=== PATIENT | female | born 1980 | race Caucasian/White ===

== ENCOUNTER 2020-01-14 17:16 | Emergency (ER) | payer OTHER ==
[2020-01-14 17:49] LABS: BILIRUBIN,URINE NEGATIVE (NEGATIVE); GLUCOSE, URINE (UA) NEGATIVE (NEGATIVE); KETONES,URINE (UA) NEGATIVE (NEGATIVE); LEUKOCYTE ESTERASE, URINE NEGATIVE (NEGATIVE); NITRITE,URINE NEGATIVE (NEGATIVE); OCCULT BLOOD,URINE NEGATIVE (NEGATIVE); PH,URINE 7.5 PH (5.0-7.5); PROTEIN,URINE NEGATIVE (NEGATIVE); UROBILINOGEN,URINE 1 (NORMAL) E.U./dL (NORMAL)
[2020-01-14 17:52] LABS: CLARITY,URINE CLEAR (CLEAR); HCG UR QUAL NEGATIVE
[2020-01-14 17:59] LABS: BASOPHILS # (AUTO) 0.1 10^3/uL (0.0-0.1); BASOPHILS % (AUTO) 0.9 %; EOSINOPHILS % (AUTO) 0.5 %; HGB - HEMOGLOBIN 15.1 g/dL (12.0-16.0); LYMPHOCYTES # (AUTO) 0.9 10^3/uL (1.5-3.5); LYMPHOCYTES % (AUTO) 13.2 %; MEAN CORPUSCULAR HEMOGLOBIN 33.9 pg (27.0-31.0); MEAN CORPUSCULAR HGB CONC 35.1 g/dL (32.0-36.0); MEAN CORPUSCULAR VOLUME 96.4 fL (81.0-99.0); MONOCYTES # (AUTO) 0.4 10^3/uL (0.0-1.0); MONOCYTES % (AUTO) 5.8 %; NEUTROPHILS # (AUTO) 5.2 10^3/uL (1.5-6.6); NEUTROPHILS % (AUTO) 79.3 %; PLT - PLATELET COUNT 261 10^3/uL (130-450); RED BLOOD COUNT 4.46 10^6/uL (4.20-5.40); RED CELL DISTRIBUTION WIDTH 12.5 % (12.0-15.0); WHITE BLOOD COUNT 6.5 x10^3/uL (4.8-10.8)
[2020-01-14 18:13] LABS: ALBUMIN 4.6 g/dL (3.2-5.5); ALBUMIN/GLOBULIN RATIO 1.4 (1.0-2.2); BILIRUBIN,TOTAL 1.2 mg/dL (0.2-1.0); CALCIUM 9.5 mg/dL (8.5-10.3); CREATININE 0.6 mg/dL (0.4-1.0); TOTAL PROTEIN 7.8 g/dL (6.7-8.2)
--- NOTE | 2020-01-14 18:52 | ED Physician Documentation ---
PD HPI FEMALE - Stated complaint Stated Complaint: FEMALE - Chief complaint Chief Complaint: Abd Pain - History obtained from History obtained from: Patient - History of Present Illness Timing - onset: How many days ago (2) Timing - duration: Days (2) Timing - details: Gradual onset, Still present Associated symptoms: Pelvic pain Contributing factors: Sexually active, Exposed to STD Similar symptoms before: Diagnosis (STD) Recently seen: Not recently seen - Additional information Additional information: 39 y/o female complains of pelvic cramping pain without discharge that has been present for about 2 days. It is bad enough that she has come to the ED for evaluation. She has an active herpes leasion and she has had unprotected intercourse and is concerned about an infection. She requests to be examined. Review of Systems Constitutional: denies: Fever Ears: denies: Ear pain Nose: denies: Congestion Throat: denies: Sore throat Respiratory: denies: Cough GI: denies: Abdominal Pain, Vomiting, Constipation, Diarrhea : reports: Other (pelvic pain). 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 : None HEENT: None Psych: None Musculoskeletal: None Derm: None - Past Surgical History Past Surgical History: No - Present Medications Home Medications: Ambulatory Orders Medication Instructions Recorded Confirmed Hydrocodone/Acetaminophen 1 - 2 each PO Q6H PRN #15 tablet 09/11/14 [Hydrocodon-Acetaminophen 5-325] Methocarbamol [Robaxin-750] 750 mg PO Q8HR PRN #20 tablet 09/11/14 - Allergies Allergies/Adverse Reactions: Allergies Allergy/AdvReac Type Severity Reaction Status Date / Time No Known Drug Allergies Allergy Verified 01/14/20 17:21 - Social History Does the pt smoke?: No Smoking Status: Never smoker Does the pt drink ETOH?: No Does the pt have substance abuse?: Yes - Immunizations Immunizations are current?: Yes - POLST Patient has POLST: No PD ED PE NORMAL - Vitals Vital signs reviewed: Yes (hypertensive ) - General General: Alert and oriented X 3, No acute distress, Well developed/nourished - HEENT HEENT: Atraumatic, PERRL, EOMI - Respiratory Respiratory: No respiratory distress - Abdomen Abdomen: Soft, Non tender, Non distended, No organomegaly - Female Female : Planogrammer present (Samantha), Other (There is an active herpes leasion to the left lower labial area. There is a mucopurulent dischage from the parous cervical os which is not friable. There is minimal pain to cervical motion. No masses or other tenderness is appreciated and the adenexa are unremarkable on exam. 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0 Baso # (Auto) 0.1 Absolute Nucleated RBC 0.00 Nucleated RBC % 0.0 Sodium 137 Potassium 3.2 L Chloride 97 L Carbon Dioxide 23 Anion Gap 17.0 H BUN 6 Creatinine 0.6 Estimated GFR (MDRD) 110 Glucose 124 H Calcium 9.5 Total Bilirubin 1.2 H AST 28 ALT 22 Alkaline Phosphatase 42 Total Protein 7.8 Albumin 4.6 Globulin 3.2 Albumin/Globulin Ratio 1.4 Lipase 45 Urine Color YELLOW Urine Clarity CLEAR Urine pH 7.5 Ur Specific [place] 1.015 Urine Protein NEGATIVE Urine Glucose (UA) NEGATIVE Urine Ketones NEGATIVE Urine Occult Blood NEGATIVE Urine Nitrite NEGATIVE Urine Bilirubin NEGATIVE Urine Urobilinogen 1 (NORMAL) Ur Leukocyte Esterase NEGATIVE Ur Microscopic Review NOT INDICATED Urine Culture Comments NOT INDICATED Urine HCG, Qual NEGATIVE PD MEDICAL DECISION MAKING - ED course Complexity details: considered differential, d/w patient ED course: 39-year-old female with concerns of exposure to STD has mucopurulent cervicitis and she is treated for chlamydia and GC with gram of a azithromycin and 250 mg of Rocephin IM. A cervical culture is obtained. Departure - Departure Disposition: 01 Home, Self Care Clinical Impression: Pelvic infection in female Condition: Stable Instructions: ED Chlamydia GC Poss Culture Pend Follow-Up: ANITA Queen [Provider Group] Comments: Today there is evidence of pelvic infection on exam and you have been treated. Culture results will be available in 3 days time.
[2020-01-14] MEDS ORDERED: LIDOCAINE 1% 2 ML VIAL MC ONE (18:56)
[2020-01-14] MEDS ORDERED: AZITHROMYCIN 250 MG TABLET PO STA (18:56)
[2020-01-14] MEDS ORDERED: cefTRIAXone 250 MG VIAL IM STA (18:56)
[2020-01-14 19:43] VITALS: BP 162/116
[2020-01-14 21:32] LABS: TRICHOMONAS VAGINALIS DNA NEGATIVE (NEGATIVE)
== END 2020-01-14 19:45 | disposition home or self-care (01) ==
LOC: ED 17:16
DX: N72 Inflammatory disease of cervix uteri (principal); A60.04 Herpesviral vulvovaginitis
CPT/HCPCS: 36415; 80053; 81003; 81025; 83690; 85025; 87491; 87591; 87661; 96372; 99283; 99284; A9270; 81001; 87086

== ENCOUNTER 2022-03-26 21:42 | Outpatient (CLI) | payer OTHER | END 2022-03-26 21:43 | disposition critical access hospital (66) | LOC: EMS 21:42 | DX: T50.992A Poisoning by other drugs, medicaments and biological substances, intentional self-harm, initial encounter (principal); Z78.1 Physical restraint status | CPT/HCPCS: A0425; A0429 ==

== ENCOUNTER 2022-03-26 22:10 | Emergency (ER) | payer OTHER ==
[2022-03-26] MEDS ORDERED: SODIUM CHLORIDE 0.9% 1,000 ML IV STA (22:26)
[2022-03-26 22:32] LABS: BASOPHILS # (AUTO) 0.1 10^3/uL (0.0-0.1); BASOPHILS % (AUTO) 1.2 %; EOSINOPHILS # (AUTO) 0.1 10^3/uL (0.0-0.7); EOSINOPHILS % (AUTO) 2.5 %; HCT - HEMATOCRIT 39.5 % (37.0-47.0); HGB - HEMOGLOBIN 13.6 g/dL (12.0-16.0); LYMPHOCYTES # (AUTO) 1.6 10^3/uL (1.5-3.5); LYMPHOCYTES % (AUTO) 31.2 %; MEAN CORPUSCULAR HEMOGLOBIN 34.3 pg (27.0-31.0); MEAN CORPUSCULAR HGB CONC 34.4 g/dL (32.0-36.0); MEAN CORPUSCULAR VOLUME 99.5 fL (81.0-99.0); MONOCYTES # (AUTO) 0.4 10^3/uL (0.0-1.0); NEUTROPHILS # (AUTO) 2.9 10^3/uL (1.5-6.6); NEUTROPHILS % (AUTO) 56.5 %; PLT - PLATELET COUNT 266 10^3/uL (130-450); RED BLOOD COUNT 3.97 10^6/uL (4.20-5.40); WHITE BLOOD COUNT 5.1 x10^3/uL (4.8-10.8)
[2022-03-26 22:41] LABS: MUDS CUTOFF CONCENTRATIONS CUTOFF CONC BELOW:
[2022-03-26 22:44] LABS: BILIRUBIN,URINE NEGATIVE (NEGATIVE); GLUCOSE, URINE (UA) NEGATIVE (NEGATIVE); KETONES,URINE (UA) TRACE mg/dL (NEGATIVE); LEUKOCYTE ESTERASE, URINE NEGATIVE (NEGATIVE); NITRITE,URINE NEGATIVE (NEGATIVE); OCCULT BLOOD,URINE NEGATIVE (NEGATIVE); PROTEIN,URINE NEGATIVE (NEGATIVE); UROBILINOGEN,URINE 0.2 (NORMAL) E.U./dL (NORMAL)
[2022-03-26 22:45] LABS: CLARITY,URINE CLEAR (CLEAR)
[2022-03-26 22:48] LABS: ACETAMINOPHEN < 10 ug/mL (10-30); ALBUMIN 3.9 g/dL (3.2-5.5); ALBUMIN/GLOBULIN RATIO 1.3 (1.0-2.2); ALKALINE PHOSPHATASE 43 IU/L (42-121); ALT ALANINE AMINOTRANSFERASE 25 IU/L (10-60); AST ASPARTATE AMINOTRANSFERASE 34 IU/L (10-42); BILIRUBIN,TOTAL 0.5 mg/dL (0.2-1.0); BUN - BLOOD UREA NITROGEN 16 mg/dL (6-20); CALCIUM 8.5 mg/dL (8.5-10.3); CARBON DIOXIDE - CO2 21 mmol/L (21-32); CHLORIDE 105 mmol/L (101-111); CREATININE 0.7 mg/dL (0.4-1.0); ETOH - ETHANOL 182.9 mg/dL; GFR - MDRD 91 (>89); GLUCOSE 89 mg/dL (70-100); LIPASE 60 U/L (22-51); POTASSIUM 3.5 mmol/L (3.5-5.0); SALICYLATE < 6.0 mg/dL; SODIUM 140 mmol/L (135-145)
[2022-03-26 22:49] LABS: HCG UR QUAL NEGATIVE
[2022-03-26 22:59] LABS: AMPHETAMINE SCREEN,URINE NEGATIVE (NEGATIVE); BARBITURATE SCREEN,UR NEGATIVE (NEGATIVE); BENZODIAZEPINES SCREEN, URINE POSITIVE (NEGATIVE); COCAINE SCREEN URINE NEGATIVE (NEGATIVE); METHADONE SCREEN, URINE NEGATIVE (NEGATIVE); METHAMPHETAMINES SCREEN, URINE NEGATIVE (NEGATIVE); OPIATE SCREEN, URINE NEGATIVE (NEGATIVE); OXYCODONE SCREEN, URINE NEGATIVE (NEGATIVE); PROPOXYPHENE SCREEN, URINE NEGATIVE (NEGATIVE); THC CANNABINOID SCREEN, URINE NEGATIVE (NEGATIVE); TRICYCLIC ANTIDEPRESSANT,URINE NEGATIVE (NEGATIVE)
--- NOTE | 2022-03-27 07:08 | ED Physician Documentation ---
PD HPI MHE - Stated complaint Stated Complaint: SI/OD - Chief complaint Chief Complaint: MHE - History obtained from History obtained from: Patient, EMS - Additional information Additional information: The patient is brought to the emergency department by EMS for chief complaint of alcohol intoxication and multiple medication overdose. The medics report that the patient states that she has been very depressed because her son is very ill in [place] and is dying. The patient states that she has not heard from her son at last she knew he was in the hospital and she is afraid he is declining. She states that she drank alcohol and confirms having taken lorazepam, diazepam, and fluoxetine. She will not admit to a specific number to me, although she told the medics she took 20 each of the Ativan and Valium and 10 tablets of the fluoxetine. It is not clear exactly what time this might have happened. Medics state they did find an empty fifth size bottle of vodka, but did not find any pill bottles. The patient received somewhat intoxicated in route but has not had any hypoventilation or respiratory depression in route and has been fairly easy to arouse despite being drowsy. No other complaints at this time. Review of Systems Constitutional: reports: Reviewed and negative Eyes: reports: Reviewed and negative Ears: reports: Reviewed and negative Nose: reports: Reviewed and negative Throat: reports: Reviewed and negative Cardiac: reports: Reviewed and negative Respiratory: reports: Reviewed and negative GI: reports: Reviewed and negative : reports: Reviewed and negative Skin: reports: Reviewed and negative Musculoskeletal: reports: Reviewed and negative Neurologic: reports: Reviewed and negative Psychiatric: reports: Reviewed and negative Endocrine: reports: Reviewed and negative Immunocompromised: reports: Reviewed and negative PD PAST MEDICAL HISTORY - Past Medical History Cardiovascular: None Respiratory: None Neuro: None Endocrine/Autoimmune: None GI: None 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 : None HEENT: None Psych: Depression Musculoskeletal: None Derm: None - Past Surgical History Past Surgical History: No - Present Medications Home Medications: Ambulatory Orders Medication Instructions Recorded Confirmed Fluvoxamine Maleate 50 mg PO DAILY 03/27/22 03/27/22 LORazepam [Ativan] 1 mg PO HS 03/27/22 03/27/22 diazePAM [Valium] 5 mg PO Q6HR PRN 03/27/22 03/27/22 - Allergies Allergies/Adverse Reactions: Allergies Allergy/AdvReac Type Severity Reaction Status Date / Time No Known Drug Allergies Allergy Verified 03/26/22 22:24 - Social History Does the pt smoke?: No Smoking Status: Current every day smoker Does the pt drink ETOH?: Yes ETOH Use: Beer Does the pt have substance abuse?: Yes - Immunizations Immunizations are current?: Yes - POLST Patient has POLST: No PD ED PE NORMAL - Vitals Vital signs reviewed: Yes - General General: No acute distress, Well developed/nourished, Other (Drowsy, but awake and answers questions appropriately.) - HEENT HEENT: Atraumatic, PERRL, EOMI, Moist mucous membranes - Neck Neck: Supple, no meningeal sign - Cardiac Cardiac: RRR, No murmur, Strong equal pulses - Respiratory Respiratory: No respiratory distress, Clear bilaterally - Abdomen Abdomen: Soft, Non tender, Non distended - Derm Derm: Normal color, Warm and dry, No rash - Extremities Extremities: No deformity - Neuro Neuro: Other (Awake, but drowsy; answers questions appropriately. Appears moderately intoxicated.) - Psych Psych: Normal mood, Normal affect Results - Vitals Vitals: Vital Signs - 24 hr 03/26/22 03/26/22 03/26/22 22:00 22:43 23:26 Temperature 36.7 C Heart Rate 58 L 58 L 63 Respiratory 19 14 18 Rate Blood Pressure 112/82 H 102/72 94/61 O2 Saturation 100 97 94 03/27/22 03/27/22 03/27/22 00:00 00:29 00:59 Temperature Heart Rate 64 63 61 Respiratory 17 17 19 Rate Blood Pressure 98/69 107/75 100/64 O2 Saturation 95 95 94 03/27/22 03/27/22 03/27/22 01:00 02:00 03:00 Temperature 36.1 C L Heart Rate 59 L 61 62 Respiratory 20 19 19 Rate Blood Pressure 106/66 107/57 L 102/58 L O2 Saturation 94 94 94 03/27/22 03/27/22 03/27/22 04:00 05:00 05:30 Temperature 37.0 C Heart Rate 66 65 55 L Respiratory 19 17 17 Rate Blood Pressure 104/67 107/77 107/72 O2 Saturation 95 98 96 03/27/22 06:30 Temperature Heart Rate 53 L Respiratory 18 Rate Blood Pressure 95/56 L O2 Saturation 96 Oxygen O2 Source Room air - Labs Labs: Laboratory Tests 03/26/22 03/26/22 03/26/22 22:20 22:26 22:28 WBC 5.1 RBC 3.97 L Hgb 13.6 Hct 39.5 MCV 99.5 H MCH 34.3 H MCHC 34.4 RDW 13.0 Plt Count 266 MPV 9.0 Neut # (Auto) 2.9 Lymph # (Auto) 1.6 [place] # (Auto) 0.4 Eos # (Auto) 0.1 Baso # (Auto) 0.1 Absolute Nucleated RBC 0.00 Nucleated RBC % 0.0 Sodium Potassium Chloride Carbon Dioxide Anion Gap BUN Creatinine Estimated GFR (MDRD) Glucose Calcium Total Bilirubin AST ALT Alkaline Phosphatase Total Protein Albumin Globulin Albumin/Globulin Ratio Lipase TSH Urine Color YELLOW Urine Clarity CLEAR Urine pH 6.0 Ur Specific [place] 1.025 Urine Protein NEGATIVE Urine Glucose (UA) NEGATIVE Urine Ketones TRACE Urine Occult Blood NEGATIVE Urine Nitrite NEGATIVE Urine Bilirubin NEGATIVE Urine Urobilinogen 0.2 (NORMAL) Ur Leukocyte Esterase NEGATIVE Ur Microscopic Review NOT INDICATED Urine Culture Comments NOT INDICATED Urine HCG, Qual NEGATIVE Salicylates Urine Opiates Screen NEGATIVE Ur Oxycodone Screen NEGATIVE Urine Methadone Screen NEGATIVE Ur Propoxyphene Screen NEGATIVE Acetaminophen Ur Barbiturates Screen NEGATIVE Ur Tricyclics Screen NEGATIVE Ur Phencyclidine Scrn NEGATIVE Ur Amphetamine Screen NEGATIVE U Methamphetamines Scrn NEGATIVE U Benzodiazepines Scrn POSITIVE H Urine Cocaine Screen NEGATIVE U Cannabinoids Screen NEGATIVE Ethyl Alcohol SARS-CoV-2 (PCR) 03/26/22 03/26/22 03/26/22 22:28 22:28 22:28 WBC RBC Hgb Hct MCV MCH MCHC RDW Plt Count MPV Neut # (Auto) Lymph # (Auto) [place] # (Auto) Eos # (Auto) Baso # (Auto) Absolute Nucleated RBC Nucleated RBC % Sodium 140 Potassium 3.5 Chloride 105 Carbon Dioxide 21 Anion Gap 14.0 H BUN 16 Creatinine 0.7 Estimated GFR (MDRD) 91 Glucose 89 Calcium 8.5 Total Bilirubin 0.5 AST 34 ALT 25 Alkaline Phosphatase 43 Total Protein 7.0 Albumin 3.9 Globulin 3.1 Albumin/Globulin Ratio 1.3 Lipase 60 H TSH 1.24 Urine Color Urine Clarity Urine pH Ur Specific [place] Urine Protein Urine Glucose (UA) Urine Ketones Urine Occult Blood Urine Nitrite Urine Bilirubin Urine Urobilinogen Ur Leukocyte Esterase Ur Microscopic Review Urine Culture Comments Urine HCG, Qual Salicylates < 6.0 Urine Opiates Screen Ur Oxycodone Screen Urine Methadone Screen Ur Propoxyphene Screen Acetaminophen < 10 L Ur Barbiturates Screen Ur Tricyclics Screen Ur Phencyclidine Scrn Ur Amphetamine Screen U Methamphetamines Scrn U Benzodiazepines Scrn Urine Cocaine Screen U Cannabinoids Screen Ethyl Alcohol 182.9 SARS-CoV-2 (PCR) NOT DETECTED PD Medical Decision Making - ED course Complexity details: reviewed results, re-evaluated patient, considered differential, d/w patient ED course: The patient appeared intoxicated but given the ease with which she could be aroused and the lack of severe respiratory depression, I was not sure that she had really taken as much of the benzodiazepines as she reported. Her case was discussed with poison control, who recommended an 8-hour observation. After which the patient could be declared medically clear. The patient was worked up with laboratory studies including CBC, ER abdominal panel, alcohol, TSH, aspirin, Tylenol, urine drug screen, urinalysis, and urine test. The CBC and ER abdominal panels were unremarkable by my interpretation. Alcohol level was found to be 182. Tylenol and salicylate levels were negative and urine drug screen was positive for benzodiazepines only. All studies were ordered and interpreted by me. The patient was observed in the emergency department for the recommended 8 hours, during which she had an uneventful course and mostly rested quietly. Upon reevaluation, the patient did reiterate that she had felt suicidal and that is why she took the pills on top of drinking the alcohol. At this point in time I felt she should stay and speak with social service liaison to determine the best disposition and consideration of her suicidal ideation and attempt. The patient was willing to stay. She did eat breakfast and at this time, is awaiting social work evaluation. The patient signed out to the [facility] emergency physician at change of shift, pending social work evaluation and final disposition. Departure - Departure Clinical Impression: Attempted suicide Medication overdose Qualifiers: Encounter type: initial encounter Injury intent: intentional self-harm Qualified Code(s): T50.902A - Poisoning by unspecified drugs, medicaments and biological substances, intentional self-harm, initial encounter Alcoholic intoxication Qualifiers: Complication of substance-induced condition: uncomplicated Qualified Code(s): F10.920 - Alcohol use, unspecified with intoxication, uncomplicated Depression Qualifiers: Depression Type: major depressive disorder Major depression recurrence: unspecified whether recurrent Active/Remission status: currently active Major depression episode severity: moderate Qualified Code(s): F32.1 - Major depressive disorder, single episode, moderate Condition: Serious
--- NOTE | 2022-03-27 11:19 | ED Physician Documentation ---
ED Addendum - Addendum Addendum: 03/27/22 11:17 Pt seen by ROLA. She is clinically sober, ambulating without difficulty, clear speech. She is feeling better this morning. She does not recall the events of last night but does not feel like harming herself and does not feel suicidal. She is expecting to have her kids starting today for the week and is looking forward to making them dinner tonight. Her psychiatry appointment was moved up till tomorrow morning.She does not want to be hospitalized at this time. She appears to be forward thinking and not gravely disabled and I do not think she would qualify for involuntary detainment. Patient is discharged and counseled on need to return to the ER with any worse segundo symptoms. Departure - Departure Disposition: 01 Home, Self Care Clinical Impression: Medication overdose Qualifiers: Encounter type: initial encounter Injury intent: intentional self-harm Qualified Code(s): T50.902A - Poisoning by unspecified drugs, medicaments and biological substances, intentional self-harm, initial encounter Alcoholic intoxication Qualifiers: Complication of substance-induced condition: uncomplicated Qualified Code(s): F10.920 - Alcohol use, unspecified with intoxication, uncomplicated Depression Qualifiers: Depression Type: major depressive disorder Major depression recurrence: unspecified whether recurrent Active/Remission status: currently active Major depression episode severity: moderate Qualified Code(s): F32.1 - Major depressive disorder, single episode, moderate Condition: Stable Instructions: ED Alcohol Intoxication Comments: You were evaluated last night after drinking too much alcohol and taking too much of your prescribed medications. At this time it appears that you are okay to go home and not feeling like you want to hurt yourself. The clinical social worker has moved up your appointment with your psychiatrist tomorrow morning. Please utilize resources given to you by Delphine or clinical social worker. If it anytime you are not feeling like you want to hurt yourself or feel unsafe please return to the emergency department. [id number] Suicide and Crisis Lifeline Hours: Available 24 hours. Languages: Belarusian, Macedonian. Call [phone] Discharge Date/Time: 03/27/22 11:45
[2022-03-27 11:30] VITALS: BP 104/67
== END 2022-03-27 11:45 | disposition home or self-care (01) ==
LOC: ED 22:10
DX: T42.4X2A Poisoning by benzodiazepines, intentional self-harm, initial encounter (principal); T14.91XA Suicide attempt, initial encounter; F10.129 Alcohol abuse with intoxication, unspecified; Y90.6 Blood alcohol level of 120-199 mg/100 ml; F32.1 Major depressive disorder, single episode, moderate; F17.200 Nicotine dependence, unspecified, uncomplicated; Z20.822 Contact with and (suspected) exposure to COVID-19
CPT/HCPCS: 36415; 80053; 80306; 80307; 80320; 80329; 81001; 81003; 81025; 83690; 84443; 85025; 86769; 87086; 93005; 96360; 99284

== ENCOUNTER 2022-04-06 00:08 | Emergency (ER) | payer OTHER ==
[2022-04-06 00:22] VITALS: BP 100/45
--- OUTSIDE RECORDS SUMMARY | 2022-04-06 00:24 | EXTERNAL MEDICAL SUMMARY RPT | Continuity of Care Document ---
:1980 Author Organization [facility] Address [address] [place] [address] Phone Care Team Providers Name Role Phone Unavailable Unavailable Unavailable Delia Mae Unavailable Unavailable Allergies and Intolerances date description facility type (no date) No Known Drug Allergies [facility] ([facility] own) Encounters No information. Functional Status No information. Immunizations No information. Medications No information. Problems date description facility 2022-03-28 00:00 Alcoholic intoxication [facility] 2022-03-28 00:00 Major depressive disorder [facility] 2022-03-28 00:00 [facility] Procedures No information. Results/Labs test date author facility value unit interpret ation Result panel 1 (unknown[facility] (no [facility] Result panel 2 (unknown) (no date) (unknown[facility]) Result panel 3 (unknown) (no date) (unknown[facility]) Result panel 4 (unknown) (no date) (unknown[facility]) Result panel 5 (unknown) (no date) (unknown[facility]) Result panel 6 (unknown) (no date) (unknown[facility]) Result panel 7 (unknown) (no date) (unknown[facility]) Result panel 8 (unknown) (no date) (unknown[facility]) Result panel 9 (unknown) (no date) (unknown[facility]) Result panel 10 (unknown) (no date) (unknown[facility]) Result panel 11 (unknown) (no date) (unknown[facility]) Result panel 12 (unknown) (no date) (unknown[facility]) Result panel 13 (unknown) (no date) (unknown[facility]) Result panel 14 (unknown) (no date) (unknown[facility]) Result panel 15 (unknown) (no date) (unknown[facility]) Result panel 16 (unknown) (no date) (unknown[facility]) Result panel 17 (unknown) (no date) (unknown[facility]) Result panel 18 (unknown) (no date) (unknown[facility]) Result panel 19 (unknown) (no date) (unknown[facility]) Result panel 20 (unknown) (no date) (unknown[facility]) Result panel 21 (unknown) (no date) (unknown[facility]) Result panel 22 (unknown) (no date) (unknown[facility]) Result panel 23 (unknown) (no date) (unknown[facility]) Result panel 24 (unknown) (no date) (unknown[facility]) Result panel 25 (unknown) (no date) (unknown[facility]) Result panel 26 (unknown) (no date) (unknown) [facility]) Result panel 27 (unknown) (no date) (unknown[facility]) Result panel 28 (unknown) (no date) (unknown[facility]) Result panel 29 (unknown) (no date) (unknown[facility]) Result panel 30 (unknown) (no date) (unknown[facility]) Result panel 31 (unknown) (no date) (unknown[facility]) Result panel 32 (unknown) (no date) (unknown[facility]) Result panel 33 (unknown) (no date) (unknown[facility]) Result panel 34 (unknown) (no date) (unknown[facility]) Result panel 35 (unknown) (no date) (unknown[facility]) Result panel 36 (unknown) (no date) (unknown[facility]) Result panel 37 (unknown) (no date) (unknown[facility]) Result panel 38 (unknown) (no date) (unknown) [facility]) Result panel 39 (unknown) (no date) (unknown[facility]) Result panel 40 (unknown) (no date) (unknown[facility]) Result panel 41 (unknown) (no date) (unknown[facility]) Result panel 42 (unknown) (no date) (unknown[facility]) Result panel 43 (unknown) (no date) (unknown[facility]) Result panel 44 (unknown) (no date) (unknown) [facility]) Result panel 45 (unknown) (no date) (unknown[facility]) Result panel 46 (unknown) (no date) (unknown) [facility]) Result panel 47 (unknown) (no date) (unknown[facility]) Result panel 48 (unknown) (no date) (unknown[facility]) Result panel 49 (unknown) (no date) (unknown[facility]) Result panel 50 (unknown) (no date) (unknown) [facility]) Result panel 51 (unknown) (no date) (unknown) [facility]) Result panel 52 (unknown) (no date) (unknown) [facility]) Result panel 53 (unknown) (no date) (unknown) [facility]) Result panel 54 (unknown) (no date) (unknown) [facility]) Result panel 55 (unknown) (no date) (unknown[facility]) Result panel 56 (unknown) (no date) (unknown) [facility]) Result panel 57 (unknown) (no date) (unknown) [facility]) Result panel 58 (unknown) (no date) (unknown[facility]) Result panel 59 (unknown) (no date) (unknown[facility]) Result panel 60 (unknown) (no date) (unknown[facility]) Result panel 61 (unknown) (no date) (unknown[facility]) Result panel 62 (unknown) (no date) (unknown[facility]) Result panel 63 (unknown) (no date) (unknown) [facility]) Result panel 64 (unknown) (no date) (unknown) [facility]) Result panel 65 (unknown) (no date) (unknown) [facility]) Result panel 66 (unknown) (no date) (unknown) [facility]) Result panel 67 (unknown) (no date) (unknown) [facility]) Result panel 68 (unknown) (no date) (unknown) [facility]) Result panel 69 (unknown) (no date) (unknown) [facility]) Result panel 70 (unknown) (no date) (unknown) [facility]) Result panel 71 (unknown) (no date) (unknown) [facility]) Result panel 72 (unknown) (no date) (unknown) [facility]) Result panel 73 (unknown) (no date) (unknown) [facility]) Result panel 74 (unknown) (no date) (unknown) [facility]) Result panel 75 (unknown) (no date) (unknown) [facility]) Result panel 76 (unknown) (no date) (unknown) [facility]) Result panel 77 (unknown) (no date) (unknown[facility]) Result panel 78 (unknown) (no date) (unknown) [facility]) Result panel 79 (unknown) (no date) (unknown) [facility]) Result panel 80 (unknown) (no date) (unknown) [facility]) Result panel 81 (unknown) (no date) (unknown) [facility]) Result panel 82 (unknown) (no date) (unknown) [facility]) Result panel 83 (unknown) (no date) (unknown) [facility]) Result panel 84 (unknown) (no date) (unknown) [facility]) Result panel 85 (unknown) (no date) (unknown) [facility]) Result panel 86 (unknown) (no date) (unknown) [facility]) Result panel 87 (unknown) (no date) (unknown[facility]) Result panel 88 (unknown) (no date) (unknown[facility]) Result panel 89 (unknown) (no date) (unknown) [facility]) Result panel 90 (unknown) (no date) (unknown[facility]) Result panel 91 (unknown) (no date) (unknown) [facility]) Result panel 92 (unknown) (no date) (unknown) [facility]) Result panel 93 (unknown) (no date) (unknown) [facility]) Result panel 94 (unknown) (no date) (unknown[facility]) Result panel 95 (unknown) (no date) (unknown[facility]) Result panel 96 (unknown) (no date) (unknown[facility]) Result panel 97 (unknown) (no date) (unknown[facility]) Result panel 98 (unknown) (no date) (unknown[facility]) Result panel 99 (unknown) (no date) (unknown[facility]) Result panel 100 (unknown) (no date) (unknown[facility]) Result panel 101 (unknown) (no date) (unknown[facility]) Result panel 102 (unknown) (no date) (unknown[facility]) Result panel 103 (unknown) (no date) (unknown[facility] Result panel 104 (unknown) (no date) (unknown) (unknown) Negative (units (un[facility] own) unknown) (unknown) (no date) (unknown) (unknown) Normal (units (un[facility] own) unknown) (unknown) (no date) (unknown) (unknown) Positive (units (un[facility] own) unknown) Result panel 105 (unknown) (no date) (unknown) (unknown) <=1.005 (units (unkn own) unknown) (unknown) (no date) (unknown) (unknown) 0.2 e.u./dl (unkn own) (unknown) (no date) (unknown) (unknown) 6.0 (units (un[facility] own) unknown) (unknown) (no date) (unknown) (unknown) CLEAR (units (un[facility] own) unknown) (unknown) (no date) (unknown) (unknown) LT. YELLOW (units (un known) unknown) (unknown) (no date) (unknown) (unknown) LT. YELLOW (units (un known) unknown) (unknown) (no date) (unknown) (unknown) NEGATIVE (units (un[facility] own) unknown) (unknown) (no date) (unknown) (unknown) NEGATIVE g/dl (un[facility] own) Result panel 106 (unknown) (no date) (unknown) (unknown) <=1.005 (units (unkn own) unknown) (unknown) (no date) (unknown) (unknown) 0-1/HPF (units (unkn own) unknown) (unknown) (no date) (unknown) (unknown) 0.2 e.u./dl (un[facility] own) (unknown) (no date) (unknown) (unknown) 6.0 (units (unkn own) unknown) (unknown) (no date) (unknown) (unknown) CLEAR (units (unkn own) unknown) (unknown) (no date) (unknown) (unknown) Cult Not (units (unkn own) Indicated unknown) (unknown) (no date) (unknown) (unknown) LT. YELLOW (units (un known) unknown) (unknown) (no date) (unknown) (unknown) LT. YELLOW (units (un known) unknown) (unknown) (no date) (unknown) (unknown) NEGATIVE (units (un[facility] own) unknown) (unknown) (no date) (unknown) (unknown) NEGATIVE g/dl (un[facility] own) (unknown) (no date) (unknown) (unknown) None Seen (units (unk nown) unknown) (unknown) (no date) (unknown) (unknown) Occasional (units (un known) (0-1) unknown) Result panel 107 (unknown) (no date) (unknown) (unknown) > 60 ml/min (un[facility] own) (unknown) (no date) (unknown) (unknown) > 60 ml/min (un[facility] own) (unknown) (no date) (unknown) (unknown) < 1.0 mg/dl (unkn own) (unknown) (no date) (unknown) (unknown) < 1.0 mg/dl (unkn own) (unknown) (no date) (unknown) (unknown) < 10 ug/ml (un[facility] own) (unknown) (no date) (unknown) (unknown) < 10 ug/ml (un[facility] own) (unknown) (no date) (unknown) (unknown) 0.4 mg/dl (un[facility] own) (unknown) (no date) (unknown) (unknown) 0.74 mg/dl (un[facility] own) (unknown) (no date) (unknown) (unknown) 1.2 (units unknown) (unknown) (unknown) (no date) (unknown) (unknown) 106 mmol/l (unkn own) (unknown) (no date) (unknown) (unknown) 124 mg/dl (un[facility] own) (unknown) (no date) (unknown) (unknown) 124 mg/dl (un[facility] own) (unknown) (no date) (unknown) (unknown) 140 mmol/l (un[facility] own) (unknown) (no date) (unknown) (unknown) 15 mg/dl (unkn own) (unknown) (no date) (unknown) (unknown) 20.3 (units unknown) (unknown) (unknown) (no date) (unknown) (unknown) 21 mmol/l (unkn own) (unknown) (no date) (unknown) (unknown) 28 iu/l (un[facility] own) (unknown) (no date) (unknown) (unknown) 3.3 g/dl (un[facility] own) (unknown) (no date) (unknown) (unknown) 3.9 mmol/l (unkn own) (unknown) (no date) (unknown) (unknown) 38 iu/l (unkn own) (unknown) (no date) (unknown) (unknown) 4.0 g/dl (unkn own) (unknown) (no date) (unknown) (unknown) 52 u/l (un[facility] own) (unknown) (no date) (unknown) (unknown) 7.3 g/dl (un[facility] own) (unknown) (no date) (unknown) (unknown) 79 mg/dl (un[facility] own) (unknown) (no date) (unknown) (unknown) 79 mg/dl (un[facility] own) (unknown) (no date) (unknown) (unknown) 8.7 mg/dl (un[facility] own) Result panel 108 (unknown) (no date) (unknown) (unknown) 1.3 % (un[facility] own) (unknown) (no date) (unknown) (unknown) 100 /ul (un[facility] own) (unknown) (no date) (unknown) (unknown) 103.0 fl (un[facility] own) (unknown) (no date) (unknown) (unknown) 13.3 g/dl (un[facility] own) (unknown) (no date) (unknown) (unknown) 14.0 % (unkn own) (unknown) (no date) (unknown) (unknown) 1500 /ul (un[facility] own) (unknown) (no date) (unknown) (unknown) 2.9 % (un[facility] own) (unknown) (no date) (unknown) (unknown) 200 /ul (un[facility] own) (unknown) (no date) (unknown) (unknown) 254 x10 3/ul (unkn own) (unknown) (no date) (unknown) (unknown) 28.5 % (unkn own) (unknown) (no date) (unknown) (unknown) 3.80 x10 6/ul (unkn own) (unknown) (no date) (unknown) (unknown) 3100 /ul (unkn own) (unknown) (no date) (unknown) (unknown) 34.0 % (un[facility] own) (unknown) (no date) (unknown) (unknown) 35.0 pg (unkn own) (unknown) (no date) (unknown) (unknown) 39.1 % (unkn own) (unknown) (no date) (unknown) (unknown) 5.3 x10 3/ul (unkn own) (unknown) (no date) (unknown) (unknown) 500 /ul (un[facility] own) (unknown) (no date) (unknown) (unknown) 57.6 % (unkn own) (unknown) (no date) (unknown) (unknown) 9.7 % (un[facility] own) Result panel 109 (unknown) (no date) (unknown) (unknown) 0.89 ng/dl (unkn own) (unknown) (no date) (unknown) (unknown) 1.17 uiu/ml (unkn own) Result panel 110 (unknown) (no (unknown) (unknown) (no value) (units (unk nown) date) unknown) (unknown) (no (unknown) (unknown) (Diflucan) (units (unk nown) date) unknown) (unknown) (no (unknown) (unknown) 00:00 03/28/22 (units (unknown) date) unknown) (unknown) (no (unknown) (unknown) 00:30 (units (unkno wn) date) unknown) (unknown) (no (unknown) (unknown) 03/27/22 03/27/22 (units (unknown) date) 03/27/22 unknown) Range/Units (unknown) (no (unknown) (unknown) 03/27/22 03/27/22 (units (unknown) date) Range/Units unknown) (unknown) (no (unknown) (unknown) 03/27/22 20:23 (units (unknown) date) unknown) (unknown) (no (unknown) (unknown) 03/27/22 20:30 (units (unknown) date) unknown) (unknown) (no (unknown) (unknown) 03/27/22 21:19 (units (unknown) date) unknown) (unknown) (no (unknown) (unknown) 03/27/22 21:44 (units (unknown) date) unknown) (unknown) (no (unknown) (unknown) 03/27/22 (units (unkno wn) date) unknown) (unknown) (no (unknown) (unknown) 150 mg PO DAILY (units (unknown) date) Qty: 1 1RF unknown) (unknown) (no (unknown) (unknown) 20:15 03/27/22 (units (unknown) date) unknown) (unknown) (no (unknown) (unknown) 20:23 20:30 21:19 (units (unknown) date) unknown) (unknown) (no (unknown) (unknown) 21:08 03/27/22 (units (unknown) date) unknown) (unknown) (no (unknown) (unknown) 21:08 (units (unkno wn) date) unknown) (unknown) (no (unknown) (unknown) 21:19 21:19 (units (un known) date) unknown) (unknown) (no (unknown) (unknown) 21:20 03/27/22 (units (unknown) date) unknown) (unknown) (no (unknown) (unknown) 21:30 03/27/22 (units (unknown) date) unknown) (unknown) (no (unknown) (unknown) 21:30 (units (unkno wn) date) unknown) (unknown) (no (unknown) (unknown) 22:00 03/27/22 (units (unknown) date) unknown) (unknown) (no (unknown) (unknown) 22:30 (units (unkno wn) date) unknown) (unknown) (no (unknown) (unknown) 23:00 03/27/22 (units (unknown) date) unknown) (unknown) (no (unknown) (unknown) 23:30 03/27/22 (units (unknown) date) unknown) (unknown) (no (unknown) (unknown) :56 03/28/22 (units (unknown) date) unknown) (unknown) (no (unknown) (unknown) 23:56 (units (unkno wn) date) unknown) (unknown) (no (unknown) (unknown) 25 mg PO BEDTIME (units (unknown) date) PRN (Reason: sleep) unknown) Qty: 7 0RF (unknown) (no (unknown) (unknown) 50 mg DAILY (units (un known) date) unknown) (unknown) (no (unknown) (unknown) 50 mg PO DAILY (units (unknown) date) unknown) (unknown) (no (unknown) (unknown) ALT (<35) IU/L (units (unknown) date) unknown) (unknown) (no (unknown) (unknown) ALT 28 (<35) IU/L (units (unknown) date) unknown) (unknown) (no (unknown) (unknown) AST (14-36) IU/L (units (unknown) date) unknown) (unknown) (no (unknown) (unknown) AST 38 H (14-36) (units (unknown) date) IU/L unknown) (unknown) (no (unknown) (unknown) Abnormal uterine (units (unknown) date) bleeding (AUB) unknown) (unknown) (no (unknown) (unknown) Acetaminophen < 10 (units (unknown) date) (10-30) ug/mL unknown) (unknown) (no (unknown) (unknown) Acetaminophen (units ( unknown) date) (10-30) ug/mL unknown) (unknown) (no (unknown) (unknown) Acetaminophen Stat (units (unknown) date) unknown) (unknown) (no (unknown) (unknown) Age/Sex: 41 / F (units (unknown) date) unknown) (unknown) (no (unknown) (unknown) Albumin (3.5-5.0) (units (unknown) date) g/dL unknown) (unknown) (no (unknown) (unknown) Albumin 4.0 (units (un known) date) (3.5-5.0) g/dL unknown) (unknown) (no (unknown) (unknown) Albumin/Globulin (units (unknown) date) Ratio (1.0-2.8) unknown) (unknown) (no (unknown) (unknown) Albumin/Globulin (units (unknown) date) Ratio 1.2 (1.0-2.8) unknown) (unknown) (no (unknown) (unknown) Alkaline (units (unkno wn) date) Phosphatase unknown) (38-126) U/L (unknown) (no (unknown) (unknown) Alkaline (units (unkno wn) date) Phosphatase 52 unknown) (38-126) U/L (unknown) (no (unknown) (unknown) Allergies (units (unkn own) date) unknown) (unknown) (no (unknown) (unknown) Allergy/AdvReac (units (unknown) date) Type Severity unknown) Reaction Status Date / Time (unknown) (no (unknown) (unknown) Anesthesia (units (unk nown) date) unknown) (unknown) (no (unknown) (unknown) BUN (7-17) mg/dL (units (unknown) date) unknown) (unknown) (no (unknown) (unknown) BUN 15 (7-17) (units ( unknown) date) mg/dL unknown) (unknown) (no (unknown) (unknown) BUN/Creatinine (units (unknown) date) Ratio (6-22) unknown) (unknown) (no (unknown) (unknown) BUN/Creatinine (units (unknown) date) Ratio 20.3 (6-22) unknown) (unknown) (no (unknown) (unknown) Baso # (Auto) (units ( unknown) date) (0-100) /uL unknown) (unknown) (no (unknown) (unknown) Baso # (Auto) 100 (units (unknown) date) (0-100) /uL unknown) (unknown) (no (unknown) (unknown) Baso % (Auto) (units ( unknown) date) (0-2) % unknown) (unknown) (no (unknown) (unknown) Baso % (Auto) 1.3 (units (unknown) date) (0-2) % unknown) (unknown) (no (unknown) (unknown) Blood Pressure (units (unknown) date) 102/60 unknown) (unknown) (no (unknown) (unknown) Blood Pressure (units (unknown) date) 110/65 98/61 unknown) (unknown) (no (unknown) (unknown) Blood Pressure (units (unknown) date) 99/55 L 03/27/22 unknown) 20:15 (unknown) (no (unknown) (unknown) Blood Pressure (units (unknown) date) 99/55 L 89/55 L unknown) (unknown) (no (unknown) (unknown) Blood Pressure (units (unknown) date) unknown) (unknown) (no (unknown) (unknown) Breast cancer (units ( unknown) date) unknown) (unknown) (no (unknown) (unknown) Breast cyst (units (un known) date) () unknown) (unknown) (no (unknown) (unknown) Calcium (8.4-10.2) (units (unknown) date) mg/dL unknown) (unknown) (no (unknown) (unknown) Calcium 8.7 (units (un known) date) (8.4-10.2) mg/dL unknown) (unknown) (no (unknown) (unknown) Carbon Dioxide (units (unknown) date) (22-32) mmol/L unknown) (unknown) (no (unknown) (unknown) Carbon Dioxide 21 (units (unknown) date) L (22-32) mmol/L unknown) (unknown) (no (unknown) (unknown) Chief Complaint: (units (unknown) date) Psychiatric unknown) Symptoms (unknown) (no (unknown) (unknown) Chloride (98-107) (units (unknown) date) mmol/L unknown) (unknown) (no (unknown) (unknown) Chloride 106 (units (u nknown) date) (98-107) mmol/L unknown) (unknown) (no (unknown) (unknown) Complete Blood (units (unknown) date) Count AUTO DIFF unknown) Stat (unknown) (no (unknown) (unknown) Comprehensive (units ( unknown) date) Metabolic Panel unknown) Stat (unknown) (no (unknown) (unknown) [place] 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) Stat (unknown) (no (unknown) (unknown) Course (units (unkno wn) date) unknown) (unknown) (no (unknown) (unknown) Creatinine (units (unk nown) date) (0.52-1.04) mg/dL unknown) (unknown) (no (unknown) (unknown) Creatinine 0.74 (units (unknown) date) (0.52-1.04) mg/dL unknown) (unknown) (no (unknown) (unknown) : 1980 (units (unknown) date) Acct:[id number] unknown) (unknown) (no (unknown) (unknown) Date of Service: (units (unknown) date) 03/27/22 unknown) (unknown) (no (unknown) (unknown) Departure (units (unkn own) date) unknown) (unknown) (no (unknown) (unknown) Depression (units (unk nown) date) unknown) (unknown) (no (unknown) (unknown) Discharge Plan (units (unknown) date) unknown) (unknown) (no (unknown) (unknown) ED Orders (units (unkn own) date) unknown) (unknown) (no (unknown) (unknown) ER Physician: (units ( unknown) date) Yajaira Rose MD unknown) (unknown) (no (unknown) (unknown) Emergency Report (units (unknown) date) unknown) (unknown) (no (unknown) (unknown) Eos # (Auto) (units (u nknown) date) (0-450) /uL unknown) (unknown) (no (unknown) (unknown) Eos # (Auto) 200 (units (unknown) date) (0-450) /uL unknown) (unknown) (no (unknown) (unknown) Eos % (Auto) (2-4) (units (unknown) date) % unknown) (unknown) (no (unknown) (unknown) Eos % (Auto) 2.9 (units (unknown) date) (2-4) % unknown) (unknown) (no (unknown) (unknown) Estimated GFR > 60 (units (unknown) date) (>60) mL/min unknown) (unknown) (no (unknown) (unknown) Estimated GFR (units ( unknown) date) (>60) mL/min unknown) (unknown) (no (unknown) (unknown) Ethanol (ETOH) (units (unknown) date) Stat unknown) (unknown) (no (unknown) (unknown) Ethyl Alcohol ( - (units (unknown) date) 10) mg/dL unknown) (unknown) (no (unknown) (unknown) Ethyl Alcohol 124 (units (unknown) date) H ( - 10) mg/dL unknown) (unknown) (no (unknown) (unknown) Exam (units (unkno wn) date) unknown) (unknown) (no (unknown) (unknown) Family History (units (unknown) date) (Updated 10/02/21 @ unknown) 19:54 by Alysia Hernandez MD) (unknown) (no (unknown) (unknown) Free T4 (units (unkno wn) date) (0.78-2.19) ng/dL unknown) (unknown) (no (unknown) (unknown) Free T4 0.89 (units (u nknown) date) (0.78-2.19) ng/dL unknown) (unknown) (no (unknown) (unknown) Free T4, Direct (units (unknown) date) Thyroxine Stat unknown) (unknown) (no (unknown) (unknown) General (units (unkno wn) date) unknown) (unknown) (no (unknown) (unknown) Globulin (1.7-4.1) (units (unknown) date) g/dL unknown) (unknown) (no (unknown) (unknown) Globulin 3.3 (units (u nknown) date) (1.7-4.1) g/dL unknown) (unknown) (no (unknown) (unknown) Glucose (70-100) (units (unknown) date) mg/dL unknown) (unknown) (no (unknown) (unknown) Glucose 79 (units (unk nown) date) (70-100) mg/dL unknown) (unknown) (no (unknown) (unknown) HPI - Psych (units (un known) date) unknown) (unknown) (no (unknown) (unknown) Hct (36-46) % (units ( unknown) date) unknown) (unknown) (no (unknown) (unknown) Hct 39.1 (36-46) % (units (unknown) date) unknown) (unknown) (no (unknown) (unknown) Herpes (-2000) (units (unknown) date) unknown) (unknown) (no (unknown) (unknown) Hgb (12.0-16.0) (units (unknown) date) g/dL unknown) (unknown) (no (unknown) (unknown) Hgb 13.3 (units (unkno wn) date) (12.0-16.0) g/dL unknown) (unknown) (no (unknown) (unknown) Home Medications (units (unknown) date) unknown) (unknown) (no (unknown) (unknown) Hyperlipidemia (units (unknown) date) unknown) (unknown) (no (unknown) (unknown) Hypertension (units (u nknown) date) unknown) (unknown) (no (unknown) (unknown) Initial Vital (units ( unknown) date) Signs unknown) (unknown) (no (unknown) (unknown) Initial Vital (units ( unknown) date) Signs: unknown) (unknown) (no (unknown) (unknown) [facility] (units (unknown) date) [address] unknown) [place] [address] (unknown) (no (unknown) (unknown) Lab Data (units (unkno wn) date) unknown) (unknown) (no (unknown) (unknown) Lab Results (units (un known) date) unknown) (unknown) (no (unknown) (unknown) Label Comments: (units (unknown) date) unknown) (unknown) (no (unknown) (unknown) Labs: (units (unkno wn) date) unknown) (unknown) (no (unknown) (unknown) Lymph # (Auto) (units (unknown) date) (5299-1723) /uL unknown) (unknown) (no (unknown) (unknown) Lymph # (Auto) (units (unknown) date) 1500 (2789-3249) unknown) /uL (unknown) (no (unknown) (unknown) Lymph % (Auto) (units (unknown) date) (25-40) % unknown) (unknown) (no (unknown) (unknown) Lymph % (Auto) (units (unknown) date) 28.5 (25-40) % unknown) (unknown) (no (unknown) (unknown) [id number] (units (unk nown) date) unknown) (unknown) (no (unknown) (unknown) MCH (26-34) PG (units (unknown) date) unknown) (unknown) (no (unknown) (unknown) MCH 35.0 H (26-34) (units (unknown) date) PG unknown) (unknown) (no (unknown) (unknown) MCHC (30-36) % (units (unknown) date) unknown) (unknown) (no (unknown) (unknown) MCHC 34.0 (30-36) (units (unknown) date) % unknown) (unknown) (no (unknown) (unknown) MCV (80-100) fL (units (unknown) date) unknown) (unknown) (no (unknown) (unknown) MCV 103.0 H (units (un known) date) (80-100) fL unknown) (unknown) (no (unknown) (unknown) MDM - Psych (units (un known) date) unknown) (unknown) (no (unknown) (unknown) Medical History (units (unknown) date) (Updated 11/08/21 @ unknown) 00:01 by ) (unknown) (no (unknown) (unknown) Medication (units (unk nown) date) Instructions unknown) Recorded Confirmed (unknown) (no (unknown) (unknown) Medication (units (unk nown) date) Instructions unknown) Recorded (unknown) (no (unknown) (unknown) Mental health (units ( unknown) date) problem unknown) (unknown) (no (unknown) (unknown) Rubina Mullins PA-C (units (unknown) date) [Primary Care unknown) Provider] (unknown) (no (unknown) (unknown) Mode of arrival: (units (unknown) date) Ambulatory unknown) (unknown) (no (unknown) (unknown) [place] # (Auto) (units ( unknown) date) (0-900) /uL unknown) (unknown) (no (unknown) (unknown) [place] # (Auto) 500 (units (unknown) date) (0-900) /uL unknown) (unknown) (no (unknown) (unknown) [place] % (Auto) (units ( unknown) date) (3-14) % unknown) (unknown) (no (unknown) (unknown) [place] % (Auto) 9.7 (units (unknown) date) (3-14) % unknown) (unknown) (no (unknown) (unknown) Mother Diabetes (units (unknown) date) mellitus unknown) (unknown) (no (unknown) (unknown) Neut # (Auto) (units ( unknown) date) (4396-8435) /uL unknown) (unknown) (no (unknown) (unknown) Neut # (Auto) 3100 (units (unknown) date) (7950-8803) /uL unknown) (unknown) (no (unknown) (unknown) Neut % (Auto) (units ( unknown) date) (50-75) % unknown) (unknown) (no (unknown) (unknown) Neut % (Auto) 57.6 (units (unknown) date) (50-75) % unknown) (unknown) (no (unknown) (unknown) No Action (units (unkn own) date) unknown) (unknown) (no (unknown) (unknown) No Known Drug (units ( unknown) date) Allergies Allergy unknown) Verified 11/24/21 10:21 (unknown) (no (unknown) (unknown) No significant (units (unknown) date) medical problems unknown) (unknown) (no (unknown) (unknown) Ordered: (units (unkno wn) date) unknown) (unknown) (no (unknown) (unknown) Orders (units (unkno wn) date) unknown) (unknown) (no (unknown) (unknown) Oxygen Delivery (units (unknown) date) Method 03/27/22 unknown) 20:15 (unknown) (no (unknown) (unknown) Oxygen Delivery (units (unknown) date) Method Room Air unknown) (unknown) (no (unknown) (unknown) Oxygen Delivery (units (unknown) date) Method unknown) (unknown) (no (unknown) (unknown) PTSD (units (unkno wn) date) (post-traumatic unknown) stress disorder) (unknown) (no (unknown) (unknown) Patient History (units (unknown) date) unknown) (unknown) (no (unknown) (unknown) Patient: (units (unkno wn) date) HolcombLouisCate José Miguel unknown) MR#: (unknown) (no (unknown) (unknown) Pelvic pain (units (un known) date) unknown) (unknown) (no (unknown) (unknown) Plt Count (units (unkn own) date) (150-400) X103/uL unknown) (unknown) (no (unknown) (unknown) Plt Count 254 (units ( unknown) date) (150-400) X103/uL unknown) (unknown) (no (unknown) (unknown) Potassium (units (unkn own) date) (3.4-5.1) mmol/L unknown) (unknown) (no (unknown) (unknown) Potassium 3.9 (units ( unknown) date) (3.4-5.1) mmol/L unknown) (unknown) (no (unknown) (unknown) Prescriptions: (units (unknown) date) unknown) (unknown) (no (unknown) (unknown) Previous Rx's (units ( unknown) date) unknown) (unknown) (no (unknown) (unknown) Psoriasis (units (unkn own) date) unknown) (unknown) (no (unknown) (unknown) Pulse Oximetry 96 (units (unknown) date) 03/27/22 20:15 unknown) (unknown) (no (unknown) (unknown) Pulse Oximetry 96 (units (unknown) date) 97 unknown) (unknown) (no (unknown) (unknown) Pulse Oximetry 96 (units (unknown) date) 98 unknown) (unknown) (no (unknown) (unknown) Pulse Oximetry 96 (units (unknown) date) unknown) (unknown) (no (unknown) (unknown) Pulse Oximetry 98 (units (unknown) date) 96 96 unknown) (unknown) (no (unknown) (unknown) Pulse Oximetry 99 (units (unknown) date) 96 94 unknown) (unknown) (no (unknown) (unknown) Pulse Rate 64 (units ( unknown) date) 03/27/22 20:15 unknown) (unknown) (no (unknown) (unknown) Pulse Rate 64 (units ( unknown) date) unknown) (unknown) (no (unknown) (unknown) Pulse Rate 67 64 (units (unknown) date) 84 unknown) (unknown) (no (unknown) (unknown) Pulse Rate 68 68 (units (unknown) date) unknown) (unknown) (no (unknown) (unknown) Pulse Rate 70 68 (units (unknown) date) 67 unknown) (unknown) (no (unknown) (unknown) Pulse Rate 77 (units ( unknown) date) unknown) (unknown) (no (unknown) (unknown) RBC (4.0-5.2) (units ( unknown) date) X106/uL unknown) (unknown) (no (unknown) (unknown) RBC 3.80 L (units (unk nown) date) (4.0-5.2) X106/uL unknown) (unknown) (no (unknown) (unknown) RDW (11.6-14.8) % (units (unknown) date) unknown) (unknown) (no (unknown) (unknown) RDW 14.0 (units (unkno wn) date) (11.6-14.8) % unknown) (unknown) (no (unknown) (unknown) Referrals: (units (unk nown) date) unknown) (unknown) (no (unknown) (unknown) Related Data (units (u nknown) date) unknown) (unknown) (no (unknown) (unknown) Respiratory Rate (units (unknown) date) 18 03/27/22 20:15 unknown) (unknown) (no (unknown) (unknown) Respiratory Rate (units (unknown) date) 18 unknown) (unknown) (no (unknown) (unknown) Respiratory Rate (units (unknown) date) unknown) (unknown) (no (unknown) (unknown) Salicylate Stat (units (unknown) date) unknown) (unknown) (no (unknown) (unknown) Salicylates < 1.0 (units (unknown) date) (<20) mg/dL unknown) (unknown) (no (unknown) (unknown) Salicylates (<20) (units (unknown) date) mg/dL unknown) (unknown) (no (unknown) (unknown) Severe (units (unkno wn) date) dysmenorrhea unknown) (unknown) (no (unknown) (unknown) Signed By: (units (unk nown) date) unknown) (unknown) (no (unknown) (unknown) Smoking Status: (units (unknown) date) Former smoker unknown) (unknown) (no (unknown) (unknown) Social History (units (unknown) date) (Reviewed 02/18/20 unknown) @ 12:52 by EDDIE Castillo) (unknown) (no (unknown) (unknown) Sodium (137-145) (units (unknown) date) mmol/L unknown) (unknown) (no (unknown) (unknown) Sodium 140 (units (unk nown) date) (137-145) mmol/L unknown) (unknown) (no (unknown) (unknown) Source: patient (units (unknown) date) unknown) (unknown) (no (unknown) (unknown) Stated Complaint: (units (unknown) date) suicidal unknown) (unknown) (no (unknown) (unknown) Status post (units (un known) date) laparoscopic unknown) supracervical hysterectomy (10/27/21) (unknown) (no (unknown) (unknown) Substance Use (units ( unknown) date) Type: does not use unknown) (unknown) (no (unknown) (unknown) Surgical History (units (unknown) date) (Updated 11/25/21 @ unknown) 22:07 by Alysia Hernandez MD) (unknown) (no (unknown) (unknown) TAKE 1 TABLET BY (units (unknown) date) MOUTH EVERY EVENING unknown) (unknown) (no (unknown) (unknown) TSH (0.47-4.68) (units (unknown) date) uIU/mL unknown) (unknown) (no (unknown) (unknown) TSH 1.17 (units (unkno wn) date) (0.47-4.68) uIU/mL unknown) (unknown) (no (unknown) (unknown) Temperature 97.9 F (units (unknown) date) 03/27/22 20:15 unknown) (unknown) (no (unknown) (unknown) Temperature 97.9 F (units (unknown) date) unknown) (unknown) (no (unknown) (unknown) Temperature (units (un known) date) unknown) (unknown) (no (unknown) (unknown) Thyroid (units (unkno wn) date) Stimulating Hormone unknown) Stat (unknown) (no (unknown) (unknown) Time Seen by (units (u nknown) date) Provider: 03/27/22 unknown) 22:28 (unknown) (no (unknown) (unknown) Total Bilirubin (units (unknown) date) (0.2-1.3) mg/dL unknown) (unknown) (no (unknown) (unknown) Total Bilirubin (units (unknown) date) 0.4 (0.2-1.3) mg/dL unknown) (unknown) (no (unknown) (unknown) Total Protein (units ( unknown) date) (6.3-8.2) g/dL unknown) (unknown) (no (unknown) (unknown) Total Protein 7.3 (units (unknown) date) (6.3-8.2) g/dL unknown) (unknown) (no (unknown) (unknown) U Benzodiazepines (units (unknown) date) Scrn (Negative) unknown) (unknown) (no (unknown) (unknown) U Benzodiazepines (units (unknown) date) Scrn Positive H unknown) (Negative) (unknown) (no (unknown) (unknown) U Marijuana (THC) (units (unknown) date) Screen (Negative) unknown) (unknown) (no (unknown) (unknown) U Marijuana (THC) (units (unknown) date) Screen Negative unknown) (Negative) (unknown) (no (unknown) (unknown) U Methamphetamines (units (unknown) date) Scrn (Negative) unknown) (unknown) (no (unknown) (unknown) U Methamphetamines (units (unknown) date) Scrn Negative unknown) (Negative) (unknown) (no (unknown) (unknown) U Opiates 300ng/mL (units (unknown) date) cut (Negative) unknown) (unknown) (no (unknown) (unknown) U Opiates 300ng/mL (units (unknown) date) cut Negative unknown) (Negative) (unknown) (no (unknown) (unknown) U Tricyclic (units (un known) date) Antidepress unknown) (Negative) (unknown) (no (unknown) (unknown) U Tricyclic (units (un known) date) Antidepress unknown) Negative (Negative) (unknown) (no (unknown) (unknown) Ur Amphetamines (units (unknown) date) Screen (Negative) unknown) (unknown) (no (unknown) (unknown) Ur Amphetamines (units (unknown) date) Screen Negative unknown) (Negative) (unknown) (no (unknown) (unknown) Ur Barbiturates (units (unknown) date) Screen (Negative) unknown) (unknown) (no (unknown) (unknown) Ur Barbiturates (units (unknown) date) Screen Negative unknown) (Negative) (unknown) (no (unknown) (unknown) Ur Culture (units (unk nown) date) Indicated? Cult not unknown) indicated (unknown) (no (unknown) (unknown) Ur Culture (units (unk nown) date) Indicated? unknown) (unknown) (no (unknown) (unknown) Ur Leukocyte (units (u nknown) date) Esterase (NEGATIVE) unknown) (unknown) (no (unknown) (unknown) Ur Leukocyte (units (u nknown) date) Esterase Negative unknown) (NEGATIVE) (unknown) (no (unknown) (unknown) Ur MDMA Scrn (units (u nknown) date) (Ecstasy) unknown) (Negative) (unknown) (no (unknown) (unknown) Ur MDMA Scrn (units (u nknown) date) (Ecstasy) Negative unknown) (Negative) (unknown) (no (unknown) (unknown) Ur Oxycodone (units (u nknown) date) Screen (Negative) unknown) (unknown) (no (unknown) (unknown) Ur Oxycodone (units (u nknown) date) Screen Negative unknown) (Negative) (unknown) (no (unknown) (unknown) Ur Phencyclidine (units (unknown) date) Scrn (Negative) unknown) (unknown) (no (unknown) (unknown) Ur Phencyclidine (units (unknown) date) Scrn Negative unknown) (Negative) (unknown) (no (unknown) (unknown) Ur Specific (units (un known) date) [place] <=1.005 unknown) (1.000-1.035) (unknown) (no (unknown) (unknown) Ur Specific (units (un known) date) [place] unknown) (1.000-1.035) (unknown) (no (unknown) (unknown) Ur Squamous Epith (units (unknown) date) Cells (0-5/HPF) unknown) (unknown) (no (unknown) (unknown) Ur Squamous Epith (units (unknown) date) Cells None seen unknown) (0-5/HPF) (unknown) (no (unknown) (unknown) Urinalysis and (units (unknown) date) Microscopic Stat unknown) (unknown) (no (unknown) (unknown) Urine Appearance (units (unknown) date) Clear unknown) (unknown) (no (unknown) (unknown) Urine Appearance (units (unknown) date) unknown) (unknown) (no (unknown) (unknown) Urine Bacteria (units (unknown) date) (None) unknown) (unknown) (no (unknown) (unknown) Urine Bacteria (units (unknown) date) Occasional (0-1) unknown) (None) (unknown) (no (unknown) (unknown) Urine Bilirubin (units (unknown) date) (NEGATIVE) unknown) (unknown) (no (unknown) (unknown) Urine Bilirubin (units (unknown) date) Negative (NEGATIVE) unknown) (unknown) (no (unknown) (unknown) Urine Cocaine (units ( unknown) date) Screen (Negative) unknown) (unknown) (no (unknown) (unknown) Urine Cocaine (units ( unknown) date) Screen Negative unknown) (Negative) (unknown) (no (unknown) (unknown) Urine Color Lt. (units (unknown) date) yellow unknown) (unknown) (no (unknown) (unknown) Urine Color (units (un known) date) unknown) (unknown) (no (unknown) (unknown) Urine Drug Screen, (units (unknown) date) Rapid Stat unknown) (unknown) (no (unknown) (unknown) Urine Glucose (UA) (units (unknown) date) (Negative) g/dL unknown) (unknown) (no (unknown) (unknown) Urine Glucose (UA) (units (unknown) date) Negative (Negative) unknown) g/dL (unknown) (no (unknown) (unknown) Urine Ketones (units ( unknown) date) (NEGATIVE) unknown) (unknown) (no (unknown) (unknown) Urine Ketones (units ( unknown) date) Negative (NEGATIVE) unknown) (unknown) (no (unknown) (unknown) Urine Methadone (units (unknown) date) Screen (Negative) unknown) (unknown) (no (unknown) (unknown) Urine Methadone (units (unknown) date) Screen Negative unknown) (Negative) (unknown) (no (unknown) (unknown) Urine Nitrate (units ( unknown) date) (Negative) unknown) (unknown) (no (unknown) (unknown) Urine Nitrate (units ( unknown) date) Negative (Negative) unknown) (unknown) (no (unknown) (unknown) Urine Occult Blood (units (unknown) date) (Negative) unknown) (unknown) (no (unknown) (unknown) Urine Occult Blood (units (unknown) date) Negative (Negative) unknown) (unknown) (no (unknown) (unknown) Urine Protein (units ( unknown) date) (Negative) unknown) (unknown) (no (unknown) (unknown) Urine Protein (units ( unknown) date) Negative (Negative) unknown) (unknown) (no (unknown) (unknown) Urine RBC (units (unkn own) date) (0-5/HPF) unknown) (unknown) (no (unknown) (unknown) Urine RBC None (units (unknown) date) seen (0-5/HPF) unknown) (unknown) (no (unknown) (unknown) Urine Urobilinogen (units (unknown) date) (0.2) E.U./dL unknown) (unknown) (no (unknown) (unknown) Urine Urobilinogen (units (unknown) date) 0.2 (0.2) E.U./dL unknown) (unknown) (no (unknown) (unknown) Urine WBC (units (unkn own) date) (0-5/HPF) unknown) (unknown) (no (unknown) (unknown) Urine WBC 0-1/hpf (units (unknown) date) (0-5/HPF) unknown) (unknown) (no (unknown) (unknown) Urine pH (4.5-8.0) (units (unknown) date) unknown) (unknown) (no (unknown) (unknown) Urine pH 6.0 (units (u nknown) date) (4.5-8.0) unknown) (unknown) (no (unknown) (unknown) Vital Signs - 8 hr (units (unknown) date) unknown) (unknown) (no (unknown) (unknown) Vital Signs (units (un known) date) unknown) (unknown) (no (unknown) (unknown) Vital signs: (units (u nknown) date) unknown) (unknown) (no (unknown) (unknown) WBC (4.5-11.0) (units (unknown) date) X103/uL unknown) (unknown) (no (unknown) (unknown) WBC 5.3 (4.5-11.0) (units (unknown) date) X103/uL unknown) (unknown) (no (unknown) (unknown) [Embedded Image (units (unknown) date) Not Available] unknown) (unknown) (no (unknown) (unknown) alcohol intake (units (unknown) date) frequency: 3 or unknown) more drinks per day (unknown) (no (unknown) (unknown) alcohol intake: (units (unknown) date) current unknown) (unknown) (no (unknown) (unknown) fluconazole 150 mg (units (unknown) date) tablet 150 mg PO unknown) DAILY #1 tab 11/03/21 (unknown) (no (unknown) (unknown) fluconazole (units (un known) date) [Diflucan] 150 mg unknown) tablet (unknown) (no (unknown) (unknown) fluvoxamine 50 mg (units (unknown) date) tablet 50 mg DAILY unknown) 10/24/21 11/24/21 (unknown) (no (unknown) (unknown) fluvoxamine 50 mg (units (unknown) date) tablet unknown) (unknown) (no (unknown) (unknown) household members: (units (unknown) date) spouse and children unknown) (unknown) (no (unknown) (unknown) hydroxyzine HCl 25 (units (unknown) date) mg tablet 25 mg PO unknown) BEDTIME PRN sleep #7 tabs 10/24/21 (unknown) (no (unknown) (unknown) hydroxyzine HCl 25 (units (unknown) date) mg tablet unknown) (unknown) (no (unknown) (unknown) losartan 50 mg (units (unknown) date) tablet 50 mg PO unknown) DAILY 10/17/21 11/24/21 (unknown) (no (unknown) (unknown) losartan 50 mg (units (unknown) date) tablet unknown) Result panel 111 (unknown) (no date) (unknown) (unknown) < 10 mg/dl (unkn own) (unknown) (no date) (unknown) (unknown) < 10 mg/dl (unkn own) Result panel 112 (unknown) (no (unknown) (unknown) (no value) (units (unk nown) date) unknown) (unknown) (no (unknown) (unknown) (Diflucan) (units (unk nown) date) unknown) (unknown) (no (unknown) (unknown) 00:00 03/28/22 (units (unknown) date) unknown) (unknown) (no (unknown) (unknown) 00:30 (units (unkno wn) date) unknown) (unknown) (no (unknown) (unknown) 03/27/22 03/27/22 (units (unknown) date) 03/27/22 unknown) Range/Units (unknown) (no (unknown) (unknown) 03/27/22 03/27/22 (units (unknown) date) 03/28/22 unknown) Range/Units (unknown) (no (unknown) (unknown) 03/27/22 20:23 (units (unknown) date) unknown) (unknown) (no (unknown) (unknown) 03/27/22 20:30 (units (unknown) date) unknown) (unknown) (no (unknown) (unknown) 03/27/22 21:19 (units (unknown) date) unknown) (unknown) (no (unknown) (unknown) 03/27/22 21:44 (units (unknown) date) unknown) (unknown) (no (unknown) (unknown) 03/27/22 (units (unkno wn) date) unknown) (unknown) (no (unknown) (unknown) 03/28/22 01:49 (units (unknown) date) unknown) (unknown) (no (unknown) (unknown) 150 mg PO DAILY (units (unknown) date) Qty: 1 1RF unknown) (unknown) (no (unknown) (unknown) 20:15 03/27/22 (units (unknown) date) unknown) (unknown) (no (unknown) (unknown) 20:23 20:30 21:19 (units (unknown) date) unknown) (unknown) (no (unknown) (unknown) 21:08 03/27/22 (units (unknown) date) unknown) (unknown) (no (unknown) (unknown) 21:08 (units (unkno wn) date) unknown) (unknown) (no (unknown) (unknown) 21:19 21:19 02:09 (units (unknown) date) unknown) (unknown) (no (unknown) (unknown) 21:20 03/27/22 (units (unknown) date) unknown) (unknown) (no (unknown) (unknown) 21:30 03/27/22 (units (unknown) date) unknown) (unknown) (no (unknown) (unknown) 21:30 (units (unkno wn) date) unknown) (unknown) (no (unknown) (unknown) 22:00 03/27/22 (units (unknown) date) unknown) (unknown) (no (unknown) (unknown) 22:30 (units (unkno wn) date) unknown) (unknown) (no (unknown) (unknown) 23:00 03/27/22 (units (unknown) date) unknown) (unknown) (no (unknown) (unknown) 23:30 03/27/22 (units (unknown) date) unknown) (unknown) (no (unknown) (unknown) 23:56 03/28/22 (units (unknown) date) unknown) (unknown) (no (unknown) (unknown) 23:56 (units (unkno wn) date) unknown) (unknown) (no (unknown) (unknown) 25 mg PO BEDTIME (units (unknown) date) PRN (Reason: sleep) unknown) Qty: 7 0RF (unknown) (no (unknown) (unknown) 50 mg DAILY (units (un known) date) unknown) (unknown) (no (unknown) (unknown) 50 mg PO DAILY (units (unknown) date) unknown) (unknown) (no (unknown) (unknown) ALT (<35) IU/L (units (unknown) date) unknown) (unknown) (no (unknown) (unknown) ALT 28 (<35) IU/L (units (unknown) date) unknown) (unknown) (no (unknown) (unknown) AST (14-36) IU/L (units (unknown) date) unknown) (unknown) (no (unknown) (unknown) AST 38 H (14-36) (units (unknown) date) IU/L unknown) (unknown) (no (unknown) (unknown) Abnormal uterine (units (unknown) date) bleeding (AUB) unknown) (unknown) (no (unknown) (unknown) Acetaminophen < 10 (units (unknown) date) (10-30) ug/mL unknown) (unknown) (no (unknown) (unknown) Acetaminophen (units ( unknown) date) (10-30) ug/mL unknown) (unknown) (no (unknown) (unknown) Acetaminophen Stat (units (unknown) date) unknown) (unknown) (no (unknown) (unknown) Age/Sex: 41 / F (units (unknown) date) unknown) (unknown) (no (unknown) (unknown) Albumin (3.5-5.0) (units (unknown) date) g/dL unknown) (unknown) (no (unknown) (unknown) Albumin 4.0 (units (un known) date) (3.5-5.0) g/dL unknown) (unknown) (no (unknown) (unknown) Albumin/Globulin (units (unknown) date) Ratio (1.0-2.8) unknown) (unknown) (no (unknown) (unknown) Albumin/Globulin (units (unknown) date) Ratio 1.2 (1.0-2.8) unknown) (unknown) (no (unknown) (unknown) Alkaline (units (unkno wn) date) Phosphatase unknown) (38-126) U/L (unknown) (no (unknown) (unknown) Alkaline (units (unkno wn) date) Phosphatase 52 unknown) (38-126) U/L (unknown) (no (unknown) (unknown) Allergies (units (unkn own) date) unknown) (unknown) (no (unknown) (unknown) Allergy/AdvReac (units (unknown) date) Type Severity unknown) Reaction Status Date / Time (unknown) (no (unknown) (unknown) Anesthesia (units (unk nown) date) unknown) (unknown) (no (unknown) (unknown) BUN (7-17) mg/dL (units (unknown) date) unknown) (unknown) (no (unknown) (unknown) BUN 15 (7-17) (units ( unknown) date) mg/dL unknown) (unknown) (no (unknown) (unknown) BUN/Creatinine (units (unknown) date) Ratio (6-22) unknown) (unknown) (no (unknown) (unknown) BUN/Creatinine (units (unknown) date) Ratio 20.3 (6-22) unknown) (unknown) (no (unknown) (unknown) Baso # (Auto) (units ( unknown) date) (0-100) /uL unknown) (unknown) (no (unknown) (unknown) Baso # (Auto) 100 (units (unknown) date) (0-100) /uL unknown) (unknown) (no (unknown) (unknown) Baso % (Auto) (units ( unknown) date) (0-2) % unknown) (unknown) (no (unknown) (unknown) Baso % (Auto) 1.3 (units (unknown) date) (0-2) % unknown) (unknown) (no (unknown) (unknown) Blood Pressure (units (unknown) date) 102/60 unknown) (unknown) (no (unknown) (unknown) Blood Pressure (units (unknown) date) 110/65 98/61 unknown) (unknown) (no (unknown) (unknown) Blood Pressure (units (unknown) date) 99/55 L 03/27/22 unknown) 20:15 (unknown) (no (unknown) (unknown) Blood Pressure (units (unknown) date) 99/55 L 89/55 L unknown) (unknown) (no (unknown) (unknown) Blood Pressure (units (unknown) date) unknown) (unknown) (no (unknown) (unknown) Breast cancer (units ( unknown) date) unknown) (unknown) (no (unknown) (unknown) Breast cyst (units (un known) date) (-1998) unknown) (unknown) (no (unknown) (unknown) Calcium (8.4-10.2) (units (unknown) date) mg/dL unknown) (unknown) (no (unknown) (unknown) Calcium 8.7 (units (un known) date) (8.4-10.2) mg/dL unknown) (unknown) (no (unknown) (unknown) Carbon Dioxide (units (unknown) date) (22-32) mmol/L unknown) (unknown) (no (unknown) (unknown) Carbon Dioxide 21 (units (unknown) date) L (22-32) mmol/L unknown) (unknown) (no (unknown) (unknown) Chief Complaint: (units (unknown) date) Psychiatric unknown) Symptoms (unknown) (no (unknown) (unknown) Chloride (98-107) (units (unknown) date) mmol/L unknown) (unknown) (no (unknown) (unknown) Chloride 106 (units (u nknown) date) (98-107) mmol/L unknown) (unknown) (no (unknown) (unknown) Complete Blood (units (unknown) date) Count AUTO DIFF unknown) Stat (unknown) (no (unknown) (unknown) Comprehensive (units ( unknown) date) Metabolic Panel unknown) Stat (unknown) (no (unknown) (unknown) 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 - (units (unknown) date) Welding Inspector unknown) Stat (unknown) (no (unknown) (unknown) Course (units (unkno wn) date) unknown) (unknown) (no (unknown) (unknown) Creatinine (units (unk nown) date) (0.52-1.04) mg/dL unknown) (unknown) (no (unknown) (unknown) Creatinine 0.74 (units (unknown) date) (0.52-1.04) mg/dL unknown) (unknown) (no (unknown) (unknown) : 1980 (units (unknown) date) Acct:[id number] unknown) (unknown) (no (unknown) (unknown) Date of Service: (units (unknown) date) 03/27/22 unknown) (unknown) (no (unknown) (unknown) Departure (units (unkn own) date) unknown) (unknown) (no (unknown) (unknown) Depression (units (unk nown) date) unknown) (unknown) (no (unknown) (unknown) Discharge Plan (units (unknown) date) unknown) (unknown) (no (unknown) (unknown) ED Orders (units (unkn own) date) unknown) (unknown) (no (unknown) (unknown) ER Physician: (units ( unknown) date) Yajaira Rose MD unknown) (unknown) (no (unknown) (unknown) ETOH [Ethanol (units ( unknown) date) (ETOH)] Stat unknown) (unknown) (no (unknown) (unknown) Emergency Report (units (unknown) date) unknown) (unknown) (no (unknown) (unknown) Eos # (Auto) (units (u nknown) date) (0-450) /uL unknown) (unknown) (no (unknown) (unknown) Eos # (Auto) 200 (units (unknown) date) (0-450) /uL unknown) (unknown) (no (unknown) (unknown) Eos % (Auto) (2-4) (units (unknown) date) % unknown) (unknown) (no (unknown) (unknown) Eos % (Auto) 2.9 (units (unknown) date) (2-4) % unknown) (unknown) (no (unknown) (unknown) Estimated GFR > 60 (units (unknown) date) (>60) mL/min unknown) (unknown) (no (unknown) (unknown) Estimated GFR (units ( unknown) date) (>60) mL/min unknown) (unknown) (no (unknown) (unknown) Ethanol (ETOH) (units (unknown) date) Stat unknown) (unknown) (no (unknown) (unknown) Ethyl Alcohol ( - (units (unknown) date) 10) mg/dL unknown) (unknown) (no (unknown) (unknown) Ethyl Alcohol 124 (units (unknown) date) H < 10 ( - 10) unknown) mg/dL (unknown) (no (unknown) (unknown) Exam (units (unkno wn) date) unknown) (unknown) (no (unknown) (unknown) Family History (units (unknown) date) (Updated 10/02/21 @ unknown) 19:54 by Alysia Hernandez MD) (unknown) (no (unknown) (unknown) Free T4 (units (unkno wn) date) (0.78-2.19) ng/dL unknown) (unknown) (no (unknown) (unknown) Free T4 0.89 (units (u nknown) date) (0.78-2.19) ng/dL unknown) (unknown) (no (unknown) (unknown) Free T4, Direct (units (unknown) date) Thyroxine Stat unknown) (unknown) (no (unknown) (unknown) General (units (unkno wn) date) unknown) (unknown) (no (unknown) (unknown) Globulin (1.7-4.1) (units (unknown) date) g/dL unknown) (unknown) (no (unknown) (unknown) Globulin 3.3 (units (u nknown) date) (1.7-4.1) g/dL unknown) (unknown) (no (unknown) (unknown) Glucose (70-100) (units (unknown) date) mg/dL unknown) (unknown) (no (unknown) (unknown) Glucose 79 (units (unk nown) date) (70-100) mg/dL unknown) (unknown) (no (unknown) (unknown) HPI - Psych (units (un known) date) unknown) (unknown) (no (unknown) (unknown) Hct (36-46) % (units ( unknown) date) unknown) (unknown) (no (unknown) (unknown) Hct 39.1 (36-46) % (units (unknown) date) unknown) (unknown) (no (unknown) (unknown) Herpes (-2000) (units (unknown) date) unknown) (unknown) (no (unknown) (unknown) Hgb (12.0-16.0) (units (unknown) date) g/dL unknown) (unknown) (no (unknown) (unknown) Hgb 13.3 (units (unkno wn) date) (12.0-16.0) g/dL unknown) (unknown) (no (unknown) (unknown) Home Medications (units (unknown) date) unknown) (unknown) (no (unknown) (unknown) Hyperlipidemia (units (unknown) date) unknown) (unknown) (no (unknown) (unknown) Hypertension (units (u nknown) date) unknown) (unknown) (no (unknown) (unknown) Initial Vital (units ( unknown) date) Signs unknown) (unknown) (no (unknown) (unknown) Initial Vital (units ( unknown) date) Signs: unknown) (unknown) (no (unknown) (unknown) [facility] (units (unknown) date) [address] unknown) [place] [address] (unknown) (no (unknown) (unknown) Lab Data (units (unkno wn) date) unknown) (unknown) (no (unknown) (unknown) Lab Results (units (un known) date) unknown) (unknown) (no (unknown) (unknown) Label Comments: (units (unknown) date) unknown) (unknown) (no (unknown) (unknown) Labs: (units (unkno wn) date) unknown) (unknown) (no (unknown) (unknown) Lymph # (Auto) (units (unknown) date) (9577-2194) /uL unknown) (unknown) (no (unknown) (unknown) Lymph # (Auto) (units (unknown) date) 1500 (1522-9808) unknown) /uL (unknown) (no (unknown) (unknown) Lymph % (Auto) (units (unknown) date) (25-40) % unknown) (unknown) (no (unknown) (unknown) Lymph % (Auto) (units (unknown) date) 28.5 (25-40) % unknown) (unknown) (no (unknown) (unknown) [id number] (units (unk nown) date) unknown) (unknown) (no (unknown) (unknown) MCH (26-34) PG (units (unknown) date) unknown) (unknown) (no (unknown) (unknown) MCH 35.0 H (26-34) (units (unknown) date) PG unknown) (unknown) (no (unknown) (unknown) MCHC (30-36) % (units (unknown) date) unknown) (unknown) (no (unknown) (unknown) MCHC 34.0 (30-36) (units (unknown) date) % unknown) (unknown) (no (unknown) (unknown) MCV (80-100) fL (units (unknown) date) unknown) (unknown) (no (unknown) (unknown) MCV 103.0 H (units (un known) date) (80-100) fL unknown) (unknown) (no (unknown) (unknown) MDM - Psych (units (un known) date) unknown) (unknown) (no (unknown) (unknown) Medical History (units (unknown) date) (Updated 11/08/21 @ unknown) 00:01 by ) (unknown) (no (unknown) (unknown) Medication (units (unk nown) date) Instructions unknown) Recorded Confirmed (unknown) (no (unknown) (unknown) Medication (units (unk nown) date) Instructions unknown) Recorded (unknown) (no (unknown) (unknown) Mental health (units ( unknown) date) problem unknown) (unknown) (no (unknown) (unknown) Rubina Mullins PA-C (units (unknown) date) [Primary Care unknown) Provider] (unknown) (no (unknown) (unknown) Mode of arrival: (units (unknown) date) Ambulatory unknown) (unknown) (no (unknown) (unknown) [place] # (Auto) (units ( unknown) date) (0-900) /uL unknown) (unknown) (no (unknown) (unknown) [place] # (Auto) 500 (units (unknown) date) (0-900) /uL unknown) (unknown) (no (unknown) (unknown) [place] % (Auto) (units ( unknown) date) (3-14) % unknown) (unknown) (no (unknown) (unknown) [place] % (Auto) 9.7 (units (unknown) date) (3-14) % unknown) (unknown) (no (unknown) (unknown) Mother Diabetes (units (unknown) date) mellitus unknown) (unknown) (no (unknown) (unknown) Neut # (Auto) (units ( unknown) date) (4875-7436) /uL unknown) (unknown) (no (unknown) (unknown) Neut # (Auto) 3100 (units (unknown) date) (9006-6809) /uL unknown) (unknown) (no (unknown) (unknown) Neut % (Auto) (units ( unknown) date) (50-75) % unknown) (unknown) (no (unknown) (unknown) Neut % (Auto) 57.6 (units (unknown) date) (50-75) % unknown) (unknown) (no (unknown) (unknown) No Action (units (unkn own) date) unknown) (unknown) (no (unknown) (unknown) No Known Drug (units ( unknown) date) Allergies Allergy unknown) Verified 11/24/21 10:21 (unknown) (no (unknown) (unknown) No significant (units (unknown) date) medical problems unknown) (unknown) (no (unknown) (unknown) Ordered: (units (unkno wn) date) unknown) (unknown) (no (unknown) (unknown) Orders (units (unkno wn) date) unknown) (unknown) (no (unknown) (unknown) Oxygen Delivery (units (unknown) date) Method 03/27/22 unknown) 20:15 (unknown) (no (unknown) (unknown) Oxygen Delivery (units (unknown) date) Method Room Air unknown) (unknown) (no (unknown) (unknown) Oxygen Delivery (units (unknown) date) Method unknown) (unknown) (no (unknown) (unknown) PTSD (units (unkno wn) date) (post-traumatic unknown) stress disorder) (unknown) (no (unknown) (unknown) Patient History (units (unknown) date) unknown) (unknown) (no (unknown) (unknown) Patient: (units (unkno wn) date) Cate Holcomb unknown) MR#: (unknown) (no (unknown) (unknown) Pelvic pain (units (un known) date) unknown) (unknown) (no (unknown) (unknown) Plt Count (units (unkn own) date) (150-400) X103/uL unknown) (unknown) (no (unknown) (unknown) Plt Count 254 (units ( unknown) date) (150-400) X103/uL unknown) (unknown) (no (unknown) (unknown) Potassium (units (unkn own) date) (3.4-5.1) mmol/L unknown) (unknown) (no (unknown) (unknown) Potassium 3.9 (units ( unknown) date) (3.4-5.1) mmol/L unknown) (unknown) (no (unknown) (unknown) Prescriptions: (units (unknown) date) unknown) (unknown) (no (unknown) (unknown) Previous Rx's (units ( unknown) date) unknown) (unknown) (no (unknown) (unknown) Psoriasis (units (unkn own) date) unknown) (unknown) (no (unknown) (unknown) Pulse Oximetry 96 (units (unknown) date) 03/27/22 20:15 unknown) (unknown) (no (unknown) (unknown) Pulse Oximetry 96 (units (unknown) date) 97 unknown) (unknown) (no (unknown) (unknown) Pulse Oximetry 96 (units (unknown) date) 98 unknown) (unknown) (no (unknown) (unknown) Pulse Oximetry 96 (units (unknown) date) unknown) (unknown) (no (unknown) (unknown) Pulse Oximetry 98 (units (unknown) date) 96 96 unknown) (unknown) (no (unknown) (unknown) Pulse Oximetry 99 (units (unknown) date) 96 94 unknown) (unknown) (no (unknown) (unknown) Pulse Rate 64 (units ( unknown) date) 03/27/22 20:15 unknown) (unknown) (no (unknown) (unknown) Pulse Rate 64 (units ( unknown) date) unknown) (unknown) (no (unknown) (unknown) Pulse Rate 67 64 (units (unknown) date) 84 unknown) (unknown) (no (unknown) (unknown) Pulse Rate 68 68 (units (unknown) date) unknown) (unknown) (no (unknown) (unknown) Pulse Rate 70 68 (units (unknown) date) 67 unknown) (unknown) (no (unknown) (unknown) Pulse Rate 77 (units ( unknown) date) unknown) (unknown) (no (unknown) (unknown) RBC (4.0-5.2) (units ( unknown) date) X106/uL unknown) (unknown) (no (unknown) (unknown) RBC 3.80 L (units (unk nown) date) (4.0-5.2) X106/uL unknown) (unknown) (no (unknown) (unknown) RDW (11.6-14.8) % (units (unknown) date) unknown) (unknown) (no (unknown) (unknown) RDW 14.0 (units (unkno wn) date) (11.6-14.8) % unknown) (unknown) (no (unknown) (unknown) Referrals: (units (unk nown) date) unknown) (unknown) (no (unknown) (unknown) Related Data (units (u nknown) date) unknown) (unknown) (no (unknown) (unknown) Respiratory Rate (units (unknown) date) 18 03/27/22 20:15 unknown) (unknown) (no (unknown) (unknown) Respiratory Rate (units (unknown) date) 18 unknown) (unknown) (no (unknown) (unknown) Respiratory Rate (units (unknown) date) unknown) (unknown) (no (unknown) (unknown) Salicylate Stat (units (unknown) date) unknown) (unknown) (no (unknown) (unknown) Salicylates < 1.0 (units (unknown) date) (<20) mg/dL unknown) (unknown) (no (unknown) (unknown) Salicylates (<20) (units (unknown) date) mg/dL unknown) (unknown) (no (unknown) (unknown) Severe (units (unkno wn) date) dysmenorrhea unknown) (unknown) (no (unknown) (unknown) Signed By: (units (unk nown) date) unknown) (unknown) (no (unknown) (unknown) Smoking Status: (units (unknown) date) Former smoker unknown) (unknown) (no (unknown) (unknown) Social History (units (unknown) date) (Reviewed 02/18/20 unknown) @ 12:52 by EDDIE Castillo) (unknown) (no (unknown) (unknown) Sodium (137-145) (units (unknown) date) mmol/L unknown) (unknown) (no (unknown) (unknown) Sodium 140 (units (unk nown) date) (137-145) mmol/L unknown) (unknown) (no (unknown) (unknown) Source: patient (units (unknown) date) unknown) (unknown) (no (unknown) (unknown) Stated Complaint: (units (unknown) date) suicidal unknown) (unknown) (no (unknown) (unknown) Status post (units (un known) date) laparoscopic unknown) supracervical hysterectomy (10/27/21) (unknown) (no (unknown) (unknown) Substance Use (units ( unknown) date) Type: does not use unknown) (unknown) (no (unknown) (unknown) Surgical History (units (unknown) date) (Updated 11/25/21 @ unknown) 22:07 by Alysia Hernandez MD) (unknown) (no (unknown) (unknown) TAKE 1 TABLET BY (units (unknown) date) MOUTH EVERY EVENING unknown) (unknown) (no (unknown) (unknown) TSH (0.47-4.68) (units (unknown) date) uIU/mL unknown) (unknown) (no (unknown) (unknown) TSH 1.17 (units (unkno wn) date) (0.47-4.68) uIU/mL unknown) (unknown) (no (unknown) (unknown) Temperature 97.9 F (units (unknown) date) 03/27/22 20:15 unknown) (unknown) (no (unknown) (unknown) Temperature 97.9 F (units (unknown) date) unknown) (unknown) (no (unknown) (unknown) Temperature (units (un known) date) unknown) (unknown) (no (unknown) (unknown) Thyroid (units (unkno wn) date) Stimulating Hormone unknown) Stat (unknown) (no (unknown) (unknown) Time Seen by (units (u nknown) date) Provider: 03/27/22 unknown) 22:28 (unknown) (no (unknown) (unknown) Total Bilirubin (units (unknown) date) (0.2-1.3) mg/dL unknown) (unknown) (no (unknown) (unknown) Total Bilirubin (units (unknown) date) 0.4 (0.2-1.3) mg/dL unknown) (unknown) (no (unknown) (unknown) Total Protein (units ( unknown) date) (6.3-8.2) g/dL unknown) (unknown) (no (unknown) (unknown) Total Protein 7.3 (units (unknown) date) (6.3-8.2) g/dL unknown) (unknown) (no (unknown) (unknown) U Benzodiazepines (units (unknown) date) Scrn (Negative) unknown) (unknown) (no (unknown) (unknown) U Benzodiazepines (units (unknown) date) Scrn Positive H unknown) (Negative) (unknown) (no (unknown) (unknown) U Marijuana (THC) (units (unknown) date) Screen (Negative) unknown) (unknown) (no (unknown) (unknown) U Marijuana (THC) (units (unknown) date) Screen Negative unknown) (Negative) (unknown) (no (unknown) (unknown) U Methamphetamines (units (unknown) date) Scrn (Negative) unknown) (unknown) (no (unknown) (unknown) U Methamphetamines (units (unknown) date) Scrn Negative unknown) (Negative) (unknown) (no (unknown) (unknown) U Opiates 300ng/mL (units (unknown) date) cut (Negative) unknown) (unknown) (no (unknown) (unknown) U Opiates 300ng/mL (units (unknown) date) cut Negative unknown) (Negative) (unknown) (no (unknown) (unknown) U Tricyclic (units (un known) date) Antidepress unknown) (Negative) (unknown) (no (unknown) (unknown) U Tricyclic (units (un known) date) Antidepress unknown) Negative (Negative) (unknown) (no (unknown) (unknown) Ur Amphetamines (units (unknown) date) Screen (Negative) unknown) (unknown) (no (unknown) (unknown) Ur Amphetamines (units (unknown) date) Screen Negative unknown) (Negative) (unknown) (no (unknown) (unknown) Ur Barbiturates (units (unknown) date) Screen (Negative) unknown) (unknown) (no (unknown) (unknown) Ur Barbiturates (units (unknown) date) Screen Negative unknown) (Negative) (unknown) (no (unknown) (unknown) Ur Culture (units (unk nown) date) Indicated? Cult not unknown) indicated (unknown) (no (unknown) (unknown) Ur Culture (units (unk nown) date) Indicated? unknown) (unknown) (no (unknown) (unknown) Ur Leukocyte (units (u nknown) date) Esterase (NEGATIVE) unknown) (unknown) (no (unknown) (unknown) Ur Leukocyte (units (u nknown) date) Esterase Negative unknown) (NEGATIVE) (unknown) (no (unknown) (unknown) Ur MDMA Scrn (units (u nknown) date) (Ecstasy) unknown) (Negative) (unknown) (no (unknown) (unknown) Ur MDMA Scrn (units (u nknown) date) (Ecstasy) Negative unknown) (Negative) (unknown) (no (unknown) (unknown) Ur Oxycodone (units (u nknown) date) Screen (Negative) unknown) (unknown) (no (unknown) (unknown) Ur Oxycodone (units (u nknown) date) Screen Negative unknown) (Negative) (unknown) (no (unknown) (unknown) Ur Phencyclidine (units (unknown) date) Scrn (Negative) unknown) (unknown) (no (unknown) (unknown) Ur Phencyclidine (units (unknown) date) Scrn Negative unknown) (Negative) (unknown) (no (unknown) (unknown) Ur Specific (units (un known) date) [place] <=1.005 unknown) (1.000-1.035) (unknown) (no (unknown) (unknown) Ur Specific (units (un known) date) [place] unknown) (1.000-1.035) (unknown) (no (unknown) (unknown) Ur Squamous Epith (units (unknown) date) Cells (0-5/HPF) unknown) (unknown) (no (unknown) (unknown) Ur Squamous Epith (units (unknown) date) Cells None seen unknown) (0-5/HPF) (unknown) (no (unknown) (unknown) Urinalysis and (units (unknown) date) Microscopic Stat unknown) (unknown) (no (unknown) (unknown) Urine Appearance (units (unknown) date) Clear unknown) (unknown) (no (unknown) (unknown) Urine Appearance (units (unknown) date) unknown) (unknown) (no (unknown) (unknown) Urine Bacteria (units (unknown) date) (None) unknown) (unknown) (no (unknown) (unknown) Urine Bacteria (units (unknown) date) Occasional (0-1) unknown) (None) (unknown) (no (unknown) (unknown) Urine Bilirubin (units (unknown) date) (NEGATIVE) unknown) (unknown) (no (unknown) (unknown) Urine Bilirubin (units (unknown) date) Negative (NEGATIVE) unknown) (unknown) (no (unknown) (unknown) Urine Cocaine (units ( unknown) date) Screen (Negative) unknown) (unknown) (no (unknown) (unknown) Urine Cocaine (units ( unknown) date) Screen Negative unknown) (Negative) (unknown) (no (unknown) (unknown) Urine Color Lt. (units (unknown) date) yellow unknown) (unknown) (no (unknown) (unknown) Urine Color (units (un known) date) unknown) (unknown) (no (unknown) (unknown) Urine Drug Screen, (units (unknown) date) Rapid Stat unknown) (unknown) (no (unknown) (unknown) Urine Glucose (UA) (units (unknown) date) (Negative) g/dL unknown) (unknown) (no (unknown) (unknown) Urine Glucose (UA) (units (unknown) date) Negative (Negative) unknown) g/dL (unknown) (no (unknown) (unknown) Urine Ketones (units ( unknown) date) (NEGATIVE) unknown) (unknown) (no (unknown) (unknown) Urine Ketones (units ( unknown) date) Negative (NEGATIVE) unknown) (unknown) (no (unknown) (unknown) Urine Methadone (units (unknown) date) Screen (Negative) unknown) (unknown) (no (unknown) (unknown) Urine Methadone (units (unknown) date) Screen Negative unknown) (Negative) (unknown) (no (unknown) (unknown) Urine Nitrate (units ( unknown) date) (Negative) unknown) (unknown) (no (unknown) (unknown) Urine Nitrate (units ( unknown) date) Negative (Negative) unknown) (unknown) (no (unknown) (unknown) Urine Occult Blood (units (unknown) date) (Negative) unknown) (unknown) (no (unknown) (unknown) Urine Occult Blood (units (unknown) date) Negative (Negative) unknown) (unknown) (no (unknown) (unknown) Urine Protein (units ( unknown) date) (Negative) unknown) (unknown) (no (unknown) (unknown) Urine Protein (units ( unknown) date) Negative (Negative) unknown) (unknown) (no (unknown) (unknown) Urine RBC (units (unkn own) date) (0-5/HPF) unknown) (unknown) (no (unknown) (unknown) Urine RBC None (units (unknown) date) seen (0-5/HPF) unknown) (unknown) (no (unknown) (unknown) Urine Urobilinogen (units (unknown) date) (0.2) E.U./dL unknown) (unknown) (no (unknown) (unknown) Urine Urobilinogen (units (unknown) date) 0.2 (0.2) E.U./dL unknown) (unknown) (no (unknown) (unknown) Urine WBC (units (unkn own) date) (0-5/HPF) unknown) (unknown) (no (unknown) (unknown) Urine WBC 0-1/hpf (units (unknown) date) (0-5/HPF) unknown) (unknown) (no (unknown) (unknown) Urine pH (4.5-8.0) (units (unknown) date) unknown) (unknown) (no (unknown) (unknown) Urine pH 6.0 (units (u nknown) date) (4.5-8.0) unknown) (unknown) (no (unknown) (unknown) Vital Signs - 8 hr (units (unknown) date) unknown) (unknown) (no (unknown) (unknown) Vital Signs (units (un known) date) unknown) (unknown) (no (unknown) (unknown) Vital signs: (units (u nknown) date) unknown) (unknown) (no (unknown) (unknown) WBC (4.5-11.0) (units (unknown) date) X103/uL unknown) (unknown) (no (unknown) (unknown) WBC 5.3 (4.5-11.0) (units (unknown) date) X103/uL unknown) (unknown) (no (unknown) (unknown) [Embedded Image (units (unknown) date) Not Available] unknown) (unknown) (no (unknown) (unknown) alcohol intake (units (unknown) date) frequency: 3 or unknown) more drinks per day (unknown) (no (unknown) (unknown) alcohol intake: (units (unknown) date) current unknown) (unknown) (no (unknown) (unknown) fluconazole 150 mg (units (unknown) date) tablet 150 mg PO unknown) DAILY #1 tab 11/03/21 (unknown) (no (unknown) (unknown) fluconazole (units (un known) date) [Diflucan] 150 mg unknown) tablet (unknown) (no (unknown) (unknown) fluvoxamine 50 mg (units (unknown) date) tablet 50 mg DAILY unknown) 10/24/21 11/24/21 (unknown) (no (unknown) (unknown) fluvoxamine 50 mg (units (unknown) date) tablet unknown) (unknown) (no (unknown) (unknown) household members: (units (unknown) date) spouse and children unknown) (unknown) (no (unknown) (unknown) hydroxyzine HCl 25 (units (unknown) date) mg tablet 25 mg PO unknown) BEDTIME PRN sleep #7 tabs 10/24/21 (unknown) (no (unknown) (unknown) hydroxyzine HCl 25 (units (unknown) date) mg tablet unknown) (unknown) (no (unknown) (unknown) losartan 50 mg (units (unknown) date) tablet 50 mg PO unknown) DAILY 10/17/21 11/24/21 (unknown) (no (unknown) (unknown) losartan 50 mg (units (unknown) date) tablet unknown) Result panel 113 (unknown) (no (unknown) (unknown) (no value) (units (unk nown) date) unknown) (unknown) (no (unknown) (unknown) (Diflucan) (units (unk nown) date) unknown) (unknown) (no (unknown) (unknown) 00:00 03/28/22 (units (unknown) date) unknown) (unknown) (no (unknown) (unknown) 00:30 (units (unkno wn) date) unknown) (unknown) (no (unknown) (unknown) 03/27/22 03/27/22 (units (unknown) date) 03/27/22 unknown) Range/Units (unknown) (no (unknown) (unknown) 03/27/22 03/27/22 (units (unknown) date) 03/28/22 unknown) Range/Units (unknown) (no (unknown) (unknown) 03/27/22 20:23 (units (unknown) date) unknown) (unknown) (no (unknown) (unknown) 03/27/22 20:30 (units (unknown) date) unknown) (unknown) (no (unknown) (unknown) 03/27/22 21:19 (units (unknown) date) unknown) (unknown) (no (unknown) (unknown) 03/27/22 21:44 (units (unknown) date) unknown) (unknown) (no (unknown) (unknown) 03/27/22 (units (unkno wn) date) unknown) (unknown) (no (unknown) (unknown) 03/28/22 01:49 (units (unknown) date) unknown) (unknown) (no (unknown) (unknown) 150 mg PO DAILY (units (unknown) date) Qty: 1 1RF unknown) (unknown) (no (unknown) (unknown) 19, is apparently (units (unknown) date) in the hospital and unknown) wants ?nothing to do with her? including (unknown) (no (unknown) (unknown) 20:15 03/27/22 (units (unknown) date) unknown) (unknown) (no (unknown) (unknown) 20:23 20:30 21:19 (units (unknown) date) unknown) (unknown) (no (unknown) (unknown) 21:08 03/27/22 (units (unknown) date) unknown) (unknown) (no (unknown) (unknown) 21:08 (units (unkno wn) date) unknown) (unknown) (no (unknown) (unknown) 21:19 21:19 02:09 (units (unknown) date) unknown) (unknown) (no (unknown) (unknown) 21:20 03/27/22 (units (unknown) date) unknown) (unknown) (no (unknown) (unknown) 21:30 03/27/22 (units (unknown) date) unknown) (unknown) (no (unknown) (unknown) 21:30 (units (unkno wn) date) unknown) (unknown) (no (unknown) (unknown) 22:00 03/27/22 (units (unknown) date) unknown) (unknown) (no (unknown) (unknown) 22:30 (units (unkno wn) date) unknown) (unknown) (no (unknown) (unknown) 23 with an overdose (units (unknown) date) with reportedly unknown) benzodiazepines including Valium and Ativan, (unknown) (no (unknown) (unknown) 23:00 03/27/22 (units (unknown) date) unknown) (unknown) (no (unknown) (unknown) 23:30 03/27/22 (units (unknown) date) unknown) (unknown) (no (unknown) (unknown) 23:56 03/28/22 (units (unknown) date) unknown) (unknown) (no (unknown) (unknown) 23:56 (units (unkno wn) date) unknown) (unknown) (no (unknown) (unknown) 24 was felt to (units (unknown) date) be forward thinking unknown) and planning and safe for discharge home. (unknown) (no (unknown) (unknown) 25 mg PO BEDTIME (units (unknown) date) PRN (Reason: sleep) unknown) Qty: 7 0RF (unknown) (no (unknown) (unknown) 3am she has gone (units (unknown) date) back to sleep and I unknown) am not going to disturb her at this time. (unknown) (no (unknown) (unknown) 41-year-old woman (units (unknown) date) with a history of unknown) depression was brought in by her friend (unknown) (no (unknown) (unknown) 50 mg DAILY (units (un known) date) unknown) (unknown) (no (unknown) (unknown) 50 mg PO DAILY (units (unknown) date) unknown) (unknown) (no (unknown) (unknown) 8-year-old son has (units (unknown) date) said he wants to unknown) live with both of them. She said that after (unknown) (no (unknown) (unknown) ALT (<35) IU/L (units (unknown) date) unknown) (unknown) (no (unknown) (unknown) ALT 28 (<35) IU/L (units (unknown) date) unknown) (unknown) (no (unknown) (unknown) AST (14-36) IU/L (units (unknown) date) unknown) (unknown) (no (unknown) (unknown) AST 38 H (14-36) (units (unknown) date) IU/L unknown) (unknown) (no (unknown) (unknown) Abdomen: Soft, (units (unknown) date) nontender, good unknown) bowel tones, no flank pain (unknown) (no (unknown) (unknown) Abnormal uterine (units (unknown) date) bleeding (AUB) unknown) (unknown) (no (unknown) (unknown) Acetaminophen < 10 (units (unknown) date) (10-30) ug/mL unknown) (unknown) (no (unknown) (unknown) Acetaminophen (units ( unknown) date) (10-30) ug/mL unknown) (unknown) (no (unknown) (unknown) Acetaminophen Stat (units (unknown) date) unknown) (unknown) (no (unknown) (unknown) Age/Sex: 41 / F (units (unknown) date) unknown) (unknown) (no (unknown) (unknown) Albumin (3.5-5.0) (units (unknown) date) g/dL unknown) (unknown) (no (unknown) (unknown) Albumin 4.0 (units (un known) date) (3.5-5.0) g/dL unknown) (unknown) (no (unknown) (unknown) Albumin/Globulin (units (unknown) date) Ratio (1.0-2.8) unknown) (unknown) (no (unknown) (unknown) Albumin/Globulin (units (unknown) date) Ratio 1.2 (1.0-2.8) unknown) (unknown) (no (unknown) (unknown) Alcohol (units (unkno wn) date) intoxication, Major unknown) depression, Acute situational disturbance, (unknown) (no (unknown) (unknown) Alkaline (units (unkno wn) date) Phosphatase unknown) (38-126) U/L (unknown) (no (unknown) (unknown) Alkaline (units (unkno wn) date) Phosphatase 52 unknown) (38-126) U/L (unknown) (no (unknown) (unknown) Allergies (units (unkn own) date) unknown) (unknown) (no (unknown) (unknown) Allergy/AdvReac (units (unknown) date) Type Severity unknown) Reaction Status Date / Time (unknown) (no (unknown) (unknown) Anesthesia (units (unk nown) date) unknown) (unknown) (no (unknown) (unknown) Apparently her (units (unknown) date) ex- and 2 unknown) older children live in [place], the oldest son, (unknown) (no (unknown) (unknown) BUN (7-17) mg/dL (units (unknown) date) unknown) (unknown) (no (unknown) (unknown) BUN 15 (7-17) (units ( unknown) date) mg/dL unknown) (unknown) (no (unknown) (unknown) BUN/Creatinine (units (unknown) date) Ratio (6-22) unknown) (unknown) (no (unknown) (unknown) BUN/Creatinine (units (unknown) date) Ratio 20.3 (6-22) unknown) (unknown) (no (unknown) (unknown) Baso # (Auto) (units ( unknown) date) (0-100) /uL unknown) (unknown) (no (unknown) (unknown) Baso # (Auto) 100 (units (unknown) date) (0-100) /uL unknown) (unknown) (no (unknown) (unknown) Baso % (Auto) (units ( unknown) date) (0-2) % unknown) (unknown) (no (unknown) (unknown) Baso % (Auto) 1.3 (units (unknown) date) (0-2) % unknown) (unknown) (no (unknown) (unknown) Blood Pressure (units (unknown) date) 102/60 unknown) (unknown) (no (unknown) (unknown) Blood Pressure (units (unknown) date) 110/65 98/61 unknown) (unknown) (no (unknown) (unknown) Blood Pressure (units (unknown) date) 99/55 L 03/27/22 unknown) 20:15 (unknown) (no (unknown) (unknown) Blood Pressure (units (unknown) date) 99/55 L 89/55 L unknown) (unknown) (no (unknown) (unknown) Blood Pressure (units (unknown) date) unknown) (unknown) (no (unknown) (unknown) Breast cancer (units ( unknown) date) unknown) (unknown) (no (unknown) (unknown) Breast cyst (units (un known) date) (-1998) unknown) (unknown) (no (unknown) (unknown) CBC shows no (units (u nknown) date) leukocytosis but unknown) she does have a mild macrocytosis consistent with (unknown) (no (unknown) (unknown) CC: Acute alcohol (units (unknown) date) intoxication with unknown) suicidal ideation (unknown) (no (unknown) (unknown) Calcium (8.4-10.2) (units (unknown) date) mg/dL unknown) (unknown) (no (unknown) (unknown) Calcium 8.7 (units (un known) date) (8.4-10.2) mg/dL unknown) (unknown) (no (unknown) (unknown) Carbon Dioxide (units (unknown) date) (22-32) mmol/L unknown) (unknown) (no (unknown) (unknown) Carbon Dioxide 21 (units (unknown) date) L (22-32) mmol/L unknown) (unknown) (no (unknown) (unknown) Cardiac: Regular (units (unknown) date) rate and rhythm no unknown) murmurs no bruits (unknown) (no (unknown) (unknown) Chemistries are (units (unknown) date) reassuring with unknown) minimally elevated AST again consistent with (unknown) (no (unknown) (unknown) Chief Complaint: (units (unknown) date) Psychiatric unknown) Symptoms (unknown) (no (unknown) (unknown) Chloride (98-107) (units (unknown) date) mmol/L unknown) (unknown) (no (unknown) (unknown) Chloride 106 (units (u nknown) date) (98-107) mmol/L unknown) (unknown) (no (unknown) (unknown) Clinical (units (unkno wn) date) Impression: unknown) (unknown) (no (unknown) (unknown) Complete Blood (units (unknown) date) Count AUTO DIFF unknown) Stat (unknown) (no (unknown) (unknown) Complicating (units (u nknown) date) co-morbidities: unknown) Similar with overdose with benzodiazepines and her (unknown) (no (unknown) (unknown) Comprehensive (units ( unknown) date) Metabolic Panel unknown) Stat (unknown) (no (unknown) (unknown) 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 - (units (unknown) date) Welding Inspector unknown) Stat (unknown) (no (unknown) (unknown) Consultations: (units (unknown) date) unknown) (unknown) (no (unknown) (unknown) Corroborating (units ( unknown) date) data: unknown) (unknown) (no (unknown) (unknown) Course (units (unkno wn) date) unknown) (unknown) (no (unknown) (unknown) Creatinine (units (unk nown) date) (0.52-1.04) mg/dL unknown) (unknown) (no (unknown) (unknown) Creatinine 0.74 (units (unknown) date) (0.52-1.04) mg/dL unknown) (unknown) (no (unknown) (unknown) : 1980 (units (unknown) date) Acct:[id number] unknown) (unknown) (no (unknown) (unknown) Data collected (units (unknown) date) from: patient, unknown) (unknown) (no (unknown) (unknown) Date of Service: (units (unknown) date) 03/27/22 unknown) (unknown) (no (unknown) (unknown) Departure (units (unkn own) date) unknown) (unknown) (no (unknown) (unknown) Depression with (units (unknown) date) suicidal ideation unknown) (unknown) (no (unknown) (unknown) Depression (units (unk nown) date) unknown) (unknown) (no (unknown) (unknown) Differential (units (u nknown) date) considered: Major unknown) depression, alcohol use disorder, acute (unknown) (no (unknown) (unknown) Discharge Plan (units (unknown) date) unknown) (unknown) (no (unknown) (unknown) Discussion: (units (un known) date) unknown) (unknown) (no (unknown) (unknown) Disposition: see (units (unknown) date) below, along with unknown) detailed discharge instructions that have (unknown) (no (unknown) (unknown) ED Orders (units (unkn own) date) unknown) (unknown) (no (unknown) (unknown) ER Physician: (units ( unknown) date) Yajaira Rose MD unknown) (unknown) (no (unknown) (unknown) ETOH [Ethanol (units ( unknown) date) (ETOH)] Stat unknown) (unknown) (no (unknown) (unknown) Emergency Report (units (unknown) date) unknown) (unknown) (no (unknown) (unknown) Eos # (Auto) (units (u nknown) date) (0-450) /uL unknown) (unknown) (no (unknown) (unknown) Eos # (Auto) 200 (units (unknown) date) (0-450) /uL unknown) (unknown) (no (unknown) (unknown) Eos % (Auto) (2-4) (units (unknown) date) % unknown) (unknown) (no (unknown) (unknown) Eos % (Auto) 2.9 (units (unknown) date) (2-4) % unknown) (unknown) (no (unknown) (unknown) Estimated GFR > 60 (units (unknown) date) (>60) mL/min unknown) (unknown) (no (unknown) (unknown) Estimated GFR (units ( unknown) date) (>60) mL/min unknown) (unknown) (no (unknown) (unknown) Ethanol (ETOH) (units (unknown) date) Stat unknown) (unknown) (no (unknown) (unknown) Ethyl Alcohol ( - (units (unknown) date) 10) mg/dL unknown) (unknown) (no (unknown) (unknown) Ethyl Alcohol 124 (units (unknown) date) H < 10 ( - 10) unknown) mg/dL (unknown) (no (unknown) (unknown) Exam documented (units (unknown) date) above, pertinent unknown) findings include: Fatigued appearing, poor (unknown) (no (unknown) (unknown) Exam (units (unkno wn) date) unknown) (unknown) (no (unknown) (unknown) Extremities: No (units (unknown) date) trauma, well unknown) perfused, no evidence of self cutting (unknown) (no (unknown) (unknown) Family History (units (unknown) date) (Updated 10/02/21 @ unknown) 19:54 by Alysia Hernandez MD) (unknown) (no (unknown) (unknown) Free T4 (units (unkno wn) date) (0.78-2.19) ng/dL unknown) (unknown) (no (unknown) (unknown) Free T4 0.89 (units (u nknown) date) (0.78-2.19) ng/dL unknown) (unknown) (no (unknown) (unknown) Free T4, Direct (units (unknown) date) Thyroxine Stat unknown) (unknown) (no (unknown) (unknown) Full and (units (unkno wn) date) symmetrical air unknown) movement (unknown) (no (unknown) (unknown) General (units (unkno wn) date) unknown) (unknown) (no (unknown) (unknown) General: Appears (units (unknown) date) Emotionally and unknown) physically exhausted, moderate eye contact she (unknown) (no (unknown) (unknown) Globulin (1.7-4.1) (units (unknown) date) g/dL unknown) (unknown) (no (unknown) (unknown) Globulin 3.3 (units (u nknown) date) (1.7-4.1) g/dL unknown) (unknown) (no (unknown) (unknown) Glucose (70-100) (units (unknown) date) mg/dL unknown) (unknown) (no (unknown) (unknown) Glucose 79 (units (unk nown) date) (70-100) mg/dL unknown) (unknown) (no (unknown) (unknown) HEENT: Moist (units (u nknown) date) mucous membranes, unknown) normal sclera with reactive pupils, (unknown) (no (unknown) (unknown) HPI - Psych (units (un known) date) unknown) (unknown) (no (unknown) (unknown) HPI Narrative: (units (unknown) date) unknown) (unknown) (no (unknown) (unknown) Hct (36-46) % (units ( unknown) date) unknown) (unknown) (no (unknown) (unknown) Hct 39.1 (36-46) % (units (unknown) date) unknown) (unknown) (no (unknown) (unknown) Herpes (-2000) (units (unknown) date) unknown) (unknown) (no (unknown) (unknown) Hgb (12.0-16.0) (units (unknown) date) g/dL unknown) (unknown) (no (unknown) (unknown) Hgb 13.3 (units (unkno wn) date) (12.0-16.0) g/dL unknown) (unknown) (no (unknown) (unknown) History of Present (units (unknown) date) Illness unknown) (unknown) (no (unknown) (unknown) Home Medications (units (unknown) date) unknown) (unknown) (no (unknown) (unknown) Hyperlipidemia (units (unknown) date) unknown) (unknown) (no (unknown) (unknown) Hypertension (units (u nknown) date) unknown) (unknown) (no (unknown) (unknown) I would feel much (units (unknown) date) more comfortable if unknown) she had a chance to talk to our social (unknown) (no (unknown) (unknown) Initial Vital (units ( unknown) date) Signs unknown) (unknown) (no (unknown) (unknown) Initial Vital (units ( unknown) date) Signs: unknown) (unknown) (no (unknown) (unknown) [facility] (units (unknown) date) [address] unknown) [place] [address] (unknown) (no (unknown) (unknown) Lab Data (units (unkno wn) date) unknown) (unknown) (no (unknown) (unknown) Lab Results (units (un known) date) unknown) (unknown) (no (unknown) (unknown) Lab Test results (units (unknown) date) independently unknown) reviewed as above. Pertinent findings: (unknown) (no (unknown) (unknown) Label Comments: (units (unknown) date) unknown) (unknown) (no (unknown) (unknown) Labs: (units (unkno wn) date) unknown) (unknown) (no (unknown) (unknown) Lymph # (Auto) (units (unknown) date) (2913-4325) /uL unknown) (unknown) (no (unknown) (unknown) Lymph # (Auto) (units (unknown) date) 1500 (1288-8106) unknown) /uL (unknown) (no (unknown) (unknown) Lymph % (Auto) (units (unknown) date) (25-40) % unknown) (unknown) (no (unknown) (unknown) Lymph % (Auto) (units (unknown) date) 28.5 (25-40) % unknown) (unknown) (no (unknown) (unknown) [id number] (units (unk nown) date) unknown) (unknown) (no (unknown) (unknown) MCH (26-34) PG (units (unknown) date) unknown) (unknown) (no (unknown) (unknown) MCH 35.0 H (26-34) (units (unknown) date) PG unknown) (unknown) (no (unknown) (unknown) MCHC (30-36) % (units (unknown) date) unknown) (unknown) (no (unknown) (unknown) MCHC 34.0 (30-36) (units (unknown) date) % unknown) (unknown) (no (unknown) (unknown) MCV (80-100) fL (units (unknown) date) unknown) (unknown) (no (unknown) (unknown) MCV 103.0 H (units (un known) date) (80-100) fL unknown) (unknown) (no (unknown) (unknown) MDM - Psych (units (un known) date) unknown) (unknown) (no (unknown) (unknown) MDM Narrative (units ( unknown) date) unknown) (unknown) (no (unknown) (unknown) Medical History (units (unknown) date) (Updated 03/28/22 @ unknown) 03:02 by Yajaira Rose MD) (unknown) (no (unknown) (unknown) Medical decision (units (unknown) date) making narrative: unknown) (unknown) (no (unknown) (unknown) Medical records (units (unknown) date) reviewed: Records unknown) from [facility] Emergency Department (unknown) (no (unknown) (unknown) Medication (units (unk nown) date) Instructions unknown) Recorded Confirmed (unknown) (no (unknown) (unknown) Medication (units (unk nown) date) Instructions unknown) Recorded (unknown) (no (unknown) (unknown) Mental health (units ( unknown) date) problem unknown) (unknown) (no (unknown) (unknown) Rubina Mullins PA-C (units (unknown) date) [Primary Care unknown) Provider] (unknown) (no (unknown) (unknown) Mode of arrival: (units (unknown) date) Ambulatory unknown) (unknown) (no (unknown) (unknown) [place] # (Auto) (units ( unknown) date) (0-900) /uL unknown) (unknown) (no (unknown) (unknown) [place] # (Auto) 500 (units (unknown) date) (0-900) /uL unknown) (unknown) (no (unknown) (unknown) [place] % (Auto) (units ( unknown) date) (3-14) % unknown) (unknown) (no (unknown) (unknown) [place] % (Auto) 9.7 (units (unknown) date) (3-14) % unknown) (unknown) (no (unknown) (unknown) Mother Diabetes (units (unknown) date) mellitus unknown) (unknown) (no (unknown) (unknown) Narrative: (units (unk nown) date) unknown) (unknown) (no (unknown) (unknown) Neurologic: (units (un known) date) Grossly unknown) neurologically intact with no obvious asymmetries or (unknown) (no (unknown) (unknown) Neut # (Auto) (units ( unknown) date) (4468-3143) /uL unknown) (unknown) (no (unknown) (unknown) Neut # (Auto) 3100 (units (unknown) date) (5704-4868) /uL unknown) (unknown) (no (unknown) (unknown) Neut % (Auto) (units ( unknown) date) (50-75) % unknown) (unknown) (no (unknown) (unknown) Neut % (Auto) 57.6 (units (unknown) date) (50-75) % unknown) (unknown) (no (unknown) (unknown) No Action (units (unkn own) date) unknown) (unknown) (no (unknown) (unknown) No Known Drug (units ( unknown) date) Allergies Allergy unknown) Verified 11/24/21 10:21 (unknown) (no (unknown) (unknown) No evidence of (units (unknown) date) thyroid abnormality unknown) (unknown) (no (unknown) (unknown) No significant (units (unknown) date) medical problems unknown) (unknown) (no (unknown) (unknown) Once she has (units (u nknown) date) sobered slightly we unknown) are able to have a reasonable discussion. She (unknown) (no (unknown) (unknown) Ordered: (units (unkno wn) date) unknown) (unknown) (no (unknown) (unknown) Orders (units (unkno wn) date) unknown) (unknown) (no (unknown) (unknown) Oxygen Delivery (units (unknown) date) Method 03/27/22 unknown) 20:15 (unknown) (no (unknown) (unknown) Oxygen Delivery (units (unknown) date) Method Room Air unknown) (unknown) (no (unknown) (unknown) Oxygen Delivery (units (unknown) date) Method unknown) (unknown) (no (unknown) (unknown) PTSD (units (unkno wn) date) (post-traumatic unknown) stress disorder) (unknown) (no (unknown) (unknown) Patient History (units (unknown) date) unknown) (unknown) (no (unknown) (unknown) Patient: (units (unkno wn) date) Cate Holcomb unknown) MR#: (unknown) (no (unknown) (unknown) Pelvic pain (units (un known) date) unknown) (unknown) (no (unknown) (unknown) Plt Count (units (unkn own) date) (150-400) X103/uL unknown) (unknown) (no (unknown) (unknown) Plt Count 254 (units ( unknown) date) (150-400) X103/uL unknown) (unknown) (no (unknown) (unknown) Potassium (units (unkn own) date) (3.4-5.1) mmol/L unknown) (unknown) (no (unknown) (unknown) Potassium 3.9 (units ( unknown) date) (3.4-5.1) mmol/L unknown) (unknown) (no (unknown) (unknown) Prescriptions: (units (unknown) date) unknown) (unknown) (no (unknown) (unknown) Previous Rx's (units ( unknown) date) unknown) (unknown) (no (unknown) (unknown) Psoriasis (units (unkn own) date) unknown) (unknown) (no (unknown) (unknown) Psych: Poor (units (un known) date) overall insight, unknown) significant denial, poor eye contact, fluent (unknown) (no (unknown) (unknown) Pulse Oximetry 96 (units (unknown) date) 03/27/22 20:15 unknown) (unknown) (no (unknown) (unknown) Pulse Oximetry 96 (units (unknown) date) 97 unknown) (unknown) (no (unknown) (unknown) Pulse Oximetry 96 (units (unknown) date) 98 unknown) (unknown) (no (unknown) (unknown) Pulse Oximetry 96 (units (unknown) date) unknown) (unknown) (no (unknown) (unknown) Pulse Oximetry 98 (units (unknown) date) 96 96 unknown) (unknown) (no (unknown) (unknown) Pulse Oximetry 99 (units (unknown) date) 96 94 unknown) (unknown) (no (unknown) (unknown) Pulse Rate 64 (units ( unknown) date) 03/27/22 20:15 unknown) (unknown) (no (unknown) (unknown) Pulse Rate 64 (units ( unknown) date) unknown) (unknown) (no (unknown) (unknown) Pulse Rate 67 64 (units (unknown) date) 84 unknown) (unknown) (no (unknown) (unknown) Pulse Rate 68 68 (units (unknown) date) unknown) (unknown) (no (unknown) (unknown) Pulse Rate 70 68 (units (unknown) date) 67 unknown) (unknown) (no (unknown) (unknown) Pulse Rate 77 (units ( unknown) date) unknown) (unknown) (no (unknown) (unknown) RBC (4.0-5.2) (units ( unknown) date) X106/uL unknown) (unknown) (no (unknown) (unknown) RBC 3.80 L (units (unk nown) date) (4.0-5.2) X106/uL unknown) (unknown) (no (unknown) (unknown) RDW (11.6-14.8) % (units (unknown) date) unknown) (unknown) (no (unknown) (unknown) RDW 14.0 (units (unkno wn) date) (11.6-14.8) % unknown) (unknown) (no (unknown) (unknown) Re-evaluations: (units (unknown) date) Patient is unknown) clinically and medically sober with no signs of (unknown) (no (unknown) (unknown) Referrals: (units (unk nown) date) unknown) (unknown) (no (unknown) (unknown) Related Data (units (u nknown) date) unknown) (unknown) (no (unknown) (unknown) Remainder of (units (u nknown) date) complete review of unknown) systems is otherwise unremarkable except for (unknown) (no (unknown) (unknown) Repeat alcohol (units (unknown) date) level at 2:30 a.m. unknown) is less than 0. (unknown) (no (unknown) (unknown) Respiratory Rate (units (unknown) date) 18 03/27/22 20:15 unknown) (unknown) (no (unknown) (unknown) Respiratory Rate (units (unknown) date) 18 unknown) (unknown) (no (unknown) (unknown) Respiratory Rate (units (unknown) date) unknown) (unknown) (no (unknown) (unknown) Respiratory: Lungs (units (unknown) date) are clear to unknown) auscultation, no wheezing no rales no rhonchi. (unknown) (no (unknown) (unknown) Review of Systems (units (unknown) date) unknown) (unknown) (no (unknown) (unknown) Salicylate Stat (units (unknown) date) unknown) (unknown) (no (unknown) (unknown) Salicylates < 1.0 (units (unknown) date) (<20) mg/dL unknown) (unknown) (no (unknown) (unknown) Salicylates (<20) (units (unknown) date) mg/dL unknown) (unknown) (no (unknown) (unknown) Severe (units (unkno wn) date) dysmenorrhea unknown) (unknown) (no (unknown) (unknown) She simply states (units (unknown) date) that she wants to unknown) harm herself but does not have a discrete (unknown) (no (unknown) (unknown) She was discharged (units (unknown) date) from would be unknown) emergency department around noon and was (unknown) (no (unknown) (unknown) Signed By: (units (unk nown) date) unknown) (unknown) (no (unknown) (unknown) Skin: Warm and (units (unknown) date) dry, no rashes unknown) (unknown) (no (unknown) (unknown) Smoking Status: (units (unknown) date) Former smoker unknown) (unknown) (no (unknown) (unknown) Social History (units (unknown) date) (Reviewed 02/18/20 unknown) @ 12:52 by EDDIE Castillo) (unknown) (no (unknown) (unknown) Social (units (unkno wn) date) determinants of unknown) health that may influence the patients condition: Recent (unknown) (no (unknown) (unknown) Sodium (137-145) (units (unknown) date) mmol/L unknown) (unknown) (no (unknown) (unknown) Sodium 140 (units (unk nown) date) (137-145) mmol/L unknown) (unknown) (no (unknown) (unknown) Source: patient (units (unknown) date) unknown) (unknown) (no (unknown) (unknown) Stated Complaint: (units (unknown) date) suicidal unknown) (unknown) (no (unknown) (unknown) Status post (units (un known) date) laparoscopic unknown) supracervical hysterectomy (10/27/21) (unknown) (no (unknown) (unknown) Substance Use (units ( unknown) date) Type: does not use unknown) (unknown) (no (unknown) (unknown) Surgical History (units (unknown) date) (Updated 11/25/21 @ unknown) 22:07 by Alysia Hernandez MD) (unknown) (no (unknown) (unknown) TAKE 1 TABLET BY (units (unknown) date) MOUTH EVERY EVENING unknown) (unknown) (no (unknown) (unknown) TSH (0.47-4.68) (units (unknown) date) uIU/mL unknown) (unknown) (no (unknown) (unknown) TSH 1.17 (units (unkno wn) date) (0.47-4.68) uIU/mL unknown) (unknown) (no (unknown) (unknown) Temperature 97.9 F (units (unknown) date) 03/27/22 20:15 unknown) (unknown) (no (unknown) (unknown) Temperature 97.9 F (units (unknown) date) unknown) (unknown) (no (unknown) (unknown) Temperature (units (un known) date) unknown) (unknown) (no (unknown) (unknown) Thyroid (units (unkno wn) date) Stimulating Hormone unknown) Stat (unknown) (no (unknown) (unknown) Time Seen by (units (u nknown) date) Provider: 03/27/22 unknown) 22:28 (unknown) (no (unknown) (unknown) Total Bilirubin (units (unknown) date) (0.2-1.3) mg/dL unknown) (unknown) (no (unknown) (unknown) Total Bilirubin (units (unknown) date) 0.4 (0.2-1.3) mg/dL unknown) (unknown) (no (unknown) (unknown) Total Protein (units ( unknown) date) (6.3-8.2) g/dL unknown) (unknown) (no (unknown) (unknown) Total Protein 7.3 (units (unknown) date) (6.3-8.2) g/dL unknown) (unknown) (no (unknown) (unknown) Treatments: (units (un known) date) Sobering unknown) (unknown) (no (unknown) (unknown) U Benzodiazepines (units (unknown) date) Scrn (Negative) unknown) (unknown) (no (unknown) (unknown) U Benzodiazepines (units (unknown) date) Scrn Positive H unknown) (Negative) (unknown) (no (unknown) (unknown) U Marijuana (THC) (units (unknown) date) Screen (Negative) unknown) (unknown) (no (unknown) (unknown) U Marijuana (THC) (units (unknown) date) Screen Negative unknown) (Negative) (unknown) (no (unknown) (unknown) U Methamphetamines (units (unknown) date) Scrn (Negative) unknown) (unknown) (no (unknown) (unknown) U Methamphetamines (units (unknown) date) Scrn Negative unknown) (Negative) (unknown) (no (unknown) (unknown) U Opiates 300ng/mL (units (unknown) date) cut (Negative) unknown) (unknown) (no (unknown) (unknown) U Opiates 300ng/mL (units (unknown) date) cut Negative unknown) (Negative) (unknown) (no (unknown) (unknown) U Tricyclic (units (un known) date) Antidepress unknown) (Negative) (unknown) (no (unknown) (unknown) U Tricyclic (units (un known) date) Antidepress unknown) Negative (Negative) (unknown) (no (unknown) (unknown) Ur Amphetamines (units (unknown) date) Screen (Negative) unknown) (unknown) (no (unknown) (unknown) Ur Amphetamines (units (unknown) date) Screen Negative unknown) (Negative) (unknown) (no (unknown) (unknown) Ur Barbiturates (units (unknown) date) Screen (Negative) unknown) (unknown) (no (unknown) (unknown) Ur Barbiturates (units (unknown) date) Screen Negative unknown) (Negative) (unknown) (no (unknown) (unknown) Ur Culture (units (unk nown) date) Indicated? Cult not unknown) indicated (unknown) (no (unknown) (unknown) Ur Culture (units (unk nown) date) Indicated? unknown) (unknown) (no (unknown) (unknown) Ur Leukocyte (units (u nknown) date) Esterase (NEGATIVE) unknown) (unknown) (no (unknown) (unknown) Ur Leukocyte (units (u nknown) date) Esterase Negative unknown) (NEGATIVE) (unknown) (no (unknown) (unknown) Ur MDMA Scrn (units (u nknown) date) (Ecstasy) unknown) (Negative) (unknown) (no (unknown) (unknown) Ur MDMA Scrn (units (u nknown) date) (Ecstasy) Negative unknown) (Negative) (unknown) (no (unknown) (unknown) Ur Oxycodone (units (u nknown) date) Screen (Negative) unknown) (unknown) (no (unknown) (unknown) Ur Oxycodone (units (u nknown) date) Screen Negative unknown) (Negative) (unknown) (no (unknown) (unknown) Ur Phencyclidine (units (unknown) date) Scrn (Negative) unknown) (unknown) (no (unknown) (unknown) Ur Phencyclidine (units (unknown) date) Scrn Negative unknown) (Negative) (unknown) (no (unknown) (unknown) Ur Specific (units (un known) date) [place] <=1.005 unknown) (1.000-1.035) (unknown) (no (unknown) (unknown) Ur Specific (units (un known) date) [place] unknown) (1.000-1.035) (unknown) (no (unknown) (unknown) Ur Squamous Epith (units (unknown) date) Cells (0-5/HPF) unknown) (unknown) (no (unknown) (unknown) Ur Squamous Epith (units (unknown) date) Cells None seen unknown) (0-5/HPF) (unknown) (no (unknown) (unknown) Urinalysis and (units (unknown) date) Microscopic Stat unknown) (unknown) (no (unknown) (unknown) Urine Appearance (units (unknown) date) Clear unknown) (unknown) (no (unknown) (unknown) Urine Appearance (units (unknown) date) unknown) (unknown) (no (unknown) (unknown) Urine Bacteria (units (unknown) date) (None) unknown) (unknown) (no (unknown) (unknown) Urine Bacteria (units (unknown) date) Occasional (0-1) unknown) (None) (unknown) (no (unknown) (unknown) Urine Bilirubin (units (unknown) date) (NEGATIVE) unknown) (unknown) (no (unknown) (unknown) Urine Bilirubin (units (unknown) date) Negative (NEGATIVE) unknown) (unknown) (no (unknown) (unknown) Urine Cocaine (units ( unknown) date) Screen (Negative) unknown) (unknown) (no (unknown) (unknown) Urine Cocaine (units ( unknown) date) Screen Negative unknown) (Negative) (unknown) (no (unknown) (unknown) Urine Color Lt. (units (unknown) date) yellow unknown) (unknown) (no (unknown) (unknown) Urine Color (units (un known) date) unknown) (unknown) (no (unknown) (unknown) Urine Drug Screen, (units (unknown) date) Rapid Stat unknown) (unknown) (no (unknown) (unknown) Urine Glucose (UA) (units (unknown) date) (Negative) g/dL unknown) (unknown) (no (unknown) (unknown) Urine Glucose (UA) (units (unknown) date) Negative (Negative) unknown) g/dL (unknown) (no (unknown) (unknown) Urine Ketones (units ( unknown) date) (NEGATIVE) unknown) (unknown) (no (unknown) (unknown) Urine Ketones (units ( unknown) date) Negative (NEGATIVE) unknown) (unknown) (no (unknown) (unknown) Urine Methadone (units (unknown) date) Screen (Negative) unknown) (unknown) (no (unknown) (unknown) Urine Methadone (units (unknown) date) Screen Negative unknown) (Negative) (unknown) (no (unknown) (unknown) Urine Nitrate (units ( unknown) date) (Negative) unknown) (unknown) (no (unknown) (unknown) Urine Nitrate (units ( unknown) date) Negative (Negative) unknown) (unknown) (no (unknown) (unknown) Urine Occult Blood (units (unknown) date) (Negative) unknown) (unknown) (no (unknown) (unknown) Urine Occult Blood (units (unknown) date) Negative (Negative) unknown) (unknown) (no (unknown) (unknown) Urine Protein (units ( unknown) date) (Negative) unknown) (unknown) (no (unknown) (unknown) Urine Protein (units ( unknown) date) Negative (Negative) unknown) (unknown) (no (unknown) (unknown) Urine RBC (units (unkn own) date) (0-5/HPF) unknown) (unknown) (no (unknown) (unknown) Urine RBC None (units (unknown) date) seen (0-5/HPF) unknown) (unknown) (no (unknown) (unknown) Urine Urobilinogen (units (unknown) date) (0.2) E.U./dL unknown) (unknown) (no (unknown) (unknown) Urine Urobilinogen (units (unknown) date) 0.2 (0.2) E.U./dL unknown) (unknown) (no (unknown) (unknown) Urine WBC (units (unkn own) date) (0-5/HPF) unknown) (unknown) (no (unknown) (unknown) Urine WBC 0-1/hpf (units (unknown) date) (0-5/HPF) unknown) (unknown) (no (unknown) (unknown) Urine pH (4.5-8.0) (units (unknown) date) unknown) (unknown) (no (unknown) (unknown) Urine pH 6.0 (units (u nknown) date) (4.5-8.0) unknown) (unknown) (no (unknown) (unknown) Vital Signs - 8 hr (units (unknown) date) unknown) (unknown) (no (unknown) (unknown) Vital Signs (units (un known) date) unknown) (unknown) (no (unknown) (unknown) Vital signs: (units (u nknown) date) unknown) (unknown) (no (unknown) (unknown) WBC (4.5-11.0) (units (unknown) date) X103/uL unknown) (unknown) (no (unknown) (unknown) WBC 5.3 (4.5-11.0) (units (unknown) date) X103/uL unknown) (unknown) (no (unknown) (unknown) [Embedded Image (units (unknown) date) Not Available] unknown) (unknown) (no (unknown) (unknown) a psychiatrist or (units (unknown) date) prescribing unknown) therapist, this is the person who prescribes her (unknown) (no (unknown) (unknown) able to contact (units (unknown) date) for ride home and unknown) see if she can arrange for somebody to stay (unknown) (no (unknown) (unknown) abnormalities. (units (unknown) date) Near clear signs of unknown) alcohol withdrawal (unknown) (no (unknown) (unknown) additional (units (unk nown) date) outpatient follow unknown) up (unknown) (no (unknown) (unknown) afternoon with a (units (unknown) date) call to confirm the unknown) time for that appointment. I am concerned (unknown) (no (unknown) (unknown) again. (units (unkno wn) date) unknown) (unknown) (no (unknown) (unknown) alcohol intake (units (unknown) date) frequency: 3 or unknown) more drinks per day (unknown) (no (unknown) (unknown) alcohol intake: (units (unknown) date) current unknown) (unknown) (no (unknown) (unknown) alcohol use, (units (u nknown) date) unknown) (unknown) (no (unknown) (unknown) all of her flu (units (unknown) date) vaccine and acutely unknown) intoxicated. After discussion with poison (unknown) (no (unknown) (unknown) bed. She believes (units (unknown) date) she has an unknown) appointment with her therapist (unsure if this is (unknown) (no (unknown) (unknown) been reviewed with (units (unknown) date) patient as well as unknown) indications for ED re-evaluation and (unknown) (no (unknown) (unknown) being discharged (units (unknown) date) from the emergency unknown) department around noon she moved into her (unknown) (no (unknown) (unknown) brought in by a (units (unknown) date) friend to [facility] around 8:15 p.m. with (unknown) (no (unknown) (unknown) chronic alcohol (units (unknown) date) use unknown) (unknown) (no (unknown) (unknown) cleared and then (units (unknown) date) seen by social unknown) workers the morning of 03/27. At that time she (unknown) (no (unknown) (unknown) complaints of (units ( unknown) date) acute alcohol unknown) intoxication and suicidal ideation without discrete (unknown) (no (unknown) (unknown) condominium and (units (unknown) date) moving out of the unknown) home shared with her current . She is (unknown) (no (unknown) (unknown) control she was (units (unknown) date) observed in the unknown) emergency department for 8 hours medically (unknown) (no (unknown) (unknown) enough to end up (units (unknown) date) in the emergency unknown) department unless than 8 hours is unclear and (unknown) (no (unknown) (unknown) fluconazole 150 mg (units (unknown) date) tablet 150 mg PO unknown) DAILY #1 tab 11/03/21 (unknown) (no (unknown) (unknown) fluconazole (units (un known) date) [Diflucan] 150 mg unknown) tablet (unknown) (no (unknown) (unknown) fluvoxamine 50 mg (units (unknown) date) tablet 50 mg DAILY unknown) 10/24/21 11/24/21 (unknown) (no (unknown) (unknown) fluvoxamine 50 mg (units (unknown) date) tablet unknown) (unknown) (no (unknown) (unknown) fluvoxamine) via (units (unknown) date) telemedicine at unknown) 1:00 p.m. on the . She states that she (unknown) (no (unknown) (unknown) had no fever, (units ( unknown) date) cough, chills, unknown) abdominal pain. It is not complaining of headache. (unknown) (no (unknown) (unknown) household members: (units (unknown) date) spouse and children unknown) (unknown) (no (unknown) (unknown) hydroxyzine HCl 25 (units (unknown) date) mg tablet 25 mg PO unknown) BEDTIME PRN sleep #7 tabs 10/24/21 (unknown) (no (unknown) (unknown) hydroxyzine HCl 25 (units (unknown) date) mg tablet unknown) (unknown) (no (unknown) (unknown) including her 8 (units (unknown) date) hour observation unknown) stay and social Work consult are reviewed (unknown) (no (unknown) (unknown) insight overall (units (unknown) date) unknown) (unknown) (no (unknown) (unknown) instability (units (un known) date) unknown) (unknown) (no (unknown) (unknown) intoxicated with (units (unknown) date) alcohol and unknown) suicidal. She was seen at [facility] on 03/26 (unknown) (no (unknown) (unknown) is able to speak (units (unknown) date) in complete unknown) sentences (unknown) (no (unknown) (unknown) is not clear to me (units (unknown) date) that she is safe to unknown) be discharged home with current social (unknown) (no (unknown) (unknown) issues surrounding (units (unknown) date) her ex-, unknown) oldest children and current with whom (unknown) (no (unknown) (unknown) losartan 50 mg (units (unknown) date) tablet 50 mg PO unknown) DAILY 10/17/21 11/24/21 (unknown) (no (unknown) (unknown) losartan 50 mg (units (unknown) date) tablet unknown) (unknown) (no (unknown) (unknown) needs external (units (unknown) date) validation. unknown) (unknown) (no (unknown) (unknown) new condominium. (units (unknown) date) How she managed to unknown) do all of that and become intoxicated (unknown) (no (unknown) (unknown) not sure if there (units (unknown) date) simply unknown) or truly heading for divorce. There (unknown) (no (unknown) (unknown) of the night (units (u nknown) date) before had her unknown) psychiatry televideo appointment moved to March (unknown) (no (unknown) (unknown) own bed?. Today, (units (unknown) date) she reports no unknown) pills or other medications, no cutting. She is (unknown) (no (unknown) (unknown) plan and no (units (un known) date) reports of taking unknown) any additional pills. (unknown) (no (unknown) (unknown) plan. When (units (unk nown) date) discussing options unknown) for her later in the evening after she would (unknown) (no (unknown) (unknown) prescription (units (u nknown) date) antidepressants and unknown) discharge from the hospital less than 8 hours (unknown) (no (unknown) (unknown) prior to (units (unkno wn) date) presentation at unknown) [facility] ([facility]) (no (unknown) (unknown) separation from (units (unknown) date) her , unknown) question of alcohol use disorder, overall social (unknown) (no (unknown) (unknown) she ended up back (units (unknown) date) in the emergency unknown) room in 8 hours with similar suicidal (unknown) (no (unknown) (unknown) she is . (units (unknown) date) When she wakes up unknown) again, we will see what friends she is (unknown) (no (unknown) (unknown) significant (units (un known) date) withdrawal. She unknown) still seems moderately despondent but denies any (unknown) (no (unknown) (unknown) situational (units (un known) date) disturbance, unknown) suicidal ideation, suicide attempt (unknown) (no (unknown) (unknown) sobered she states (units (unknown) date) she is tired and unknown) simply wants to go home and sleep in her own (unknown) (no (unknown) (unknown) speech, no (units (unk nown) date) auditory or visual unknown) hallucinations (unknown) (no (unknown) (unknown) states that she is (units (unknown) date) been struggling unknown) with multiple acute situational stressors. (unknown) (no (unknown) (unknown) suicidal or (units (un known) date) homicidal ideation. unknown) Plan is to go home, take shower, had something (unknown) (no (unknown) (unknown) that included in (units (unknown) date) the HPI. unknown) (unknown) (no (unknown) (unknown) that she had this (units (unknown) date) exact same unknown) presentation for the social services designee at would be and (unknown) (no (unknown) (unknown) thoughts she was (units (unknown) date) unable to give a unknown) reasonable answer and simply states she wants (unknown) (no (unknown) (unknown) to eat and keep (units (unknown) date) her appointment unknown) with her therapist at 1:00 p.m. later this (unknown) (no (unknown) (unknown) to go home and (units (unknown) date) ?take a hot shower, unknown) eat and drink something and go to bed in her (unknown) (no (unknown) (unknown) updating her on (units (unknown) date) any medical unknown) abnormalities. She is currently moving into her own (unknown) (no (unknown) (unknown) wants to be home (units (unknown) date) to have dinner with unknown) her son and her . When asked how (unknown) (no (unknown) (unknown) was felt to be (units (unknown) date) clinically sober, unknown) feeling better did not have much recollection (unknown) (no (unknown) (unknown) with her for the (units (unknown) date) day to make sure unknown) that she is safe and does not began drinking (unknown) (no (unknown) (unknown) within 8 hours was (units (unknown) date) again drinking and unknown) considering killing herself. 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 At this (units (unknown) date) point I do not unknown) believe that she is gravely disabled however it Result panel 114 (unknown) (no (unknown) (unknown) (no value) (units (unk nown) date) unknown) (unknown) (no (unknown) (unknown) <Cristian Leigh, (units (unknown) date) - Last Filed: unknown) 03/28/22 07:48> (unknown) (no (unknown) (unknown) <Yajaira Rose (units (unknown) date) - Last Filed: unknown) 03/28/22 03:02> (unknown) (no (unknown) (unknown) (Diflucan) (units (unk nown) date) unknown) (unknown) (no (unknown) (unknown) 00:00 (units (unkno wn) date) unknown) (unknown) (no (unknown) (unknown) 00:30 03/28/22 (units (unknown) date) unknown) (unknown) (no (unknown) (unknown) 00:44 (units (unkno wn) date) unknown) (unknown) (no (unknown) (unknown) 03/27/22 03/27/22 (units (unknown) date) 03/27/22 unknown) Range/Units (unknown) (no (unknown) (unknown) 03/27/22 03/27/22 (units (unknown) date) 03/28/22 unknown) Range/Units (unknown) (no (unknown) (unknown) 03/27/22 21:19 (units (unknown) date) unknown) (unknown) (no (unknown) (unknown) 03/27/22 (units (unkno wn) date) unknown) (unknown) (no (unknown) (unknown) 03/28/22 02:09 (units (unknown) date) unknown) (unknown) (no (unknown) (unknown) 03/28/22 (units (unkno wn) date) unknown) (unknown) (no (unknown) (unknown) 04:00 03/28/22 (units (unknown) date) unknown) (unknown) (no (unknown) (unknown) 150 mg PO DAILY (units (unknown) date) Qty: 1 1RF unknown) (unknown) (no (unknown) (unknown) 19, is apparently (units (unknown) date) in the hospital and unknown) wants ?nothing to do with her? including (unknown) (no (unknown) (unknown) 20:23 20:30 21:19 (units (unknown) date) unknown) (unknown) (no (unknown) (unknown) 21:19 21:19 02:09 (units (unknown) date) unknown) (unknown) (no (unknown) (unknown) 23 with an overdose (units (unknown) date) with reportedly unknown) benzodiazepines including Valium and Ativan, (unknown) (no (unknown) (unknown) 23:56 03/27/22 (units (unknown) date) unknown) (unknown) (no (unknown) (unknown) 23:56 03/28/22 (units (unknown) date) unknown) (unknown) (no (unknown) (unknown) 24 was felt to (units (unknown) date) be forward thinking unknown) and planning and safe for discharge home. (unknown) (no (unknown) (unknown) 25 mg PO BEDTIME (units (unknown) date) PRN (Reason: sleep) unknown) Qty: 7 0RF (unknown) (no (unknown) (unknown) 3am she has gone (units (unknown) date) back to sleep and I unknown) am not going to disturb her at this time. (unknown) (no (unknown) (unknown) 41-year-old woman (units (unknown) date) with a history of unknown) depression was brought in by her friend (unknown) (no (unknown) (unknown) 50 mg DAILY (units (un known) date) unknown) (unknown) (no (unknown) (unknown) 50 mg PO DAILY (units (unknown) date) unknown) (unknown) (no (unknown) (unknown) 8-year-old son has (units (unknown) date) said he wants to unknown) live with both of them. She said that after (unknown) (no (unknown) (unknown) ALT (<35) IU/L (units (unknown) date) unknown) (unknown) (no (unknown) (unknown) ALT 28 (<35) IU/L (units (unknown) date) unknown) (unknown) (no (unknown) (unknown) AST (14-36) IU/L (units (unknown) date) unknown) (unknown) (no (unknown) (unknown) AST 38 H (14-36) (units (unknown) date) IU/L unknown) (unknown) (no (unknown) (unknown) Abdomen: Soft, (units (unknown) date) nontender, good unknown) bowel tones, no flank pain (unknown) (no (unknown) (unknown) Abnormal uterine (units (unknown) date) bleeding (AUB) unknown) (unknown) (no (unknown) (unknown) Acetaminophen < 10 (units (unknown) date) (10-30) ug/mL unknown) (unknown) (no (unknown) (unknown) Acetaminophen (units ( unknown) date) (10-30) ug/mL unknown) (unknown) (no (unknown) (unknown) Age/Sex: 41 / F (units (unknown) date) unknown) (unknown) (no (unknown) (unknown) Albumin (3.5-5.0) (units (unknown) date) g/dL unknown) (unknown) (no (unknown) (unknown) Albumin 4.0 (units (un known) date) (3.5-5.0) g/dL unknown) (unknown) (no (unknown) (unknown) Albumin/Globulin (units (unknown) date) Ratio (1.0-2.8) unknown) (unknown) (no (unknown) (unknown) Albumin/Globulin (units (unknown) date) Ratio 1.2 (1.0-2.8) unknown) (unknown) (no (unknown) (unknown) Alcohol (units (unkno wn) date) intoxication, Major unknown) depression, Acute situational disturbance, (unknown) (no (unknown) (unknown) Alkaline (units (unkno wn) date) Phosphatase unknown) (38-126) U/L (unknown) (no (unknown) (unknown) Alkaline (units (unkno wn) date) Phosphatase 52 unknown) (38-126) U/L (unknown) (no (unknown) (unknown) Allergies (units (unkn own) date) unknown) (unknown) (no (unknown) (unknown) Allergy/AdvReac (units (unknown) date) Type Severity unknown) Reaction Status Date / Time (unknown) (no (unknown) (unknown) Anesthesia (units (unk nown) date) unknown) (unknown) (no (unknown) (unknown) Apparently her (units (unknown) date) ex- and 2 unknown) older children live in [place], the oldest son, (unknown) (no (unknown) (unknown) BUN (7-17) mg/dL (units (unknown) date) unknown) (unknown) (no (unknown) (unknown) BUN 15 (7-17) (units ( unknown) date) mg/dL unknown) (unknown) (no (unknown) (unknown) BUN/Creatinine (units (unknown) date) Ratio (6-22) unknown) (unknown) (no (unknown) (unknown) BUN/Creatinine (units (unknown) date) Ratio 20.3 (6-22) unknown) (unknown) (no (unknown) (unknown) Baso # (Auto) (units ( unknown) date) (0-100) /uL unknown) (unknown) (no (unknown) (unknown) Baso # (Auto) 100 (units (unknown) date) (0-100) /uL unknown) (unknown) (no (unknown) (unknown) Baso % (Auto) (units ( unknown) date) (0-2) % unknown) (unknown) (no (unknown) (unknown) Baso % (Auto) 1.3 (units (unknown) date) (0-2) % unknown) (unknown) (no (unknown) (unknown) Blood Pressure (units (unknown) date) 102/60 unknown) (unknown) (no (unknown) (unknown) Blood Pressure (units (unknown) date) 114/79 114/79 unknown) (unknown) (no (unknown) (unknown) Blood Pressure (units (unknown) date) 99/55 L 03/27/22 unknown) 20:15 (unknown) (no (unknown) (unknown) Blood Pressure (units (unknown) date) unknown) (unknown) (no (unknown) (unknown) Breast cancer (units ( unknown) date) unknown) (unknown) (no (unknown) (unknown) Breast cyst (units (un known) date) () unknown) (unknown) (no (unknown) (unknown) CBC shows no (units (u nknown) date) leukocytosis but unknown) she does have a mild macrocytosis consistent with (unknown) (no (unknown) (unknown) CC: Acute alcohol (units (unknown) date) intoxication with unknown) suicidal ideation (unknown) (no (unknown) (unknown) Calcium (8.4-10.2) (units (unknown) date) mg/dL unknown) (unknown) (no (unknown) (unknown) Calcium 8.7 (units (un known) date) (8.4-10.2) mg/dL unknown) (unknown) (no (unknown) (unknown) Carbon Dioxide (units (unknown) date) (22-32) mmol/L unknown) (unknown) (no (unknown) (unknown) Carbon Dioxide 21 (units (unknown) date) L (22-32) mmol/L unknown) (unknown) (no (unknown) (unknown) Cardiac: Regular (units (unknown) date) rate and rhythm no unknown) murmurs no bruits (unknown) (no (unknown) (unknown) Chemistries are (units (unknown) date) reassuring with unknown) minimally elevated AST again consistent with (unknown) (no (unknown) (unknown) Chief Complaint: (units (unknown) date) Psychiatric unknown) Symptoms (unknown) (no (unknown) (unknown) Chloride (98-107) (units (unknown) date) mmol/L unknown) (unknown) (no (unknown) (unknown) Chloride 106 (units (u nknown) date) (98-107) mmol/L unknown) (unknown) (no (unknown) (unknown) Clinical (units (unkno wn) date) Impression: unknown) (unknown) (no (unknown) (unknown) Complicating (units (u nknown) date) co-morbidities: unknown) Similar with overdose with benzodiazepines and her (unknown) (no (unknown) (unknown) Consultations: (units (unknown) date) unknown) (unknown) (no (unknown) (unknown) Corroborating (units ( unknown) date) data: unknown) (unknown) (no (unknown) (unknown) Course Narrative: (units (unknown) date) unknown) (unknown) (no (unknown) (unknown) Course (units (unkno wn) date) unknown) (unknown) (no (unknown) (unknown) Creatinine (units (unk nown) date) (0.52-1.04) mg/dL unknown) (unknown) (no (unknown) (unknown) Creatinine 0.74 (units (unknown) date) (0.52-1.04) mg/dL unknown) (unknown) (no (unknown) (unknown) : 1980 (units (unknown) date) Acct:[id number] unknown) (unknown) (no (unknown) (unknown) Data collected (units (unknown) date) from: patient, unknown) (unknown) (no (unknown) (unknown) Date of Service: (units (unknown) date) 03/27/22 unknown) (unknown) (no (unknown) (unknown) Departure (units (unkn own) date) unknown) (unknown) (no (unknown) (unknown) Depression with (units (unknown) date) suicidal ideation unknown) (unknown) (no (unknown) (unknown) Depression (units (unk nown) date) unknown) (unknown) (no (unknown) (unknown) Differential (units (u nknown) date) considered: Major unknown) depression, alcohol use disorder, acute (unknown) (no (unknown) (unknown) Discharge Plan (units (unknown) date) unknown) (unknown) (no (unknown) (unknown) Discontinued (units (u nknown) date) Medications unknown) (unknown) (no (unknown) (unknown) Discussion: (units (un known) date) unknown) (unknown) (no (unknown) (unknown) Disposition: see (units (unknown) date) below, along with unknown) detailed discharge instructions that have (unknown) (no (unknown) (unknown) Documented By: AP (units (unknown) date) unknown) (unknown) (no (unknown) (unknown) ED Orders (units (unkn own) date) unknown) (unknown) (no (unknown) (unknown) ER Physician: (units ( unknown) date) Cristian Leigh MD unknown) (unknown) (no (unknown) (unknown) ETOH [Ethanol (units ( unknown) date) (ETOH)] Stat unknown) (unknown) (no (unknown) (unknown) Emergency Report (units (unknown) date) unknown) (unknown) (no (unknown) (unknown) Eos # (Auto) (units (u nknown) date) (0-450) /uL unknown) (unknown) (no (unknown) (unknown) Eos # (Auto) 200 (units (unknown) date) (0-450) /uL unknown) (unknown) (no (unknown) (unknown) Eos % (Auto) (2-4) (units (unknown) date) % unknown) (unknown) (no (unknown) (unknown) Eos % (Auto) 2.9 (units (unknown) date) (2-4) % unknown) (unknown) (no (unknown) (unknown) Estimated GFR > 60 (units (unknown) date) (>60) mL/min unknown) (unknown) (no (unknown) (unknown) Estimated GFR (units ( unknown) date) (>60) mL/min unknown) (unknown) (no (unknown) (unknown) Ethyl Alcohol ( - (units (unknown) date) 10) mg/dL unknown) (unknown) (no (unknown) (unknown) Ethyl Alcohol 124 (units (unknown) date) H < 10 ( - 10) unknown) mg/dL (unknown) (no (unknown) (unknown) Exam documented (units (unknown) date) above, pertinent unknown) findings include: Fatigued appearing, poor (unknown) (no (unknown) (unknown) Exam (units (unkno wn) date) unknown) (unknown) (no (unknown) (unknown) Extremities: No (units (unknown) date) trauma, well unknown) perfused, no evidence of self cutting (unknown) (no (unknown) (unknown) Family History (units (unknown) date) (Updated 10/02/21 @ unknown) 19:54 by Alysia Hernandez MD) (unknown) (no (unknown) (unknown) Free T4 (units (unkno wn) date) (0.78-2.19) ng/dL unknown) (unknown) (no (unknown) (unknown) Free T4 0.89 (units (u nknown) date) (0.78-2.19) ng/dL unknown) (unknown) (no (unknown) (unknown) Full and (units (unkno wn) date) symmetrical air unknown) movement (unknown) (no (unknown) (unknown) General (units (unkno wn) date) unknown) (unknown) (no (unknown) (unknown) General: Appears (units (unknown) date) Emotionally and unknown) physically exhausted, moderate eye contact she (unknown) (no (unknown) (unknown) Globulin (1.7-4.1) (units (unknown) date) g/dL unknown) (unknown) (no (unknown) (unknown) Globulin 3.3 (units (u nknown) date) (1.7-4.1) g/dL unknown) (unknown) (no (unknown) (unknown) Glucose (70-100) (units (unknown) date) mg/dL unknown) (unknown) (no (unknown) (unknown) Glucose 79 (units (unk nown) date) (70-100) mg/dL unknown) (unknown) (no (unknown) (unknown) HEENT: Moist (units (u nknown) date) mucous membranes, unknown) normal sclera with reactive pupils, (unknown) (no (unknown) (unknown) HPI - Psych (units (un known) date) unknown) (unknown) (no (unknown) (unknown) HPI Narrative: (units (unknown) date) unknown) (unknown) (no (unknown) (unknown) Hct (36-46) % (units ( unknown) date) unknown) (unknown) (no (unknown) (unknown) Hct 39.1 (36-46) % (units (unknown) date) unknown) (unknown) (no (unknown) (unknown) Herpes (-2000) (units (unknown) date) unknown) (unknown) (no (unknown) (unknown) Hgb (12.0-16.0) (units (unknown) date) g/dL unknown) (unknown) (no (unknown) (unknown) Hgb 13.3 (units (unkno wn) date) (12.0-16.0) g/dL unknown) (unknown) (no (unknown) (unknown) History of Present (units (unknown) date) Illness unknown) (unknown) (no (unknown) (unknown) Home Medications (units (unknown) date) unknown) (unknown) (no (unknown) (unknown) Hyperlipidemia (units (unknown) date) unknown) (unknown) (no (unknown) (unknown) Hypertension (units (u nknown) date) unknown) (unknown) (no (unknown) (unknown) I would feel much (units (unknown) date) more comfortable if unknown) she had a chance to talk to our social (unknown) (no (unknown) (unknown) Initial Vital (units ( unknown) date) Signs unknown) (unknown) (no (unknown) (unknown) Initial Vital (units ( unknown) date) Signs: unknown) (unknown) (no (unknown) (unknown) [facility] (units (unknown) date) [address] unknown) [place] [address] (unknown) (no (unknown) (unknown) March 28, 2022 (units (unknown) date) at 7:00 a.m.. Sign unknown) out from Dr. Stark, patient awaiting for (unknown) (no (unknown) (unknown) Lab Data (units (unkno wn) date) unknown) (unknown) (no (unknown) (unknown) Lab Results (units (un known) date) unknown) (unknown) (no (unknown) (unknown) Lab Test results (units (unknown) date) independently unknown) reviewed as above. Pertinent findings: (unknown) (no (unknown) (unknown) Label Comments: (units (unknown) date) unknown) (unknown) (no (unknown) (unknown) Labs: (units (unkno wn) date) unknown) (unknown) (no (unknown) (unknown) Last Admin: (units (un known) date) 03/28/22 03:55 unknown) Dose: 21 mg (unknown) (no (unknown) (unknown) Lymph # (Auto) (units (unknown) date) (9809-4057) /uL unknown) (unknown) (no (unknown) (unknown) Lymph # (Auto) (units (unknown) date) 1500 (8168-1218) unknown) /uL (unknown) (no (unknown) (unknown) Lymph % (Auto) (units (unknown) date) (25-40) % unknown) (unknown) (no (unknown) (unknown) Lymph % (Auto) (units (unknown) date) 28.5 (25-40) % unknown) (unknown) (no (unknown) (unknown) [id number] (units (unk nown) date) unknown) (unknown) (no (unknown) (unknown) MCH (26-34) PG (units (unknown) date) unknown) (unknown) (no (unknown) (unknown) MCH 35.0 H (26-34) (units (unknown) date) PG unknown) (unknown) (no (unknown) (unknown) MCHC (30-36) % (units (unknown) date) unknown) (unknown) (no (unknown) (unknown) MCHC 34.0 (30-36) (units (unknown) date) % unknown) (unknown) (no (unknown) (unknown) MCV (80-100) fL (units (unknown) date) unknown) (unknown) (no (unknown) (unknown) MCV 103.0 H (units (un known) date) (80-100) fL unknown) (unknown) (no (unknown) (unknown) MDM - Psych (units (un known) date) unknown) (unknown) (no (unknown) (unknown) MDM Narrative (units ( unknown) date) unknown) (unknown) (no (unknown) (unknown) Medical History (units (unknown) date) (Updated 03/28/22 @ unknown) 03:02 by Yajaira Rose MD) (unknown) (no (unknown) (unknown) Medical decision (units (unknown) date) making narrative: unknown) (unknown) (no (unknown) (unknown) Medical records (units (unknown) date) reviewed: Records unknown) from [facility] Emergency Department (unknown) (no (unknown) (unknown) Medication (units (unk nown) date) Instructions unknown) Recorded Confirmed (unknown) (no (unknown) (unknown) Medication (units (unk nown) date) Instructions unknown) Recorded (unknown) (no (unknown) (unknown) Mental health (units ( unknown) date) problem unknown) (unknown) (no (unknown) (unknown) Rubina Mullins PA-C (units (unknown) date) [Primary Care unknown) Provider] (unknown) (no (unknown) (unknown) Mode of arrival: (units (unknown) date) Ambulatory unknown) (unknown) (no (unknown) (unknown) [place] # (Auto) (units ( unknown) date) (0-900) /uL unknown) (unknown) (no (unknown) (unknown) [place] # (Auto) 500 (units (unknown) date) (0-900) /uL unknown) (unknown) (no (unknown) (unknown) [place] % (Auto) (units ( unknown) date) (3-14) % unknown) (unknown) (no (unknown) (unknown) [place] % (Auto) 9.7 (units (unknown) date) (3-14) % unknown) (unknown) (no (unknown) (unknown) Mother Diabetes (units (unknown) date) mellitus unknown) (unknown) (no (unknown) (unknown) Narrative: (units (unk nown) date) unknown) (unknown) (no (unknown) (unknown) Neurologic: (units (un known) date) Grossly unknown) neurologically intact with no obvious asymmetries or (unknown) (no (unknown) (unknown) Neut # (Auto) (units ( unknown) date) (7516-4216) /uL unknown) (unknown) (no (unknown) (unknown) Neut # (Auto) 3100 (units (unknown) date) (3962-4168) /uL unknown) (unknown) (no (unknown) (unknown) Neut % (Auto) (units ( unknown) date) (50-75) % unknown) (unknown) (no (unknown) (unknown) Neut % (Auto) 57.6 (units (unknown) date) (50-75) % unknown) (unknown) (no (unknown) (unknown) Nicotine (Nicotine (units (unknown) date) 21 Mg Patch) 21 mg unknown) TOP NOW ONE (unknown) (no (unknown) (unknown) No Action (units (unkn own) date) unknown) (unknown) (no (unknown) (unknown) No Known Drug (units ( unknown) date) Allergies Allergy unknown) Verified 11/24/21 10:21 (unknown) (no (unknown) (unknown) No evidence of (units (unknown) date) thyroid abnormality unknown) (unknown) (no (unknown) (unknown) No significant (units (unknown) date) medical problems unknown) (unknown) (no (unknown) (unknown) Once she has (units (u nknown) date) sobered slightly we unknown) are able to have a reasonable discussion. She (unknown) (no (unknown) (unknown) Ordered: (units (unkno wn) date) unknown) (unknown) (no (unknown) (unknown) Orders (units (unkno wn) date) unknown) (unknown) (no (unknown) (unknown) Oxygen Delivery (units (unknown) date) Method 03/27/22 unknown) 20:15 (unknown) (no (unknown) (unknown) Oxygen Delivery (units (unknown) date) Method Room Air unknown) (unknown) (no (unknown) (unknown) Oxygen Delivery (units (unknown) date) Method unknown) (unknown) (no (unknown) (unknown) PTSD (units (unkno wn) date) (post-traumatic unknown) stress disorder) (unknown) (no (unknown) (unknown) Patient History (units (unknown) date) unknown) (unknown) (no (unknown) (unknown) Patient went home, (units (unknown) date) 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 However drank alcohol again with (unknown) (no (unknown) (unknown) Patient: (units (unkno wn) date) Cate Holcomb A unknown) MR#: (unknown) (no (unknown) (unknown) Pelvic pain (units (un known) date) unknown) (unknown) (no (unknown) (unknown) Plt Count (units (unkn own) date) (150-400) X103/uL unknown) (unknown) (no (unknown) (unknown) Plt Count 254 (units ( unknown) date) (150-400) X103/uL unknown) (unknown) (no (unknown) (unknown) Potassium (units (unkn own) date) (3.4-5.1) mmol/L unknown) (unknown) (no (unknown) (unknown) Potassium 3.9 (units ( unknown) date) (3.4-5.1) mmol/L unknown) (unknown) (no (unknown) (unknown) Prescriptions: (units (unknown) date) unknown) (unknown) (no (unknown) (unknown) Previous Rx's (units ( unknown) date) unknown) (unknown) (no (unknown) (unknown) Prozac overdose. (units (unknown) date) Was discharge from unknown) that facility. Patient was not detainable. (unknown) (no (unknown) (unknown) Psoriasis (units (unkn own) date) unknown) (unknown) (no (unknown) (unknown) Psych: Poor (units (un known) date) overall insight, unknown) significant denial, poor eye contact, fluent (unknown) (no (unknown) (unknown) Pulse Oximetry 96 (units (unknown) date) 03/27/22 20:15 unknown) (unknown) (no (unknown) (unknown) Pulse Oximetry 96 (units (unknown) date) 98 unknown) (unknown) (no (unknown) (unknown) Pulse Oximetry 98 (units (unknown) date) 96 unknown) (unknown) (no (unknown) (unknown) Pulse Oximetry 98 (units (unknown) date) unknown) (unknown) (no (unknown) (unknown) Pulse Rate 64 (units ( unknown) date) 03/27/22 20:15 unknown) (unknown) (no (unknown) (unknown) Pulse Rate 67 72 (units (unknown) date) unknown) (unknown) (no (unknown) (unknown) Pulse Rate 70 68 (units (unknown) date) unknown) (unknown) (no (unknown) (unknown) Pulse Rate 75 (units ( unknown) date) unknown) (unknown) (no (unknown) (unknown) RBC (4.0-5.2) (units ( unknown) date) X106/uL unknown) (unknown) (no (unknown) (unknown) RBC 3.80 L (units (unk nown) date) (4.0-5.2) X106/uL unknown) (unknown) (no (unknown) (unknown) RDW (11.6-14.8) % (units (unknown) date) unknown) (unknown) (no (unknown) (unknown) RDW 14.0 (units (unkno wn) date) (11.6-14.8) % unknown) (unknown) (no (unknown) (unknown) Re-evaluations: (units (unknown) date) Patient is unknown) clinically and medically sober with no signs of (unknown) (no (unknown) (unknown) Referrals: (units (unk nown) date) unknown) (unknown) (no (unknown) (unknown) Related Data (units (u nknown) date) unknown) (unknown) (no (unknown) (unknown) Remainder of (units (u nknown) date) complete review of unknown) systems is otherwise unremarkable except for (unknown) (no (unknown) (unknown) Repeat alcohol (units (unknown) date) level at 2:30 a.m. unknown) is less than 0. (unknown) (no (unknown) (unknown) Respiratory Rate (units (unknown) date) 18 03/27/22 20:15 unknown) (unknown) (no (unknown) (unknown) Respiratory Rate (units (unknown) date) 18 unknown) (unknown) (no (unknown) (unknown) Respiratory Rate (units (unknown) date) unknown) (unknown) (no (unknown) (unknown) Respiratory: Lungs (units (unknown) date) are clear to unknown) auscultation, no wheezing no rales no rhonchi. (unknown) (no (unknown) (unknown) Review of Systems (units (unknown) date) unknown) (unknown) (no (unknown) (unknown) Salicylates < 1.0 (units (unknown) date) (<20) mg/dL unknown) (unknown) (no (unknown) (unknown) Salicylates (<20) (units (unknown) date) mg/dL unknown) (unknown) (no (unknown) (unknown) Severe (units (unkno wn) date) dysmenorrhea unknown) (unknown) (no (unknown) (unknown) She simply states (units (unknown) date) that she wants to unknown) harm herself but does not have a discrete (unknown) (no (unknown) (unknown) She was discharged (units (unknown) date) from would be unknown) emergency department around noon and was (unknown) (no (unknown) (unknown) Signed By: (units (unk nown) date) unknown) (unknown) (no (unknown) (unknown) Skin: Warm and (units (unknown) date) dry, no rashes unknown) (unknown) (no (unknown) (unknown) Smoking Status: (units (unknown) date) Former smoker unknown) (unknown) (no (unknown) (unknown) Social History (units (unknown) date) (Reviewed 02/18/20 unknown) @ 12:52 by EDDIE Castillo) (unknown) (no (unknown) (unknown) Social (units (unkno wn) date) determinants of unknown) health that may influence the patients condition: Recent (unknown) (no (unknown) (unknown) Sodium (137-145) (units (unknown) date) mmol/L unknown) (unknown) (no (unknown) (unknown) Sodium 140 (units (unk nown) date) (137-145) mmol/L unknown) (unknown) (no (unknown) (unknown) Source: patient (units (unknown) date) unknown) (unknown) (no (unknown) (unknown) Stated Complaint: (units (unknown) date) suicidal unknown) (unknown) (no (unknown) (unknown) Status post (units (un known) date) laparoscopic unknown) supracervical hysterectomy (10/27/21) (unknown) (no (unknown) (unknown) Stop: 03/28/22 (units (unknown) date) 03:41 unknown) (unknown) (no (unknown) (unknown) Substance Use (units ( unknown) date) Type: does not use unknown) (unknown) (no (unknown) (unknown) Surgical History (units (unknown) date) (Updated 11/25/21 @ unknown) 22:07 by Alysia Hernandez MD) (unknown) (no (unknown) (unknown) TAKE 1 TABLET BY (units (unknown) date) MOUTH EVERY EVENING unknown) (unknown) (no (unknown) (unknown) TSH (0.47-4.68) (units (unknown) date) uIU/mL unknown) (unknown) (no (unknown) (unknown) TSH 1.17 (units (unkno wn) date) (0.47-4.68) uIU/mL unknown) (unknown) (no (unknown) (unknown) Temperature 97.9 F (units (unknown) date) 03/27/22 20:15 unknown) (unknown) (no (unknown) (unknown) Time Seen by (units (u nknown) date) Provider: 03/27/22 unknown) 22:28 (unknown) (no (unknown) (unknown) Total Bilirubin (units (unknown) date) (0.2-1.3) mg/dL unknown) (unknown) (no (unknown) (unknown) Total Bilirubin (units (unknown) date) 0.4 (0.2-1.3) mg/dL unknown) (unknown) (no (unknown) (unknown) Total Protein (units ( unknown) date) (6.3-8.2) g/dL unknown) (unknown) (no (unknown) (unknown) Total Protein 7.3 (units (unknown) date) (6.3-8.2) g/dL unknown) (unknown) (no (unknown) (unknown) Treatments: (units (un known) date) Sobering unknown) (unknown) (no (unknown) (unknown) U Benzodiazepines (units (unknown) date) Scrn (Negative) unknown) (unknown) (no (unknown) (unknown) U Benzodiazepines (units (unknown) date) Scrn Positive H unknown) (Negative) (unknown) (no (unknown) (unknown) U Marijuana (THC) (units (unknown) date) Screen (Negative) unknown) (unknown) (no (unknown) (unknown) U Marijuana (THC) (units (unknown) date) Screen Negative unknown) (Negative) (unknown) (no (unknown) (unknown) U Methamphetamines (units (unknown) date) Scrn (Negative) unknown) (unknown) (no (unknown) (unknown) U Methamphetamines (units (unknown) date) Scrn Negative unknown) (Negative) (unknown) (no (unknown) (unknown) U Opiates 300ng/mL (units (unknown) date) cut (Negative) unknown) (unknown) (no (unknown) (unknown) U Opiates 300ng/mL (units (unknown) date) cut Negative unknown) (Negative) (unknown) (no (unknown) (unknown) U Tricyclic (units (un known) date) Antidepress unknown) (Negative) (unknown) (no (unknown) (unknown) U Tricyclic (units (un known) date) Antidepress unknown) Negative (Negative) (unknown) (no (unknown) (unknown) Ur Amphetamines (units (unknown) date) Screen (Negative) unknown) (unknown) (no (unknown) (unknown) Ur Amphetamines (units (unknown) date) Screen Negative unknown) (Negative) (unknown) (no (unknown) (unknown) Ur Barbiturates (units (unknown) date) Screen (Negative) unknown) (unknown) (no (unknown) (unknown) Ur Barbiturates (units (unknown) date) Screen Negative unknown) (Negative) (unknown) (no (unknown) (unknown) Ur Culture (units (unk nown) date) Indicated? Cult not unknown) indicated (unknown) (no (unknown) (unknown) Ur Culture (units (unk nown) date) Indicated? unknown) (unknown) (no (unknown) (unknown) Ur Leukocyte (units (u nknown) date) Esterase (NEGATIVE) unknown) (unknown) (no (unknown) (unknown) Ur Leukocyte (units (u nknown) date) Esterase Negative unknown) (NEGATIVE) (unknown) (no (unknown) (unknown) Ur MDMA Scrn (units (u nknown) date) (Ecstasy) unknown) (Negative) (unknown) (no (unknown) (unknown) Ur MDMA Scrn (units (u nknown) date) (Ecstasy) Negative unknown) (Negative) (unknown) (no (unknown) (unknown) Ur Oxycodone (units (u nknown) date) Screen (Negative) unknown) (unknown) (no (unknown) (unknown) Ur Oxycodone (units (u nknown) date) Screen Negative unknown) (Negative) (unknown) (no (unknown) (unknown) Ur Phencyclidine (units (unknown) date) Scrn (Negative) unknown) (unknown) (no (unknown) (unknown) Ur Phencyclidine (units (unknown) date) Scrn Negative unknown) (Negative) (unknown) (no (unknown) (unknown) Ur Specific (units (un known) date) [place] <=1.005 unknown) (1.000-1.035) (unknown) (no (unknown) (unknown) Ur Specific (units (un known) date) [place] unknown) (1.000-1.035) (unknown) (no (unknown) (unknown) Ur Squamous Epith (units (unknown) date) Cells (0-5/HPF) unknown) (unknown) (no (unknown) (unknown) Ur Squamous Epith (units (unknown) date) Cells None seen unknown) (0-5/HPF) (unknown) (no (unknown) (unknown) Urine Appearance (units (unknown) date) Clear unknown) (unknown) (no (unknown) (unknown) Urine Appearance (units (unknown) date) unknown) (unknown) (no (unknown) (unknown) Urine Bacteria (units (unknown) date) (None) unknown) (unknown) (no (unknown) (unknown) Urine Bacteria (units (unknown) date) Occasional (0-1) unknown) (None) (unknown) (no (unknown) (unknown) Urine Bilirubin (units (unknown) date) (NEGATIVE) unknown) (unknown) (no (unknown) (unknown) Urine Bilirubin (units (unknown) date) Negative (NEGATIVE) unknown) (unknown) (no (unknown) (unknown) Urine Cocaine (units ( unknown) date) Screen (Negative) unknown) (unknown) (no (unknown) (unknown) Urine Cocaine (units ( unknown) date) Screen Negative unknown) (Negative) (unknown) (no (unknown) (unknown) Urine Color Lt. (units (unknown) date) yellow unknown) (unknown) (no (unknown) (unknown) Urine Color (units (un known) date) unknown) (unknown) (no (unknown) (unknown) Urine Glucose (UA) (units (unknown) date) (Negative) g/dL unknown) (unknown) (no (unknown) (unknown) Urine Glucose (UA) (units (unknown) date) Negative (Negative) unknown) g/dL (unknown) (no (unknown) (unknown) Urine Ketones (units ( unknown) date) (NEGATIVE) unknown) (unknown) (no (unknown) (unknown) Urine Ketones (units ( unknown) date) Negative (NEGATIVE) unknown) (unknown) (no (unknown) (unknown) Urine Methadone (units (unknown) date) Screen (Negative) unknown) (unknown) (no (unknown) (unknown) Urine Methadone (units (unknown) date) Screen Negative unknown) (Negative) (unknown) (no (unknown) (unknown) Urine Nitrate (units ( unknown) date) (Negative) unknown) (unknown) (no (unknown) (unknown) Urine Nitrate (units ( unknown) date) Negative (Negative) unknown) (unknown) (no (unknown) (unknown) Urine Occult Blood (units (unknown) date) (Negative) unknown) (unknown) (no (unknown) (unknown) Urine Occult Blood (units (unknown) date) Negative (Negative) unknown) (unknown) (no (unknown) (unknown) Urine Protein (units ( unknown) date) (Negative) unknown) (unknown) (no (unknown) (unknown) Urine Protein (units ( unknown) date) Negative (Negative) unknown) (unknown) (no (unknown) (unknown) Urine RBC (units (unkn own) date) (0-5/HPF) unknown) (unknown) (no (unknown) (unknown) Urine RBC None (units (unknown) date) seen (0-5/HPF) unknown) (unknown) (no (unknown) (unknown) Urine Urobilinogen (units (unknown) date) (0.2) E.U./dL unknown) (unknown) (no (unknown) (unknown) Urine Urobilinogen (units (unknown) date) 0.2 (0.2) E.U./dL unknown) (unknown) (no (unknown) (unknown) Urine WBC (units (unkn own) date) (0-5/HPF) unknown) (unknown) (no (unknown) (unknown) Urine WBC 0-1/hpf (units (unknown) date) (0-5/HPF) unknown) (unknown) (no (unknown) (unknown) Urine pH (4.5-8.0) (units (unknown) date) unknown) (unknown) (no (unknown) (unknown) Urine pH 6.0 (units (u nknown) date) (4.5-8.0) unknown) (unknown) (no (unknown) (unknown) Vital Signs - 8 hr (units (unknown) date) unknown) (unknown) (no (unknown) (unknown) Vital Signs (units (un known) date) unknown) (unknown) (no (unknown) (unknown) Vital signs: (units (u nknown) date) unknown) (unknown) (no (unknown) (unknown) WBC (4.5-11.0) (units (unknown) date) X103/uL unknown) (unknown) (no (unknown) (unknown) WBC 5.3 (4.5-11.0) (units (unknown) date) X103/uL unknown) (unknown) (no (unknown) (unknown) [Embedded Image (units (unknown) date) Not Available] unknown) (unknown) (no (unknown) (unknown) a psychiatrist or (units (unknown) date) prescribing unknown) therapist, this is the person who prescribes her (unknown) (no (unknown) (unknown) able to contact (units (unknown) date) for ride home and unknown) see if she can arrange for somebody to stay (unknown) (no (unknown) (unknown) abnormalities. (units (unknown) date) Near clear signs of unknown) alcohol withdrawal (unknown) (no (unknown) (unknown) additional (units (unk nown) date) outpatient follow unknown) up (unknown) (no (unknown) (unknown) afternoon with a (units (unknown) date) call to confirm the unknown) time for that appointment. I am concerned (unknown) (no (unknown) (unknown) again. (units (unkno wn) date) unknown) (unknown) (no (unknown) (unknown) alcohol intake (units (unknown) date) frequency: 3 or unknown) more drinks per day (unknown) (no (unknown) (unknown) alcohol intake: (units (unknown) date) current unknown) (unknown) (no (unknown) (unknown) alcohol use, (units (u nknown) date) unknown) (unknown) (no (unknown) (unknown) all of her flu (units (unknown) date) vaccine and acutely unknown) intoxicated. After discussion with poison (unknown) (no (unknown) (unknown) bed. She believes (units (unknown) date) she has an unknown) appointment with her therapist (unsure if this is (unknown) (no (unknown) (unknown) been reviewed with (units (unknown) date) patient as well as unknown) indications for ED re-evaluation and (unknown) (no (unknown) (unknown) being discharged (units (unknown) date) from the emergency unknown) department around noon she moved into her (unknown) (no (unknown) (unknown) brought in by a (units (unknown) date) friend [facility] around 8:15 p.m. with (unknown) (no (unknown) (unknown) chronic alcohol (units (unknown) date) use unknown) (unknown) (no (unknown) (unknown) cleared and then (units (unknown) date) seen by social unknown) workers the morning of 03/27. At that time she (unknown) (no (unknown) (unknown) complaints of (units ( unknown) date) acute alcohol unknown) intoxication and suicidal ideation without discrete (unknown) (no (unknown) (unknown) condominium and (units (unknown) date) moving out of the unknown) home shared with her current . She is (unknown) (no (unknown) (unknown) control she was (units (unknown) date) observed in the unknown) emergency department for 8 hours medically (unknown) (no (unknown) (unknown) enough to end up (units (unknown) date) in the emergency unknown) department unless than 8 hours is unclear and (unknown) (no (unknown) (unknown) fluconazole 150 mg (units (unknown) date) tablet 150 mg PO unknown) DAILY #1 tab 11/03/21 (unknown) (no (unknown) (unknown) fluconazole (units (un known) date) [Diflucan] 150 mg unknown) tablet (unknown) (no (unknown) (unknown) fluvoxamine 50 mg (units (unknown) date) tablet 50 mg DAILY unknown) 10/24/21 11/24/21 (unknown) (no (unknown) (unknown) fluvoxamine 50 mg (units (unknown) date) tablet unknown) (unknown) (no (unknown) (unknown) fluvoxamine) via (units (unknown) date) telemedicine at unknown) 1:00 p.m. on the . She states that she (unknown) (no (unknown) (unknown) had no fever, (units ( unknown) date) cough, chills, unknown) abdominal pain. It is not complaining of headache. (unknown) (no (unknown) (unknown) here, has been (units (unknown) date) cooperative. unknown) Awaiting for social work evaluation. Patient (unknown) (no (unknown) (unknown) household members: (units (unknown) date) spouse and children unknown) (unknown) (no (unknown) (unknown) hydroxyzine HCl 25 (units (unknown) date) mg tablet 25 mg PO unknown) BEDTIME PRN sleep #7 tabs 10/24/21 (unknown) (no (unknown) (unknown) hydroxyzine HCl 25 (units (unknown) date) mg tablet unknown) (unknown) (no (unknown) (unknown) including her 8 (units (unknown) date) hour observation unknown) stay and social Work consult are reviewed (unknown) (no (unknown) (unknown) insight overall (units (unknown) date) unknown) (unknown) (no (unknown) (unknown) instability (units (un known) date) unknown) (unknown) (no (unknown) (unknown) intoxicated with (units (unknown) date) alcohol and unknown) suicidal. She was seen at [facility] on 03/26 (unknown) (no (unknown) (unknown) is able to speak (units (unknown) date) in complete unknown) sentences (unknown) (no (unknown) (unknown) is not clear to me (units (unknown) date) that she is safe to unknown) be discharged home with current social (unknown) (no (unknown) (unknown) issues surrounding (units (unknown) date) her ex-, unknown) oldest children and current with whom (unknown) (no (unknown) (unknown) losartan 50 mg (units (unknown) date) tablet 50 mg PO unknown) DAILY 10/17/21 11/24/21 (unknown) (no (unknown) (unknown) losartan 50 mg (units (unknown) date) tablet unknown) (unknown) (no (unknown) (unknown) needs external (units (unknown) date) validation. unknown) (unknown) (no (unknown) (unknown) negative. Patient (units (unknown) date) [facility] (unknown) (no (unknown) (unknown) new condominium. (units (unknown) date) How she managed to unknown) do all of that and become intoxicated (unknown) (no (unknown) (unknown) not sure if there (units (unknown) date) simply unknown) or truly heading for divorce. There (unknown) (no (unknown) (unknown) of the night (units (u nknown) date) before had her unknown) psychiatry televideo appointment moved to March (unknown) (no (unknown) (unknown) own bed?. Today, (units (unknown) date) she reports no unknown) pills or other medications, no cutting. She is (unknown) (no (unknown) (unknown) plan and no (units (un known) date) reports of taking unknown) any additional pills. (unknown) (no (unknown) (unknown) plan. When (units (unk nown) date) discussing options unknown) for her later in the evening after she would (unknown) (no (unknown) (unknown) prescription (units (u nknown) date) antidepressants and unknown) discharge from the hospital less than 8 hours (unknown) (no (unknown) (unknown) prior to (units (unkno wn) date) [facility] (no (unknown) (unknown) separation from (units (unknown) date) her , unknown) question of alcohol use disorder, overall social (unknown) (no (unknown) (unknown) she ended up back (units (unknown) date) in the emergency unknown) room in 8 hours with similar suicidal (unknown) (no (unknown) (unknown) she is . (units (unknown) date) When she wakes up unknown) again, we will see what friends she is (unknown) (no (unknown) (unknown) significant (units (un known) date) withdrawal. She unknown) still seems moderately despondent but denies any (unknown) (no (unknown) (unknown) situational (units (un known) date) disturbance, unknown) suicidal ideation, suicide attempt (unknown) (no (unknown) (unknown) sobered she states (units (unknown) date) she is tired and unknown) simply wants to go home and sleep in her own (unknown) (no (unknown) (unknown) social work (units (un known) date) evaluation. Patient unknown) is medically cleared. Alcohol levels are (unknown) (no (unknown) (unknown) speech, no (units (unk nown) date) auditory or visual unknown) hallucinations (unknown) (no (unknown) (unknown) stated she does (units (unknown) date) have appointment unknown) with therapist/counselin g this afternoon (unknown) (no (unknown) (unknown) states that she is (units (unknown) date) been struggling unknown) with multiple acute situational stressors. (unknown) (no (unknown) (unknown) suicidal or (units (un known) date) homicidal ideation. unknown) Plan is to go home, take shower, had something (unknown) (no (unknown) (unknown) suicide ideations (units (unknown) date) yesterday unknown) afternoon. Patient has been resting comfortably (unknown) (no (unknown) (unknown) that included in (units (unknown) date) the HPI. unknown) (unknown) (no (unknown) (unknown) that she had this (units (unknown) date) exact same unknown) presentation for the social services designee at would be and (unknown) (no (unknown) (unknown) thoughts she was (units (unknown) date) unable to give a unknown) reasonable answer and simply states she wants (unknown) (no (unknown) (unknown) to eat and keep (units (unknown) date) her appointment unknown) with her therapist at 1:00 p.m. later this (unknown) (no (unknown) (unknown) to go home and (units (unknown) date) ?take a hot shower, unknown) eat and drink something and go to bed in her (unknown) (no (unknown) (unknown) updating her on (units (unknown) date) any medical unknown) abnormalities. She is currently moving into her own (unknown) (no (unknown) (unknown) wants to be home (units (unknown) date) to have dinner with unknown) her son and her . When asked how (unknown) (no (unknown) (unknown) was felt to be (units (unknown) date) clinically sober, unknown) feeling better did not have much recollection (unknown) (no (unknown) (unknown) with her for the (units (unknown) date) day to make sure unknown) that she is safe and does not began drinking (unknown) (no (unknown) (unknown) within 8 hours was (units (unknown) date) again drinking and unknown) considering killing herself. 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 At this (units (unknown) date) point I do not unknown) believe that she is gravely disabled however it Result panel 115 (unknown) (no (unknown) (unknown) (no value) (units (unk nown) date) unknown) (unknown) (no (unknown) (unknown) <Cristian Leigh, (units (unknown) date) - Last Filed: unknown) 03/28/22 09:20> (unknown) (no (unknown) (unknown) <Yajaira Rose, (units (unknown) date) - Last Filed: unknown) 03/28/22 03:02> (unknown) (no (unknown) (unknown) (Diflucan) (units (unk nown) date) unknown) (unknown) (no (unknown) (unknown) 03/27/22 03/27/22 (units (unknown) date) 03/27/22 unknown) Range/Units (unknown) (no (unknown) (unknown) 03/27/22 03/27/22 (units (unknown) date) 03/28/22 unknown) Range/Units (unknown) (no (unknown) (unknown) 03/27/22 21:19 (units (unknown) date) unknown) (unknown) (no (unknown) (unknown) 03/28/22 02:09 (units (unknown) date) unknown) (unknown) (no (unknown) (unknown) 03/28/22 (units (unkno wn) date) unknown) (unknown) (no (unknown) (unknown) 04:00 (units (unkno wn) date) unknown) (unknown) (no (unknown) (unknown) 150 mg PO DAILY (units (unknown) date) Qty: 1 1RF unknown) (unknown) (no (unknown) (unknown) 19, is apparently (units (unknown) date) in the hospital and unknown) wants ?nothing to do with her? including (unknown) (no (unknown) (unknown) 20:23 20:30 21:19 (units (unknown) date) unknown) (unknown) (no (unknown) (unknown) 21:19 21:19 02:09 (units (unknown) date) unknown) (unknown) (no (unknown) (unknown) 23 with an overdose (units (unknown) date) with reportedly unknown) benzodiazepines including Valium and Ativan, (unknown) (no (unknown) (unknown) was felt to (units (unknown) date) be forward thinking unknown) and planning and safe for discharge home. (unknown) (no (unknown) (unknown) 25 mg PO BEDTIME (units (unknown) date) PRN (Reason: sleep) unknown) Qty: 7 0RF (unknown) (no (unknown) (unknown) 3am she has gone (units (unknown) date) back to sleep and I unknown) am not going to disturb her at this time. (unknown) (no (unknown) (unknown) 41-year-old woman (units (unknown) date) with a history of unknown) depression was brought in by her friend (unknown) (no (unknown) (unknown) 50 mg DAILY (units (un known) date) unknown) (unknown) (no (unknown) (unknown) 50 mg PO DAILY (units (unknown) date) unknown) (unknown) (no (unknown) (unknown) 8-year-old son has (units (unknown) date) said he wants to unknown) live with both of them. She said that after (unknown) (no (unknown) (unknown) ALT (<35) IU/L (units (unknown) date) unknown) (unknown) (no (unknown) (unknown) ALT 28 (<35) IU/L (units (unknown) date) unknown) (unknown) (no (unknown) (unknown) AST (14-36) IU/L (units (unknown) date) unknown) (unknown) (no (unknown) (unknown) AST 38 H (14-36) (units (unknown) date) IU/L unknown) (unknown) (no (unknown) (unknown) Abdomen: Soft, (units (unknown) date) nontender, good unknown) bowel tones, no flank pain (unknown) (no (unknown) (unknown) Abnormal uterine (units (unknown) date) bleeding (AUB) unknown) (unknown) (no (unknown) (unknown) Acetaminophen < 10 (units (unknown) date) (10-30) ug/mL unknown) (unknown) (no (unknown) (unknown) Acetaminophen (units ( unknown) date) (10-30) ug/mL unknown) (unknown) (no (unknown) (unknown) Activity (units (unkno wn) date) Restrictions/Additi unknown) onal Instructions: (unknown) (no (unknown) (unknown) Age/Sex: 41 / F (units (unknown) date) unknown) (unknown) (no (unknown) (unknown) Albumin (3.5-5.0) (units (unknown) date) g/dL unknown) (unknown) (no (unknown) (unknown) Albumin 4.0 (units (un known) date) (3.5-5.0) g/dL unknown) (unknown) (no (unknown) (unknown) Albumin/Globulin (units (unknown) date) Ratio (1.0-2.8) unknown) (unknown) (no (unknown) (unknown) Albumin/Globulin (units (unknown) date) Ratio 1.2 (1.0-2.8) unknown) (unknown) (no (unknown) (unknown) Alcohol (units (unkno wn) date) intoxication, Major unknown) depression, Acute situational disturbance, (unknown) (no (unknown) (unknown) Alkaline (units (unkno wn) date) Phosphatase unknown) (38-126) U/L (unknown) (no (unknown) (unknown) Alkaline (units (unkno wn) date) Phosphatase 52 unknown) (38-126) U/L (unknown) (no (unknown) (unknown) Allergies (units (unkn own) date) unknown) (unknown) (no (unknown) (unknown) Allergy/AdvReac (units (unknown) date) Type Severity unknown) Reaction Status Date / Time (unknown) (no (unknown) (unknown) Anesthesia (units (unk nown) date) unknown) (unknown) (no (unknown) (unknown) Apparently her (units (unknown) date) ex- and 2 unknown) older children live in [place], the oldest son, (unknown) (no (unknown) (unknown) BUN (7-17) mg/dL (units (unknown) date) unknown) (unknown) (no (unknown) (unknown) BUN 15 (7-17) (units ( unknown) date) mg/dL unknown) (unknown) (no (unknown) (unknown) BUN/Creatinine (units (unknown) date) Ratio (6-22) unknown) (unknown) (no (unknown) (unknown) BUN/Creatinine (units (unknown) date) Ratio 20.3 (6-22) unknown) (unknown) (no (unknown) (unknown) Baso # (Auto) (units ( unknown) date) (0-100) /uL unknown) (unknown) (no (unknown) (unknown) Baso # (Auto) 100 (units (unknown) date) (0-100) /uL unknown) (unknown) (no (unknown) (unknown) Baso % (Auto) (units ( unknown) date) (0-2) % unknown) (unknown) (no (unknown) (unknown) Baso % (Auto) 1.3 (units (unknown) date) (0-2) % unknown) (unknown) (no (unknown) (unknown) Blood Pressure (units (unknown) date) 114/79 unknown) (unknown) (no (unknown) (unknown) Blood Pressure (units (unknown) date) 99/55 L 03/27/22 unknown) 20:15 (unknown) (no (unknown) (unknown) Breast cancer (units ( unknown) date) unknown) (unknown) (no (unknown) (unknown) Breast cyst (units (un known) date) () unknown) (unknown) (no (unknown) (unknown) CBC shows no (units (u nknown) date) leukocytosis but unknown) she does have a mild macrocytosis consistent with (unknown) (no (unknown) (unknown) CC: Acute alcohol (units (unknown) date) intoxication with unknown) suicidal ideation (unknown) (no (unknown) (unknown) Calcium (8.4-10.2) (units (unknown) date) mg/dL unknown) (unknown) (no (unknown) (unknown) Calcium 8.7 (units (un known) date) (8.4-10.2) mg/dL unknown) (unknown) (no (unknown) (unknown) Carbon Dioxide (units (unknown) date) (22-32) mmol/L unknown) (unknown) (no (unknown) (unknown) Carbon Dioxide 21 (units (unknown) date) L (22-32) mmol/L unknown) (unknown) (no (unknown) (unknown) Cardiac: Regular (units (unknown) date) rate and rhythm no unknown) murmurs no bruits (unknown) (no (unknown) (unknown) Chemistries are (units (unknown) date) reassuring with unknown) minimally elevated AST again consistent with (unknown) (no (unknown) (unknown) Chief Complaint: (units (unknown) date) Psychiatric unknown) Symptoms (unknown) (no (unknown) (unknown) Chloride (98-107) (units (unknown) date) mmol/L unknown) (unknown) (no (unknown) (unknown) Chloride 106 (units (u nknown) date) (98-107) mmol/L unknown) (unknown) (no (unknown) (unknown) Clinical (units (unkno wn) date) Impression: unknown) (unknown) (no (unknown) (unknown) Complicating (units (u nknown) date) co-morbidities: unknown) Similar with overdose with benzodiazepines and her (unknown) (no (unknown) (unknown) Consultations: (units (unknown) date) unknown) (unknown) (no (unknown) (unknown) Corroborating (units ( unknown) date) data: unknown) (unknown) (no (unknown) (unknown) Course Narrative: (units (unknown) date) unknown) (unknown) (no (unknown) (unknown) Course (units (unkno wn) date) unknown) (unknown) (no (unknown) (unknown) Creatinine (units (unk nown) date) (0.52-1.04) mg/dL unknown) (unknown) (no (unknown) (unknown) Creatinine 0.74 (units (unknown) date) (0.52-1.04) mg/dL unknown) (unknown) (no (unknown) (unknown) : 1980 (units (unknown) date) Acct:[id number] unknown) (unknown) (no (unknown) (unknown) Data collected (units (unknown) date) from: patient, unknown) (unknown) (no (unknown) (unknown) Date of Service: (units (unknown) date) 03/27/22 unknown) (unknown) (no (unknown) (unknown) Departure (units (unkn own) date) unknown) (unknown) (no (unknown) (unknown) Depression with (units (unknown) date) suicidal ideation unknown) (unknown) (no (unknown) (unknown) Depression (units (unk nown) date) unknown) (unknown) (no (unknown) (unknown) Differential (units (u nknown) date) considered: Major unknown) depression, alcohol use disorder, acute (unknown) (no (unknown) (unknown) Discharge Plan (units (unknown) date) unknown) (unknown) (no (unknown) (unknown) Discontinued (units (u nknown) date) Medications unknown) (unknown) (no (unknown) (unknown) Discussion: 9:15 (units (unknown) date) a.m.. Patient is unknown) awake alert oriented x4. Clear speech. I (unknown) (no (unknown) (unknown) Discussion: (units (un known) date) unknown) (unknown) (no (unknown) (unknown) Disposition: see (units (unknown) date) below, along with unknown) detailed discharge instructions that have (unknown) (no (unknown) (unknown) Documented By: AP (units (unknown) date) unknown) (unknown) (no (unknown) (unknown) ED Orders (units (unkn own) date) unknown) (unknown) (no (unknown) (unknown) ER Physician: (units ( unknown) date) Cristian Leigh MD unknown) (unknown) (no (unknown) (unknown) ETOH [Ethanol (units ( unknown) date) (ETOH)] Stat unknown) (unknown) (no (unknown) (unknown) Emergency Report (units (unknown) date) unknown) (unknown) (no (unknown) (unknown) Eos # (Auto) (units (u nknown) date) (0-450) /uL unknown) (unknown) (no (unknown) (unknown) Eos # (Auto) 200 (units (unknown) date) (0-450) /uL unknown) (unknown) (no (unknown) (unknown) Eos % (Auto) (2-4) (units (unknown) date) % unknown) (unknown) (no (unknown) (unknown) Eos % (Auto) 2.9 (units (unknown) date) (2-4) % unknown) (unknown) (no (unknown) (unknown) Estimated GFR > 60 (units (unknown) date) (>60) mL/min unknown) (unknown) (no (unknown) (unknown) Estimated GFR (units ( unknown) date) (>60) mL/min unknown) (unknown) (no (unknown) (unknown) Ethyl Alcohol ( - (units (unknown) date) 10) mg/dL unknown) (unknown) (no (unknown) (unknown) Ethyl Alcohol 124 (units (unknown) date) H < 10 ( - 10) unknown) mg/dL (unknown) (no (unknown) (unknown) Exam documented (units (unknown) date) above, pertinent unknown) findings include: Fatigued appearing, poor (unknown) (no (unknown) (unknown) Exam (units (unkno wn) date) unknown) (unknown) (no (unknown) (unknown) Extremities: No (units (unknown) date) trauma, well unknown) perfused, no evidence of self cutting (unknown) (no (unknown) (unknown) Family History (units (unknown) date) (Updated 10/02/21 @ unknown) 19:54 by Alysia Hernandez MD) (unknown) (no (unknown) (unknown) Free T4 (units (unkno wn) date) (0.78-2.19) ng/dL unknown) (unknown) (no (unknown) (unknown) Free T4 0.89 (units (u nknown) date) (0.78-2.19) ng/dL unknown) (unknown) (no (unknown) (unknown) Full and (units (unkno wn) date) symmetrical air unknown) movement (unknown) (no (unknown) (unknown) General (units (unkno wn) date) unknown) (unknown) (no (unknown) (unknown) General: Appears (units (unknown) date) Emotionally and unknown) physically exhausted, moderate eye contact she (unknown) (no (unknown) (unknown) Globulin (1.7-4.1) (units (unknown) date) g/dL unknown) (unknown) (no (unknown) (unknown) Globulin 3.3 (units (u nknown) date) (1.7-4.1) g/dL unknown) (unknown) (no (unknown) (unknown) Glucose (70-100) (units (unknown) date) mg/dL unknown) (unknown) (no (unknown) (unknown) Glucose 79 (units (unk nown) date) (70-100) mg/dL unknown) (unknown) (no (unknown) (unknown) HEENT: Moist (units (u nknown) date) mucous membranes, unknown) normal sclera with reactive pupils, (unknown) (no (unknown) (unknown) HPI - Psych (units (un known) date) unknown) (unknown) (no (unknown) (unknown) HPI Narrative: (units (unknown) date) unknown) (unknown) (no (unknown) (unknown) Hct (36-46) % (units ( unknown) date) unknown) (unknown) (no (unknown) (unknown) Hct 39.1 (36-46) % (units (unknown) date) unknown) (unknown) (no (unknown) (unknown) Herpes (-2000) (units (unknown) date) unknown) (unknown) (no (unknown) (unknown) Hgb (12.0-16.0) (units (unknown) date) g/dL unknown) (unknown) (no (unknown) (unknown) Hgb 13.3 (units (unkno wn) date) (12.0-16.0) g/dL unknown) (unknown) (no (unknown) (unknown) History of Present (units (unknown) date) Illness unknown) (unknown) (no (unknown) (unknown) Home Medications (units (unknown) date) unknown) (unknown) (no (unknown) (unknown) Hyperlipidemia (units (unknown) date) unknown) (unknown) (no (unknown) (unknown) Hypertension (units (u nknown) date) unknown) (unknown) (no (unknown) (unknown) I would feel much (units (unknown) date) more comfortable if unknown) she had a chance to talk to our social (unknown) (no (unknown) (unknown) Initial Vital (units ( unknown) date) Signs unknown) (unknown) (no (unknown) (unknown) Initial Vital (units ( unknown) date) Signs: unknown) (unknown) (no (unknown) (unknown) Instructions: DI (units (unknown) date) for Depression -- unknown) Adult, DI for Alcohol Use Disorder, DI for (unknown) (no (unknown) (unknown) [facility] (units (unknown) date) [address]) [place] [address] (unknown) (no (unknown) (unknown) March 28, 2022 (units (unknown) date) at 7:00 a.m.. Sign unknown) out from Dr. Stark, patient awaiting for (unknown) (no (unknown) (unknown) Lab Data (units (unkno wn) date) unknown) (unknown) (no (unknown) (unknown) Lab Results (units (un known) date) unknown) (unknown) (no (unknown) (unknown) Lab Test results (units (unknown) date) independently unknown) reviewed as above. Pertinent findings: (unknown) (no (unknown) (unknown) Label Comments: (units (unknown) date) unknown) (unknown) (no (unknown) (unknown) Labs: (units (unkno wn) date) unknown) (unknown) (no (unknown) (unknown) Last Admin: (units (un known) date) 03/28/22 03:55 unknown) Dose: 21 mg (unknown) (no (unknown) (unknown) Lorazepam (units (unkn own) date) (Lorazepam 0.5 Mg unknown) Tablet) 1 mg PO NOW ONE (unknown) (no (unknown) (unknown) Lymph # (Auto) (units (unknown) date) (6241-7485) /uL unknown) (unknown) (no (unknown) (unknown) Lymph # (Auto) (units (unknown) date) 1500 (0452-7624) unknown) /uL (unknown) (no (unknown) (unknown) Lymph % (Auto) (units (unknown) date) (25-40) % unknown) (unknown) (no (unknown) (unknown) Lymph % (Auto) (units (unknown) date) 28.5 (25-40) % unknown) (unknown) (no (unknown) (unknown) [id number] (units (unk nown) date) unknown) (unknown) (no (unknown) (unknown) MCH (26-34) PG (units (unknown) date) unknown) (unknown) (no (unknown) (unknown) MCH 35.0 H (26-34) (units (unknown) date) PG unknown) (unknown) (no (unknown) (unknown) MCHC (30-36) % (units (unknown) date) unknown) (unknown) (no (unknown) (unknown) MCHC 34.0 (30-36) (units (unknown) date) % unknown) (unknown) (no (unknown) (unknown) MCV (80-100) fL (units (unknown) date) unknown) (unknown) (no (unknown) (unknown) MCV 103.0 H (units (un known) date) (80-100) fL unknown) (unknown) (no (unknown) (unknown) MDM - Psych (units (un known) date) unknown) (unknown) (no (unknown) (unknown) MDM Narrative (units ( unknown) date) unknown) (unknown) (no (unknown) (unknown) Medical History (units (unknown) date) (Updated 03/28/22 @ unknown) 03:02 by Yajaira Rose MD) (unknown) (no (unknown) (unknown) Medical decision (units (unknown) date) making narrative: unknown) (unknown) (no (unknown) (unknown) Medical records (units (unknown) date) reviewed: Records unknown) from [facility] Emergency Department (unknown) (no (unknown) (unknown) Medication (units (unk nown) date) Instructions unknown) Recorded Confirmed (unknown) (no (unknown) (unknown) Medication (units (unk nown) date) Instructions unknown) Recorded (unknown) (no (unknown) (unknown) Mental health (units ( unknown) date) problem unknown) (unknown) (no (unknown) (unknown) Rubina Mullins PA-C (units (unknown) date) [Primary Care unknown) Provider] (unknown) (no (unknown) (unknown) Mode of arrival: (units (unknown) date) Ambulatory unknown) (unknown) (no (unknown) (unknown) [place] # (Auto) (units ( unknown) date) (0-900) /uL unknown) (unknown) (no (unknown) (unknown) [place] # (Auto) 500 (units (unknown) date) (0-900) /uL unknown) (unknown) (no (unknown) (unknown) [place] % (Auto) (units ( unknown) date) (3-14) % unknown) (unknown) (no (unknown) (unknown) [place] % (Auto) 9.7 (units (unknown) date) (3-14) % unknown) (unknown) (no (unknown) (unknown) Mother Diabetes (units (unknown) date) mellitus unknown) (unknown) (no (unknown) (unknown) Narrative: (units (unk nown) date) unknown) (unknown) (no (unknown) (unknown) Neurologic: (units (un known) date) Grossly unknown) neurologically intact with no obvious asymmetries or (unknown) (no (unknown) (unknown) Neut # (Auto) (units ( unknown) date) (9549-2888) /uL unknown) (unknown) (no (unknown) (unknown) Neut # (Auto) 3100 (units (unknown) date) (2688-9746) /uL unknown) (unknown) (no (unknown) (unknown) Neut % (Auto) (units ( unknown) date) (50-75) % unknown) (unknown) (no (unknown) (unknown) Neut % (Auto) 57.6 (units (unknown) date) (50-75) % unknown) (unknown) (no (unknown) (unknown) Nicotine (Nicotine (units (unknown) date) 21 Mg Patch) 21 mg unknown) TOP NOW ONE (unknown) (no (unknown) (unknown) No Action (units (unkn own) date) unknown) (unknown) (no (unknown) (unknown) No Known Drug (units ( unknown) date) Allergies Allergy unknown) Verified 11/24/21 10:21 (unknown) (no (unknown) (unknown) No driving or (units ( unknown) date) operating machinery unknown) today. Please see your counselor at 10:30 (unknown) (no (unknown) (unknown) No evidence of (units (unknown) date) thyroid abnormality unknown) (unknown) (no (unknown) (unknown) No significant (units (unknown) date) medical problems unknown) (unknown) (no (unknown) (unknown) Once she has (units (u nknown) date) sobered slightly we unknown) are able to have a reasonable discussion. She (unknown) (no (unknown) (unknown) Ordered: (units (unkno wn) date) unknown) (unknown) (no (unknown) (unknown) Orders (units (unkno wn) date) unknown) (unknown) (no (unknown) (unknown) Oxygen Delivery (units (unknown) date) Method 03/27/22 unknown) 20:15 (unknown) (no (unknown) (unknown) Oxygen Delivery (units (unknown) date) Method Room Air unknown) (unknown) (no (unknown) (unknown) PTSD (units (unkno wn) date) (post-traumatic unknown) stress disorder) (unknown) (no (unknown) (unknown) Patient (units (unkno wn) date) Disposition: Home unknown) (unknown) (no (unknown) (unknown) Patient History (units (unknown) date) unknown) (unknown) (no (unknown) (unknown) Patient went home, (units (unknown) date) 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 However drank alcohol again with (unknown) (no (unknown) (unknown) Patient: (units (unkno wn) date) Cate Holcomb A unknown) MR#: (unknown) (no (unknown) (unknown) Pelvic pain (units (un known) date) unknown) (unknown) (no (unknown) (unknown) Plt Count (units (unkn own) date) (150-400) X103/uL unknown) (unknown) (no (unknown) (unknown) Plt Count 254 (units ( unknown) date) (150-400) X103/uL unknown) (unknown) (no (unknown) (unknown) Potassium (units (unkn own) date) (3.4-5.1) mmol/L unknown) (unknown) (no (unknown) (unknown) Potassium 3.9 (units ( unknown) date) (3.4-5.1) mmol/L unknown) (unknown) (no (unknown) (unknown) Prescriptions: (units (unknown) date) unknown) (unknown) (no (unknown) (unknown) Previous Rx's (units ( unknown) date) unknown) (unknown) (no (unknown) (unknown) Prozac overdose. (units (unknown) date) Was discharge from unknown) that facility. Patient was not detainable. (unknown) (no (unknown) (unknown) Psoriasis (units (unkn own) date) unknown) (unknown) (no (unknown) (unknown) Psych: Poor (units (un known) date) overall insight, unknown) significant denial, poor eye contact, fluent (unknown) (no (unknown) (unknown) Pulse Oximetry 96 (units (unknown) date) 03/27/22 20:15 unknown) (unknown) (no (unknown) (unknown) Pulse Oximetry 98 (units (unknown) date) unknown) (unknown) (no (unknown) (unknown) Pulse Rate 64 (units ( unknown) date) 03/27/22 20:15 unknown) (unknown) (no (unknown) (unknown) Pulse Rate 72 (units ( unknown) date) unknown) (unknown) (no (unknown) (unknown) RBC (4.0-5.2) (units ( unknown) date) X106/uL unknown) (unknown) (no (unknown) (unknown) RBC 3.80 L (units (unk nown) date) (4.0-5.2) X106/uL unknown) (unknown) (no (unknown) (unknown) RDW (11.6-14.8) % (units (unknown) date) unknown) (unknown) (no (unknown) (unknown) RDW 14.0 (units (unkno wn) date) (11.6-14.8) % unknown) (unknown) (no (unknown) (unknown) Re-evaluations: (units (unknown) date) Patient is unknown) clinically and medically sober with no signs of (unknown) (no (unknown) (unknown) Referrals: (units (unk nown) date) unknown) (unknown) (no (unknown) (unknown) Related Data (units (u nknown) date) unknown) (unknown) (no (unknown) (unknown) Remainder of (units (u nknown) date) complete review of unknown) systems is otherwise unremarkable except for (unknown) (no (unknown) (unknown) Repeat alcohol (units (unknown) date) level at 2:30 a.m. unknown) is less than 0. (unknown) (no (unknown) (unknown) Respiratory Rate (units (unknown) date) 18 03/27/22 20:15 unknown) (unknown) (no (unknown) (unknown) Respiratory Rate (units (unknown) date) 18 unknown) (unknown) (no (unknown) (unknown) Respiratory: Lungs (units (unknown) date) are clear to unknown) auscultation, no wheezing no rales no rhonchi. (unknown) (no (unknown) (unknown) Review of Systems (units (unknown) date) unknown) (unknown) (no (unknown) (unknown) Salicylates < 1.0 (units (unknown) date) (<20) mg/dL unknown) (unknown) (no (unknown) (unknown) Salicylates (<20) (units (unknown) date) mg/dL unknown) (unknown) (no (unknown) (unknown) Severe (units (unkno wn) date) dysmenorrhea unknown) (unknown) (no (unknown) (unknown) She simply states (units (unknown) date) that she wants to unknown) harm herself but does not have a discrete (unknown) (no (unknown) (unknown) She states she (units (unknown) date) ?lost yesterday unknown) with all of the pressure with her family ? (unknown) (no (unknown) (unknown) She was discharged (units (unknown) date) from would be unknown) emergency department around noon and was (unknown) (no (unknown) (unknown) Signed By: (units (unk nown) date) unknown) (unknown) (no (unknown) (unknown) Skin: Warm and (units (unknown) date) dry, no rashes unknown) (unknown) (no (unknown) (unknown) Smoking Status: (units (unknown) date) Former smoker unknown) (unknown) (no (unknown) (unknown) Social History (units (unknown) date) (Reviewed 02/18/20 unknown) @ 12:52 by EDDIE Castillo) (unknown) (no (unknown) (unknown) Social (units (unkno wn) date) determinants of unknown) health that may influence the patients condition: Recent (unknown) (no (unknown) (unknown) Sodium (137-145) (units (unknown) date) mmol/L unknown) (unknown) (no (unknown) (unknown) Sodium 140 (units (unk nown) date) (137-145) mmol/L unknown) (unknown) (no (unknown) (unknown) Source: patient (units (unknown) date) unknown) (unknown) (no (unknown) (unknown) Stand Alone Forms: (units (unknown) date) Patient Portal/API unknown) (unknown) (no (unknown) (unknown) Stated Complaint: (units (unknown) date) suicidal unknown) (unknown) (no (unknown) (unknown) Status post (units (un known) date) laparoscopic unknown) supracervical hysterectomy (10/27/21) (unknown) (no (unknown) (unknown) Stop: 03/28/22 (units (unknown) date) 03:41 unknown) (unknown) (no (unknown) (unknown) Stop: 03/28/22 (units (unknown) date) 09:16 unknown) (unknown) (no (unknown) (unknown) Substance Use (units ( unknown) date) Type: does not use unknown) (unknown) (no (unknown) (unknown) Suicidal (units (unkno wn) date) Ideation-Adult unknown) (unknown) (no (unknown) (unknown) Surgical History (units (unknown) date) (Updated 11/25/21 @ unknown) 22:07 by Alysia Hernandez MD) (unknown) (no (unknown) (unknown) TAKE 1 TABLET BY (units (unknown) date) MOUTH EVERY EVENING unknown) (unknown) (no (unknown) (unknown) TSH (0.47-4.68) (units (unknown) date) uIU/mL unknown) (unknown) (no (unknown) (unknown) TSH 1.17 (units (unkno wn) date) (0.47-4.68) uIU/mL unknown) (unknown) (no (unknown) (unknown) Temperature 97.9 F (units (unknown) date) 03/27/22 20:15 unknown) (unknown) (no (unknown) (unknown) Time Seen by (units (u nknown) date) Provider: 03/27/22 unknown) 22:28 (unknown) (no (unknown) (unknown) Total Bilirubin (units (unknown) date) (0.2-1.3) mg/dL unknown) (unknown) (no (unknown) (unknown) Total Bilirubin (units (unknown) date) 0.4 (0.2-1.3) mg/dL unknown) (unknown) (no (unknown) (unknown) Total Protein (units ( unknown) date) (6.3-8.2) g/dL unknown) (unknown) (no (unknown) (unknown) Total Protein 7.3 (units (unknown) date) (6.3-8.2) g/dL unknown) (unknown) (no (unknown) (unknown) Treatments: (units (un known) date) Sobering unknown) (unknown) (no (unknown) (unknown) Treatments: (units (un known) date) Sobering, Ativan unknown) for anxiety. Nicotine patch. (unknown) (no (unknown) (unknown) U Benzodiazepines (units (unknown) date) Scrn (Negative) unknown) (unknown) (no (unknown) (unknown) U Benzodiazepines (units (unknown) date) Scrn Positive H unknown) (Negative) (unknown) (no (unknown) (unknown) U Marijuana (THC) (units (unknown) date) Screen (Negative) unknown) (unknown) (no (unknown) (unknown) U Marijuana (THC) (units (unknown) date) Screen Negative unknown) (Negative) (unknown) (no (unknown) (unknown) U Methamphetamines (units (unknown) date) Scrn (Negative) unknown) (unknown) (no (unknown) (unknown) U Methamphetamines (units (unknown) date) Scrn Negative unknown) (Negative) (unknown) (no (unknown) (unknown) U Opiates 300ng/mL (units (unknown) date) cut (Negative) unknown) (unknown) (no (unknown) (unknown) U Opiates 300ng/mL (units (unknown) date) cut Negative unknown) (Negative) (unknown) (no (unknown) (unknown) U Tricyclic (units (un known) date) Antidepress unknown) (Negative) (unknown) (no (unknown) (unknown) U Tricyclic (units (un known) date) Antidepress unknown) Negative (Negative) (unknown) (no (unknown) (unknown) Ur Amphetamines (units (unknown) date) Screen (Negative) unknown) (unknown) (no (unknown) (unknown) Ur Amphetamines (units (unknown) date) Screen Negative unknown) (Negative) (unknown) (no (unknown) (unknown) Ur Barbiturates (units (unknown) date) Screen (Negative) unknown) (unknown) (no (unknown) (unknown) Ur Barbiturates (units (unknown) date) Screen Negative unknown) (Negative) (unknown) (no (unknown) (unknown) Ur Culture (units (unk nown) date) Indicated? Cult not unknown) indicated (unknown) (no (unknown) (unknown) Ur Culture (units (unk nown) date) Indicated? unknown) (unknown) (no (unknown) (unknown) Ur Leukocyte (units (u nknown) date) Esterase (NEGATIVE) unknown) (unknown) (no (unknown) (unknown) Ur Leukocyte (units (u nknown) date) Esterase Negative unknown) (NEGATIVE) (unknown) (no (unknown) (unknown) Ur MDMA Scrn (units (u nknown) date) (Ecstasy) unknown) (Negative) (unknown) (no (unknown) (unknown) Ur MDMA Scrn (units (u nknown) date) (Ecstasy) Negative unknown) (Negative) (unknown) (no (unknown) (unknown) Ur Oxycodone (units (u nknown) date) Screen (Negative) unknown) (unknown) (no (unknown) (unknown) Ur Oxycodone (units (u nknown) date) Screen Negative unknown) (Negative) (unknown) (no (unknown) (unknown) Ur Phencyclidine (units (unknown) date) Scrn (Negative) unknown) (unknown) (no (unknown) (unknown) Ur Phencyclidine (units (unknown) date) Scrn Negative unknown) (Negative) (unknown) (no (unknown) (unknown) Ur Specific (units (un known) date) [place] <=1.005 unknown) (1.000-1.035) (unknown) (no (unknown) (unknown) Ur Specific (units (un known) date) [place] unknown) (1.000-1.035) (unknown) (no (unknown) (unknown) Ur Squamous Epith (units (unknown) date) Cells (0-5/HPF) unknown) (unknown) (no (unknown) (unknown) Ur Squamous Epith (units (unknown) date) Cells None seen unknown) (0-5/HPF) (unknown) (no (unknown) (unknown) Urine Appearance (units (unknown) date) Clear unknown) (unknown) (no (unknown) (unknown) Urine Appearance (units (unknown) date) unknown) (unknown) (no (unknown) (unknown) Urine Bacteria (units (unknown) date) (None) unknown) (unknown) (no (unknown) (unknown) Urine Bacteria (units (unknown) date) Occasional (0-1) unknown) (None) (unknown) (no (unknown) (unknown) Urine Bilirubin (units (unknown) date) (NEGATIVE) unknown) (unknown) (no (unknown) (unknown) Urine Bilirubin (units (unknown) date) Negative (NEGATIVE) unknown) (unknown) (no (unknown) (unknown) Urine Cocaine (units ( unknown) date) Screen (Negative) unknown) (unknown) (no (unknown) (unknown) Urine Cocaine (units ( unknown) date) Screen Negative unknown) (Negative) (unknown) (no (unknown) (unknown) Urine Color Lt. (units (unknown) date) yellow unknown) (unknown) (no (unknown) (unknown) Urine Color (units (un known) date) unknown) (unknown) (no (unknown) (unknown) Urine Glucose (UA) (units (unknown) date) (Negative) g/dL unknown) (unknown) (no (unknown) (unknown) Urine Glucose (UA) (units (unknown) date) Negative (Negative) unknown) g/dL (unknown) (no (unknown) (unknown) Urine Ketones (units ( unknown) date) (NEGATIVE) unknown) (unknown) (no (unknown) (unknown) Urine Ketones (units ( unknown) date) Negative (NEGATIVE) unknown) (unknown) (no (unknown) (unknown) Urine Methadone (units (unknown) date) Screen (Negative) unknown) (unknown) (no (unknown) (unknown) Urine Methadone (units (unknown) date) Screen Negative unknown) (Negative) (unknown) (no (unknown) (unknown) Urine Nitrate (units ( unknown) date) (Negative) unknown) (unknown) (no (unknown) (unknown) Urine Nitrate (units ( unknown) date) Negative (Negative) unknown) (unknown) (no (unknown) (unknown) Urine Occult Blood (units (unknown) date) (Negative) unknown) (unknown) (no (unknown) (unknown) Urine Occult Blood (units (unknown) date) Negative (Negative) unknown) (unknown) (no (unknown) (unknown) Urine Protein (units ( unknown) date) (Negative) unknown) (unknown) (no (unknown) (unknown) Urine Protein (units ( unknown) date) Negative (Negative) unknown) (unknown) (no (unknown) (unknown) Urine RBC (units (unkn own) date) (0-5/HPF) unknown) (unknown) (no (unknown) (unknown) Urine RBC None (units (unknown) date) seen (0-5/HPF) unknown) (unknown) (no (unknown) (unknown) Urine Urobilinogen (units (unknown) date) (0.2) E.U./dL unknown) (unknown) (no (unknown) (unknown) Urine Urobilinogen (units (unknown) date) 0.2 (0.2) E.U./dL unknown) (unknown) (no (unknown) (unknown) Urine WBC (units (unkn own) date) (0-5/HPF) unknown) (unknown) (no (unknown) (unknown) Urine WBC 0-1/hpf (units (unknown) date) (0-5/HPF) unknown) (unknown) (no (unknown) (unknown) Urine pH (4.5-8.0) (units (unknown) date) unknown) (unknown) (no (unknown) (unknown) Urine pH 6.0 (units (u nknown) date) (4.5-8.0) unknown) (unknown) (no (unknown) (unknown) Vital Signs - 8 hr (units (unknown) date) unknown) (unknown) (no (unknown) (unknown) Vital Signs (units (un known) date) unknown) (unknown) (no (unknown) (unknown) Vital signs: (units (u nknown) date) unknown) (unknown) (no (unknown) (unknown) WBC (4.5-11.0) (units (unknown) date) X103/uL unknown) (unknown) (no (unknown) (unknown) WBC 5.3 (4.5-11.0) (units (unknown) date) X103/uL unknown) (unknown) (no (unknown) (unknown) [Embedded Image (units (unknown) date) Not Available] unknown) (unknown) (no (unknown) (unknown) a psychiatrist or (units (unknown) date) prescribing unknown) therapist, this is the person who prescribes her (unknown) (no (unknown) (unknown) a.m. this morning (units (unknown) date) as scheduled as unknown) well as tomorrow. Return if worse if any (unknown) (no (unknown) (unknown) a.m. this morning (units (unknown) date) with counselor on unknown) the [employer]. She has another appointment (unknown) (no (unknown) (unknown) able to contact (units (unknown) date) for ride home and unknown) see if she can arrange for somebody to stay (unknown) (no (unknown) (unknown) abnormalities. (units (unknown) date) Near clear signs of unknown) alcohol withdrawal (unknown) (no (unknown) (unknown) additional (units (unk nown) date) outpatient follow unknown) up (unknown) (no (unknown) (unknown) afternoon with a (units (unknown) date) call to confirm the unknown) time for that appointment. I am concerned (unknown) (no (unknown) (unknown) again. (units (unkno wn) date) unknown) (unknown) (no (unknown) (unknown) alcohol intake (units (unknown) date) frequency: 3 or unknown) more drinks per day (unknown) (no (unknown) (unknown) alcohol intake: (units (unknown) date) current unknown) (unknown) (no (unknown) (unknown) alcohol use, (units (u nknown) date) unknown) (unknown) (no (unknown) (unknown) alcohol. She (units (u nknown) date) states she has a unknown) lot going on for the past 10 years. She states (unknown) (no (unknown) (unknown) all of her flu (units (unknown) date) vaccine and acutely unknown) intoxicated. After discussion with poison (unknown) (no (unknown) (unknown) autistic son here (units (unknown) date) living with her and unknown) a 3rd son as well. Her is (unknown) (no (unknown) (unknown) bed. She believes (units (unknown) date) she has an unknown) appointment with her therapist (unsure if this is (unknown) (no (unknown) (unknown) been reviewed with (units (unknown) date) patient as well as unknown) indications for ED re-evaluation and (unknown) (no (unknown) (unknown) being discharged (units (unknown) date) from the emergency unknown) department around noon she moved into her (unknown) (no (unknown) (unknown) brought in by a (units (unknown) date) friend to [facility] around 8:15 p.m. with (unknown) (no (unknown) (unknown) chronic alcohol (units (unknown) date) use unknown) (unknown) (no (unknown) (unknown) cleared and then (units (unknown) date) seen by social unknown) workers the morning of 03/27. At that time she (unknown) (no (unknown) (unknown) complaints of (units ( unknown) date) acute alcohol unknown) intoxication and suicidal ideation without discrete (unknown) (no (unknown) (unknown) condominium and (units (unknown) date) moving out of the unknown) home shared with her current . She is (unknown) (no (unknown) (unknown) control she was (units (unknown) date) observed in the unknown) emergency department for 8 hours medically (unknown) (no (unknown) (unknown) her, he (units (unknown) date) revealed to her unknown) that he is yu. She has appointment at 10:30 (unknown) (no (unknown) (unknown) enough to end up (units (unknown) date) in the emergency unknown) department unless than 8 hours is unclear and (unknown) (no (unknown) (unknown) fluconazole 150 mg (units (unknown) date) tablet 150 mg PO unknown) DAILY #1 tab 11/03/21 (unknown) (no (unknown) (unknown) fluconazole (units (un known) date) [Diflucan] 150 mg unknown) tablet (unknown) (no (unknown) (unknown) fluvoxamine 50 mg (units (unknown) date) tablet 50 mg DAILY unknown) 10/24/21 11/24/21 (unknown) (no (unknown) (unknown) fluvoxamine 50 mg (units (unknown) date) tablet unknown) (unknown) (no (unknown) (unknown) fluvoxamine) via (units (unknown) date) telemedicine at unknown) 1:00 p.m. on the . She states that she (unknown) (no (unknown) (unknown) had no fever, (units ( unknown) date) cough, chills, unknown) abdominal pain. It is not complaining of headache. (unknown) (no (unknown) (unknown) her son is in a (units (unknown) date) mental hospital in unknown) [place] and will not talk to her. She has an (unknown) (no (unknown) (unknown) here, has been (units (unknown) date) cooperative. unknown) Awaiting for social work evaluation. Patient (unknown) (no (unknown) (unknown) household members: (units (unknown) date) spouse and children unknown) (unknown) (no (unknown) (unknown) hydroxyzine HCl 25 (units (unknown) date) mg tablet 25 mg PO unknown) BEDTIME PRN sleep #7 tabs 10/24/21 (unknown) (no (unknown) (unknown) hydroxyzine HCl 25 (units (unknown) date) mg tablet unknown) (unknown) (no (unknown) (unknown) including her 8 (units (unknown) date) hour observation unknown) stay and social Work consult are reviewed (unknown) (no (unknown) (unknown) insight overall (units (unknown) date) unknown) (unknown) (no (unknown) (unknown) instability (units (un known) date) unknown) (unknown) (no (unknown) (unknown) intoxicated with (units (unknown) date) alcohol and unknown) suicidal. She was seen at [facility] on 03/26 (unknown) (no (unknown) (unknown) is able to speak (units (unknown) date) in complete unknown) sentences (unknown) (no (unknown) (unknown) is not clear to me (units (unknown) date) that she is safe to unknown) be discharged home with current social (unknown) (no (unknown) (unknown) issues surrounding (units (unknown) date) her ex-, unknown) oldest children and current with whom (unknown) (no (unknown) (unknown) losartan 50 mg (units (unknown) date) tablet 50 mg PO unknown) DAILY 10/17/21 11/24/21 (unknown) (no (unknown) (unknown) losartan 50 mg (units (unknown) date) tablet unknown) (unknown) (no (unknown) (unknown) needs external (units (unknown) date) validation. unknown) (unknown) (no (unknown) (unknown) negative. Patient (units (unknown) date) [facility] (unknown) (no (unknown) (unknown) new condominium. (units (unknown) date) How she managed to unknown) do all of that and become intoxicated (unknown) (no (unknown) (unknown) noon. She already (units (unknown) date) has appointment at unknown) 10:30 a.m. this morning. She has friends (unknown) (no (unknown) (unknown) not drink alcohol. (units (unknown) date) unknown) (unknown) (no (unknown) (unknown) not sure if there (units (unknown) date) simply unknown) or truly heading for divorce. There (unknown) (no (unknown) (unknown) of the night (units (u nknown) date) before had her unknown) psychiatry televideo appointment moved to March (unknown) (no (unknown) (unknown) others. She does (units (unknown) date) not wish to speak unknown) with our social work that will be here at (unknown) (no (unknown) (unknown) own bed?. Today, (units (unknown) date) she reports no unknown) pills or other medications, no cutting. She is (unknown) (no (unknown) (unknown) plan and no (units (un known) date) reports of taking unknown) any additional pills. (unknown) (no (unknown) (unknown) plan. When (units (unk nown) date) discussing options unknown) for her later in the evening after she would (unknown) (no (unknown) (unknown) prescription (units (u nknown) date) antidepressants and unknown) discharge from the hospital less than 8 hours (unknown) (no (unknown) (unknown) prior to (units (unkno wn) date) presentation at [facility]) [facility] ([facility]) (no (unknown) (unknown) questions or (units (u nknown) date) concerns. Return unknown) immediately any thoughts hurting yourself. Do (unknown) (no (unknown) (unknown) re-evaluated (units (u nknown) date) patient. She is unknown) denying any thoughts of hurting herself or others. (unknown) (no (unknown) (unknown) separation from (units (unknown) date) her , unknown) question of alcohol use disorder, overall social (unknown) (no (unknown) (unknown) she ended up back (units (unknown) date) in the emergency unknown) room in 8 hours with similar suicidal (unknown) (no (unknown) (unknown) she is . (units (unknown) date) When she wakes up unknown) again, we will see what friends she is (unknown) (no (unknown) (unknown) significant (units (un known) date) withdrawal. She unknown) still seems moderately despondent but denies any (unknown) (no (unknown) (unknown) situational (units (un known) date) disturbance, unknown) suicidal ideation, suicide attempt (unknown) (no (unknown) (unknown) sobered she states (units (unknown) date) she is tired and unknown) simply wants to go home and sleep in her own (unknown) (no (unknown) (unknown) social work (units (un known) date) evaluation. Patient unknown) is medically cleared. Alcohol levels are (unknown) (no (unknown) (unknown) speech, no (units (unk nown) date) auditory or visual unknown) hallucinations (unknown) (no (unknown) (unknown) stated she does (units (unknown) date) have appointment unknown) with therapist/counselin g this afternoon (unknown) (no (unknown) (unknown) states that she is (units (unknown) date) been struggling unknown) with multiple acute situational stressors. (unknown) (no (unknown) (unknown) suicidal or (units (un known) date) homicidal ideation. unknown) Plan is to go home, take shower, had something (unknown) (no (unknown) (unknown) suicide ideations (units (unknown) date) yesterday unknown) afternoon. Patient has been resting comfortably (unknown) (no (unknown) (unknown) that care for her (units (unknown) date) and will drive her. unknown) (unknown) (no (unknown) (unknown) that included in (units (unknown) date) the HPI. unknown) (unknown) (no (unknown) (unknown) that she had this (units (unknown) date) exact same unknown) presentation for the social services designee at would be and (unknown) (no (unknown) (unknown) thoughts she was (units (unknown) date) unable to give a unknown) reasonable answer and simply states she wants (unknown) (no (unknown) (unknown) to eat and keep (units (unknown) date) her appointment unknown) with her therapist at 1:00 p.m. later this (unknown) (no (unknown) (unknown) to go home and (units (unknown) date) ?take a hot shower, unknown) eat and drink something and go to bed in her (unknown) (no (unknown) (unknown) tomorrow as well. (units (unknown) date) She denies denies unknown) denies any thoughts of hurting herself or (unknown) (no (unknown) (unknown) updating her on (units (unknown) date) any medical unknown) abnormalities. She is currently moving into her own (unknown) (no (unknown) (unknown) wants to be home (units (unknown) date) to have dinner with unknown) her son and her . When asked how (unknown) (no (unknown) (unknown) was felt to be (units (unknown) date) clinically sober, unknown) feeling better did not have much recollection (unknown) (no (unknown) (unknown) when she returned (units (unknown) date) from the hospital unknown) yesterday afternoon. She only drank (unknown) (no (unknown) (unknown) with her for the (units (unknown) date) day to make sure unknown) that she is safe and does not began drinking (unknown) (no (unknown) (unknown) within 8 hours was (units (unknown) date) again drinking and unknown) considering killing herself. 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 At this (units (unknown) date) point I do not unknown) believe that she is gravely disabled however it Result panel 116 (unknown) (no (unknown) (unknown) (no value) (units (unk nown) date) unknown) (unknown) (no (unknown) (unknown) <Cristian Leigh (units (unknown) date) - Last Filed: unknown) 03/28/22 11:21> (unknown) (no (unknown) (unknown) <Electronically (units (unknown) date) signed by Cristian unknown) MD Lu> (unknown) (no (unknown) (unknown) <Yajaira Rose (units (unknown) date) - Last Filed: unknown) 03/28/22 03:02> (unknown) (no (unknown) (unknown) (Diflucan) (units (unk nown) date) unknown) (unknown) (no (unknown) (unknown) 03/27/22 03/27/22 (units (unknown) date) 03/27/22 unknown) Range/Units (unknown) (no (unknown) (unknown) 03/27/22 03/27/22 (units (unknown) date) 03/28/22 unknown) Range/Units (unknown) (no (unknown) (unknown) 03/27/22 21:19 (units (unknown) date) unknown) (unknown) (no (unknown) (unknown) 03/28/22 1121 (units ( unknown) date) unknown) (unknown) (no (unknown) (unknown) 03/28/22 (units (unkno wn) date) unknown) (unknown) (no (unknown) (unknown) 04:00 03/28/22 (units (unknown) date) unknown) (unknown) (no (unknown) (unknown) 09:30 (units (unkno wn) date) unknown) (unknown) (no (unknown) (unknown) 10:30 a.m. this (units (unknown) date) morning with her unknown) social services designee/provider. Patient was just seen (unknown) (no (unknown) (unknown) 150 mg PO DAILY (units (unknown) date) Qty: 1 1RF unknown) (unknown) (no (unknown) (unknown) 19, is apparently (units (unknown) date) in the hospital and unknown) wants ?nothing to do with her? including (unknown) (no (unknown) (unknown) 20:23 20:30 21:19 (units (unknown) date) unknown) (unknown) (no (unknown) (unknown) 21:19 21:19 02:09 (units (unknown) date) unknown) (unknown) (no (unknown) (unknown) 23 with an overdose (units (unknown) date) with reportedly unknown) benzodiazepines including Valium and Ativan, (unknown) (no (unknown) (unknown) 24th was felt to (units (unknown) date) be forward thinking unknown) and planning and safe for discharge home. (unknown) (no (unknown) (unknown) 25 mg PO BEDTIME (units (unknown) date) PRN (Reason: sleep) unknown) Qty: 7 0RF (unknown) (no (unknown) (unknown) 3am she has gone (units (unknown) date) back to sleep and I unknown) am not going to disturb her at this time. (unknown) (no (unknown) (unknown) 41-year-old woman (units (unknown) date) with a history of unknown) depression was brought in by her friend (unknown) (no (unknown) (unknown) 50 mg DAILY (units (un known) date) unknown) (unknown) (no (unknown) (unknown) 50 mg PO DAILY (units (unknown) date) unknown) (unknown) (no (unknown) (unknown) 8-year-old son has (units (unknown) date) said he wants to unknown) live with both of them. She said that after (unknown) (no (unknown) (unknown) ALT (<35) IU/L (units (unknown) date) unknown) (unknown) (no (unknown) (unknown) ALT 28 (<35) IU/L (units (unknown) date) unknown) (unknown) (no (unknown) (unknown) AST (14-36) IU/L (units (unknown) date) unknown) (unknown) (no (unknown) (unknown) AST 38 H (14-36) (units (unknown) date) IU/L unknown) (unknown) (no (unknown) (unknown) Abdomen: Soft, (units (unknown) date) nontender, good unknown) bowel tones, no flank pain (unknown) (no (unknown) (unknown) Abnormal uterine (units (unknown) date) bleeding (AUB) unknown) (unknown) (no (unknown) (unknown) Acetaminophen < 10 (units (unknown) date) (10-30) ug/mL unknown) (unknown) (no (unknown) (unknown) Acetaminophen (units ( unknown) date) (10-30) ug/mL unknown) (unknown) (no (unknown) (unknown) Activity (units (unkno wn) date) Restrictions/Additi unknown) onal Instructions: (unknown) (no (unknown) (unknown) Age/Sex: 41 / F (units (unknown) date) unknown) (unknown) (no (unknown) (unknown) Albumin (3.5-5.0) (units (unknown) date) g/dL unknown) (unknown) (no (unknown) (unknown) Albumin 4.0 (units (un known) date) (3.5-5.0) g/dL unknown) (unknown) (no (unknown) (unknown) Albumin/Globulin (units (unknown) date) Ratio (1.0-2.8) unknown) (unknown) (no (unknown) (unknown) Albumin/Globulin (units (unknown) date) Ratio 1.2 (1.0-2.8) unknown) (unknown) (no (unknown) (unknown) Alcohol (units (unkno wn) date) intoxication, Major unknown) depression, Acute situational disturbance, (unknown) (no (unknown) (unknown) Alkaline (units (unkno wn) date) Phosphatase unknown) (38-126) U/L (unknown) (no (unknown) (unknown) Alkaline (units (unkno wn) date) Phosphatase 52 unknown) (38-126) U/L (unknown) (no (unknown) (unknown) Allergies (units (unkn own) date) unknown) (unknown) (no (unknown) (unknown) Allergy/AdvReac (units (unknown) date) Type Severity unknown) Reaction Status Date / Time (unknown) (no (unknown) (unknown) Anesthesia (units (unk nown) date) unknown) (unknown) (no (unknown) (unknown) Apparently her (units (unknown) date) ex- and 2 unknown) older children live in [place], the oldest son, (unknown) (no (unknown) (unknown) Awaiting for (units (u nknown) date) social work unknown) evaluation. Patient stated she does have appointment (unknown) (no (unknown) (unknown) BUN (7-17) mg/dL (units (unknown) date) unknown) (unknown) (no (unknown) (unknown) BUN 15 (7-17) (units ( unknown) date) mg/dL unknown) (unknown) (no (unknown) (unknown) BUN/Creatinine (units (unknown) date) Ratio (6-22) unknown) (unknown) (no (unknown) (unknown) BUN/Creatinine (units (unknown) date) Ratio 20.3 (6-22) unknown) (unknown) (no (unknown) (unknown) Baso # (Auto) (units ( unknown) date) (0-100) /uL unknown) (unknown) (no (unknown) (unknown) Baso # (Auto) 100 (units (unknown) date) (0-100) /uL unknown) (unknown) (no (unknown) (unknown) Baso % (Auto) (units ( unknown) date) (0-2) % unknown) (unknown) (no (unknown) (unknown) Baso % (Auto) 1.3 (units (unknown) date) (0-2) % unknown) (unknown) (no (unknown) (unknown) Blood Pressure (units (unknown) date) 114/79 118/72 unknown) (unknown) (no (unknown) (unknown) Blood Pressure (units (unknown) date) 99/55 L 03/27/22 unknown) 20:15 (unknown) (no (unknown) (unknown) Breast cancer (units ( unknown) date) unknown) (unknown) (no (unknown) (unknown) Breast cyst (units (un known) date) () unknown) (unknown) (no (unknown) (unknown) CBC shows no (units (u nknown) date) leukocytosis but unknown) she does have a mild macrocytosis consistent with (unknown) (no (unknown) (unknown) CC: Acute alcohol (units (unknown) date) intoxication with unknown) suicidal ideation (unknown) (no (unknown) (unknown) Calcium (8.4-10.2) (units (unknown) date) mg/dL unknown) (unknown) (no (unknown) (unknown) Calcium 8.7 (units (un known) date) (8.4-10.2) mg/dL unknown) (unknown) (no (unknown) (unknown) Carbon Dioxide (units (unknown) date) (22-32) mmol/L unknown) (unknown) (no (unknown) (unknown) Carbon Dioxide 21 (units (unknown) date) L (22-32) mmol/L unknown) (unknown) (no (unknown) (unknown) Cardiac: Regular (units (unknown) date) rate and rhythm no unknown) murmurs no bruits (unknown) (no (unknown) (unknown) Chemistries are (units (unknown) date) reassuring with unknown) minimally elevated AST again consistent with (unknown) (no (unknown) (unknown) Chief Complaint: (units (unknown) date) Psychiatric unknown) Symptoms (unknown) (no (unknown) (unknown) Chloride (98-107) (units (unknown) date) mmol/L unknown) (unknown) (no (unknown) (unknown) Chloride 106 (units (u nknown) date) (98-107) mmol/L unknown) (unknown) (no (unknown) (unknown) Clinical (units (unkno wn) date) Impression: unknown) (unknown) (no (unknown) (unknown) Complicating (units (u nknown) date) co-morbidities: unknown) Similar with overdose with benzodiazepines and her (unknown) (no (unknown) (unknown) Consultations: (units (unknown) date) unknown) (unknown) (no (unknown) (unknown) Corroborating (units ( unknown) date) data: unknown) (unknown) (no (unknown) (unknown) Course Narrative: (units (unknown) date) unknown) (unknown) (no (unknown) (unknown) Course (units (unkno wn) date) unknown) (unknown) (no (unknown) (unknown) Creatinine (units (unk nown) date) (0.52-1.04) mg/dL unknown) (unknown) (no (unknown) (unknown) Creatinine 0.74 (units (unknown) date) (0.52-1.04) mg/dL unknown) (unknown) (no (unknown) (unknown) : 1980 (units (unknown) date) Acct:[id number] unknown) (unknown) (no (unknown) (unknown) Data collected (units (unknown) date) from: patient, unknown) (unknown) (no (unknown) (unknown) Date of Service: (units (unknown) date) 03/27/22 unknown) (unknown) (no (unknown) (unknown) Departure (units (unkn own) date) unknown) (unknown) (no (unknown) (unknown) Depression with (units (unknown) date) suicidal ideation unknown) (unknown) (no (unknown) (unknown) Depression (units (unk nown) date) unknown) (unknown) (no (unknown) (unknown) Differential (units (u nknown) date) considered: Major unknown) depression, alcohol use disorder, acute (unknown) (no (unknown) (unknown) Discharge Plan (units (unknown) date) unknown) (unknown) (no (unknown) (unknown) Discontinued (units (u nknown) date) Medications unknown) (unknown) (no (unknown) (unknown) Discussion: 9:15 (units (unknown) date) a.m.. Patient is unknown) awake alert oriented x4. Clear speech. I (unknown) (no (unknown) (unknown) Discussion: (units (un known) date) unknown) (unknown) (no (unknown) (unknown) Disposition: see (units (unknown) date) below, along with unknown) detailed discharge instructions that have (unknown) (no (unknown) (unknown) Documented By: AP (units (unknown) date) unknown) (unknown) (no (unknown) (unknown) Documented By: RB (units (unknown) date) unknown) (unknown) (no (unknown) (unknown) ER Physician: (units ( unknown) date) Cristian Leigh MD unknown) (unknown) (no (unknown) (unknown) Emergency Report (units (unknown) date) unknown) (unknown) (no (unknown) (unknown) Eos # (Auto) (units (u nknown) date) (0-450) /uL unknown) (unknown) (no (unknown) (unknown) Eos # (Auto) 200 (units (unknown) date) (0-450) /uL unknown) (unknown) (no (unknown) (unknown) Eos % (Auto) (2-4) (units (unknown) date) % unknown) (unknown) (no (unknown) (unknown) Eos % (Auto) 2.9 (units (unknown) date) (2-4) % unknown) (unknown) (no (unknown) (unknown) Estimated GFR > 60 (units (unknown) date) (>60) mL/min unknown) (unknown) (no (unknown) (unknown) Estimated GFR (units ( unknown) date) (>60) mL/min unknown) (unknown) (no (unknown) (unknown) Ethyl Alcohol ( - (units (unknown) date) 10) mg/dL unknown) (unknown) (no (unknown) (unknown) Ethyl Alcohol 124 (units (unknown) date) H < 10 ( - 10) unknown) mg/dL (unknown) (no (unknown) (unknown) Exam documented (units (unknown) date) above, pertinent unknown) findings include: Fatigued appearing, poor (unknown) (no (unknown) (unknown) Exam (units (unkno wn) date) unknown) (unknown) (no (unknown) (unknown) Extremities: No (units (unknown) date) trauma, well unknown) perfused, no evidence of self cutting (unknown) (no (unknown) (unknown) Family History (units (unknown) date) (Updated 10/02/21 @ unknown) 19:54 by Alysia Hernandez MD) (unknown) (no (unknown) (unknown) Free T4 (units (unkno wn) date) (0.78-2.19) ng/dL unknown) (unknown) (no (unknown) (unknown) Free T4 0.89 (units (u nknown) date) (0.78-2.19) ng/dL unknown) (unknown) (no (unknown) (unknown) Full and (units (unkno wn) date) symmetrical air unknown) movement (unknown) (no (unknown) (unknown) General (units (unkno wn) date) unknown) (unknown) (no (unknown) (unknown) General: Appears (units (unknown) date) Emotionally and unknown) physically exhausted, moderate eye contact she (unknown) (no (unknown) (unknown) Globulin (1.7-4.1) (units (unknown) date) g/dL unknown) (unknown) (no (unknown) (unknown) Globulin 3.3 (units (u nknown) date) (1.7-4.1) g/dL unknown) (unknown) (no (unknown) (unknown) Glucose (70-100) (units (unknown) date) mg/dL unknown) (unknown) (no (unknown) (unknown) Glucose 79 (units (unk nown) date) (70-100) mg/dL unknown) (unknown) (no (unknown) (unknown) HEENT: Moist (units (u nknown) date) mucous membranes, unknown) normal sclera with reactive pupils, (unknown) (no (unknown) (unknown) HPI - Psych (units (un known) date) unknown) (unknown) (no (unknown) (unknown) HPI Narrative: (units (unknown) date) unknown) (unknown) (no (unknown) (unknown) Hct (36-46) % (units ( unknown) date) unknown) (unknown) (no (unknown) (unknown) Hct 39.1 (36-46) % (units (unknown) date) unknown) (unknown) (no (unknown) (unknown) Herpes (-2000) (units (unknown) date) unknown) (unknown) (no (unknown) (unknown) Hgb (12.0-16.0) (units (unknown) date) g/dL unknown) (unknown) (no (unknown) (unknown) Hgb 13.3 (units (unkno wn) date) (12.0-16.0) g/dL unknown) (unknown) (no (unknown) (unknown) History of Present (units (unknown) date) Illness unknown) (unknown) (no (unknown) (unknown) Home Medications (units (unknown) date) unknown) (unknown) (no (unknown) (unknown) Hyperlipidemia (units (unknown) date) unknown) (unknown) (no (unknown) (unknown) Hypertension (units (u nknown) date) unknown) (unknown) (no (unknown) (unknown) I would feel much (units (unknown) date) more comfortable if unknown) she had a chance to talk to our social (unknown) (no (unknown) (unknown) Initial Vital (units ( unknown) date) Signs unknown) (unknown) (no (unknown) (unknown) Initial Vital (units ( unknown) date) Signs: unknown) (unknown) (no (unknown) (unknown) Instructions: DI (units (unknown) date) for Depression -- unknown) Adult, DI for Alcohol Use Disorder, DI for (unknown) (no (unknown) (unknown) [facility] (units (unknown) date) [address] unknown) [place] [address] (unknown) (no (unknown) (unknown) March 28, 2022 (units (unknown) date) at 7:00 a.m.. Sign unknown) out from Dr. Stark, patient awaiting for (unknown) (no (unknown) (unknown) Lab Data (units (unkno wn) date) unknown) (unknown) (no (unknown) (unknown) Lab Results (units (un known) date) unknown) (unknown) (no (unknown) (unknown) Lab Test results (units (unknown) date) independently unknown) reviewed as above. Pertinent findings: (unknown) (no (unknown) (unknown) Label Comments: (units (unknown) date) unknown) (unknown) (no (unknown) (unknown) Labs: (units (unkno wn) date) unknown) (unknown) (no (unknown) (unknown) Last Admin: (units (un known) date) 03/28/22 03:55 unknown) Dose: 21 mg (unknown) (no (unknown) (unknown) Last Admin: (units (un known) date) 03/28/22 09:25 unknown) Dose: 1 mg (unknown) (no (unknown) (unknown) Last Admin: (units (un known) date) 03/28/22 09:25 unknown) Dose: 21 mg (unknown) (no (unknown) (unknown) Lorazepam (units (unkn own) date) (Lorazepam 0.5 Mg unknown) Tablet) 1 mg PO NOW ONE (unknown) (no (unknown) (unknown) Lymph # (Auto) (units (unknown) date) (7465-8434) /uL unknown) (unknown) (no (unknown) (unknown) Lymph # (Auto) (units (unknown) date) 1500 ([id number]) unknown) /uL (unknown) (no (unknown) (unknown) Lymph % (Auto) (units (unknown) date) (25-40) % unknown) (unknown) (no (unknown) (unknown) Lymph % (Auto) (units (unknown) date) 28.5 (25-40) % unknown) (unknown) (no (unknown) (unknown) [id number] (units (unk nown) date) unknown) (unknown) (no (unknown) (unknown) MCH (26-34) PG (units (unknown) date) unknown) (unknown) (no (unknown) (unknown) MCH 35.0 H (26-34) (units (unknown) date) PG unknown) (unknown) (no (unknown) (unknown) MCHC (30-36) % (units (unknown) date) unknown) (unknown) (no (unknown) (unknown) MCHC 34.0 (30-36) (units (unknown) date) % unknown) (unknown) (no (unknown) (unknown) MCV (80-100) fL (units (unknown) date) unknown) (unknown) (no (unknown) (unknown) MCV 103.0 H (units (un known) date) (80-100) fL unknown) (unknown) (no (unknown) (unknown) MDM - Psych (units (un known) date) unknown) (unknown) (no (unknown) (unknown) MDM Narrative (units ( unknown) date) unknown) (unknown) (no (unknown) (unknown) Medical History (units (unknown) date) (Updated 03/28/22 @ unknown) 03:02 by Yajaira Rose MD) (unknown) (no (unknown) (unknown) Medical decision (units (unknown) date) making narrative: unknown) (unknown) (no (unknown) (unknown) Medical records (units (unknown) date) reviewed: Records unknown) from [facility] Emergency Department (unknown) (no (unknown) (unknown) Medication (units (unk nown) date) Instructions unknown) Recorded Confirmed (unknown) (no (unknown) (unknown) Medication (units (unk nown) date) Instructions unknown) Recorded (unknown) (no (unknown) (unknown) Mental health (units ( unknown) date) problem unknown) (unknown) (no (unknown) (unknown) Rubina Mullins PA-C (units (unknown) date) [Primary Care unknown) Provider] (unknown) (no (unknown) (unknown) Mode of arrival: (units (unknown) date) Ambulatory unknown) (unknown) (no (unknown) (unknown) [place] # (Auto) (units ( unknown) date) (0-900) /uL unknown) (unknown) (no (unknown) (unknown) [place] # (Auto) 500 (units (unknown) date) (0-900) /uL unknown) (unknown) (no (unknown) (unknown) [place] % (Auto) (units ( unknown) date) (3-14) % unknown) (unknown) (no (unknown) (unknown) [place] % (Auto) 9.7 (units (unknown) date) (3-14) % unknown) (unknown) (no (unknown) (unknown) Mother Diabetes (units (unknown) date) mellitus unknown) (unknown) (no (unknown) (unknown) Narrative: (units (unk nown) date) unknown) (unknown) (no (unknown) (unknown) Neurologic: (units (un known) date) Grossly unknown) neurologically intact with no obvious asymmetries or (unknown) (no (unknown) (unknown) Neut # (Auto) (units ( unknown) date) (9114-7674) /uL unknown) (unknown) (no (unknown) (unknown) Neut # (Auto) 3100 (units (unknown) date) (0381-3882) /uL unknown) (unknown) (no (unknown) (unknown) Neut % (Auto) (units ( unknown) date) (50-75) % unknown) (unknown) (no (unknown) (unknown) Neut % (Auto) 57.6 (units (unknown) date) (50-75) % unknown) (unknown) (no (unknown) (unknown) Nicotine (Nicotine (units (unknown) date) 21 Mg Patch) 21 mg unknown) TOP NOW ONE (unknown) (no (unknown) (unknown) No Action (units (unkn own) date) unknown) (unknown) (no (unknown) (unknown) No Known Drug (units ( unknown) date) Allergies Allergy unknown) Verified 11/24/21 10:21 (unknown) (no (unknown) (unknown) No driving or (units ( unknown) date) operating machinery unknown) today. Please see your counselor at 10:30 (unknown) (no (unknown) (unknown) No evidence of (units (unknown) date) thyroid abnormality unknown) (unknown) (no (unknown) (unknown) No significant (units (unknown) date) medical problems unknown) (unknown) (no (unknown) (unknown) Once she has (units (u nknown) date) sobered slightly we unknown) are able to have a reasonable discussion. She (unknown) (no (unknown) (unknown) Ordered: (units (unkno wn) date) unknown) (unknown) (no (unknown) (unknown) Orders (units (unkno wn) date) unknown) (unknown) (no (unknown) (unknown) Oxygen Delivery (units (unknown) date) Method 03/27/22 unknown) 20:15 (unknown) (no (unknown) (unknown) Oxygen Delivery (units (unknown) date) Method Room Air unknown) Room Air (unknown) (no (unknown) (unknown) PTSD (units (unkno wn) date) (post-traumatic unknown) stress disorder) (unknown) (no (unknown) (unknown) Patient (units (unkno wn) date) Disposition: Home unknown) (unknown) (no (unknown) (unknown) Patient History (units (unknown) date) unknown) (unknown) (no (unknown) (unknown) Patient: (units (unkno wn) date) Cate Holcomb unknown) MR#: (unknown) (no (unknown) (unknown) Pelvic pain (units (un known) date) unknown) (unknown) (no (unknown) (unknown) Plt Count (units (unkn own) date) (150-400) X103/uL unknown) (unknown) (no (unknown) (unknown) Plt Count 254 (units ( unknown) date) (150-400) X103/uL unknown) (unknown) (no (unknown) (unknown) Potassium (units (unkn own) date) (3.4-5.1) mmol/L unknown) (unknown) (no (unknown) (unknown) Potassium 3.9 (units ( unknown) date) (3.4-5.1) mmol/L unknown) (unknown) (no (unknown) (unknown) Prescriptions: (units (unknown) date) unknown) (unknown) (no (unknown) (unknown) Previous Rx's (units ( unknown) date) unknown) (unknown) (no (unknown) (unknown) Psoriasis (units (unkn own) date) unknown) (unknown) (no (unknown) (unknown) Psych: Poor (units (un known) date) overall insight, unknown) significant denial, poor eye contact, fluent (unknown) (no (unknown) (unknown) Pulse Oximetry 96 (units (unknown) date) 03/27/22 20:15 unknown) (unknown) (no (unknown) (unknown) Pulse Oximetry 98 (units (unknown) date) 97 unknown) (unknown) (no (unknown) (unknown) Pulse Rate 64 (units ( unknown) date) 03/27/22 20:15 unknown) (unknown) (no (unknown) (unknown) Pulse Rate 72 76 (units (unknown) date) unknown) (unknown) (no (unknown) (unknown) RBC (4.0-5.2) (units ( unknown) date) X106/uL unknown) (unknown) (no (unknown) (unknown) RBC 3.80 L (units (unk nown) date) (4.0-5.2) X106/uL unknown) (unknown) (no (unknown) (unknown) RDW (11.6-14.8) % (units (unknown) date) unknown) (unknown) (no (unknown) (unknown) RDW 14.0 (units (unkno wn) date) (11.6-14.8) % unknown) (unknown) (no (unknown) (unknown) Re-evaluations: (units (unknown) date) Patient is unknown) clinically and medically sober with no signs of (unknown) (no (unknown) (unknown) Referrals: (units (unk nown) date) unknown) (unknown) (no (unknown) (unknown) Related Data (units (u nknown) date) unknown) (unknown) (no (unknown) (unknown) Remainder of (units (u nknown) date) complete review of unknown) systems is otherwise unremarkable except for (unknown) (no (unknown) (unknown) Repeat alcohol (units (unknown) date) level at 2:30 a.m. unknown) is less than 0. (unknown) (no (unknown) (unknown) Respiratory Rate (units (unknown) date) 18 03/27/22 20:15 unknown) (unknown) (no (unknown) (unknown) Respiratory Rate (units (unknown) date) 18 20 unknown) (unknown) (no (unknown) (unknown) Respiratory: Lungs (units (unknown) date) are clear to unknown) auscultation, no wheezing no rales no rhonchi. (unknown) (no (unknown) (unknown) Review of Systems (units (unknown) date) unknown) (unknown) (no (unknown) (unknown) Salicylates < 1.0 (units (unknown) date) (<20) mg/dL unknown) (unknown) (no (unknown) (unknown) Salicylates (<20) (units (unknown) date) mg/dL unknown) (unknown) (no (unknown) (unknown) Severe (units (unkno wn) date) dysmenorrhea unknown) (unknown) (no (unknown) (unknown) She simply states (units (unknown) date) that she wants to unknown) harm herself but does not have a discrete (unknown) (no (unknown) (unknown) She states she (units (unknown) date) ?lost yesterday unknown) with all of the pressure with her family ? (unknown) (no (unknown) (unknown) She was discharged (units (unknown) date) from would be unknown) emergency department around noon and was (unknown) (no (unknown) (unknown) Signed By: (units (unk nown) date) unknown) (unknown) (no (unknown) (unknown) Skin: Warm and (units (unknown) date) dry, no rashes unknown) (unknown) (no (unknown) (unknown) Smoking Status: (units (unknown) date) Former smoker unknown) (unknown) (no (unknown) (unknown) Social History (units (unknown) date) (Reviewed 02/18/20 unknown) @ 12:52 by EDDIE Castillo) (unknown) (no (unknown) (unknown) Social (units (unkno wn) date) determinants of unknown) health that may influence the patients condition: Recent (unknown) (no (unknown) (unknown) Sodium (137-145) (units (unknown) date) mmol/L unknown) (unknown) (no (unknown) (unknown) Sodium 140 (units (unk nown) date) (137-145) mmol/L unknown) (unknown) (no (unknown) (unknown) Source: patient (units (unknown) date) unknown) (unknown) (no (unknown) (unknown) Stand Alone Forms: (units (unknown) date) Patient Portal/API unknown) (unknown) (no (unknown) (unknown) Stated Complaint: (units (unknown) date) suicidal unknown) (unknown) (no (unknown) (unknown) Status post (units (un known) date) laparoscopic unknown) supracervical hysterectomy (10/27/21) (unknown) (no (unknown) (unknown) Stop: 03/28/22 (units (unknown) date) 03:41 unknown) (unknown) (no (unknown) (unknown) Stop: 03/28/22 (units (unknown) date) 09:16 unknown) (unknown) (no (unknown) (unknown) Substance Use (units ( unknown) date) Type: does not use unknown) (unknown) (no (unknown) (unknown) Suicidal (units (unkno wn) date) Ideation-Adult unknown) (unknown) (no (unknown) (unknown) Surgical History (units (unknown) date) (Updated 11/25/21 @ unknown) 22:07 by Alysia Hernandez MD) (unknown) (no (unknown) (unknown) TAKE 1 TABLET BY (units (unknown) date) MOUTH EVERY EVENING unknown) (unknown) (no (unknown) (unknown) TSH (0.47-4.68) (units (unknown) date) uIU/mL unknown) (unknown) (no (unknown) (unknown) TSH 1.17 (units (unkno wn) date) (0.47-4.68) uIU/mL unknown) (unknown) (no (unknown) (unknown) Temperature 97.9 F (units (unknown) date) 03/27/22 20:15 unknown) (unknown) (no (unknown) (unknown) Temperature 98.2 F (units (unknown) date) unknown) (unknown) (no (unknown) (unknown) Time Seen by (units (u nknown) date) Provider: 03/27/22 unknown) 22:28 (unknown) (no (unknown) (unknown) Total Bilirubin (units (unknown) date) (0.2-1.3) mg/dL unknown) (unknown) (no (unknown) (unknown) Total Bilirubin (units (unknown) date) 0.4 (0.2-1.3) mg/dL unknown) (unknown) (no (unknown) (unknown) Total Protein (units ( unknown) date) (6.3-8.2) g/dL unknown) (unknown) (no (unknown) (unknown) Total Protein 7.3 (units (unknown) date) (6.3-8.2) g/dL unknown) (unknown) (no (unknown) (unknown) Treatments: (units (un known) date) Sobering unknown) (unknown) (no (unknown) (unknown) Treatments: (units (un known) date) Sobering, Ativan unknown) for anxiety. Nicotine patch. (unknown) (no (unknown) (unknown) U Benzodiazepines (units (unknown) date) Scrn (Negative) unknown) (unknown) (no (unknown) (unknown) U Benzodiazepines (units (unknown) date) Scrn Positive H unknown) (Negative) (unknown) (no (unknown) (unknown) U Marijuana (THC) (units (unknown) date) Screen (Negative) unknown) (unknown) (no (unknown) (unknown) U Marijuana (THC) (units (unknown) date) Screen Negative unknown) (Negative) (unknown) (no (unknown) (unknown) U Methamphetamines (units (unknown) date) Scrn (Negative) unknown) (unknown) (no (unknown) (unknown) U Methamphetamines (units (unknown) date) Scrn Negative unknown) (Negative) (unknown) (no (unknown) (unknown) U Opiates 300ng/mL (units (unknown) date) cut (Negative) unknown) (unknown) (no (unknown) (unknown) U Opiates 300ng/mL (units (unknown) date) cut Negative unknown) (Negative) (unknown) (no (unknown) (unknown) U Tricyclic (units (un known) date) Antidepress unknown) (Negative) (unknown) (no (unknown) (unknown) U Tricyclic (units (un known) date) Antidepress unknown) Negative (Negative) (unknown) (no (unknown) (unknown) Ur Amphetamines (units (unknown) date) Screen (Negative) unknown) (unknown) (no (unknown) (unknown) Ur Amphetamines (units (unknown) date) Screen Negative unknown) (Negative) (unknown) (no (unknown) (unknown) Ur Barbiturates (units (unknown) date) Screen (Negative) unknown) (unknown) (no (unknown) (unknown) Ur Barbiturates (units (unknown) date) Screen Negative unknown) (Negative) (unknown) (no (unknown) (unknown) Ur Culture (units (unk nown) date) Indicated? Cult not unknown) indicated (unknown) (no (unknown) (unknown) Ur Culture (units (unk nown) date) Indicated? unknown) (unknown) (no (unknown) (unknown) Ur Leukocyte (units (u nknown) date) Esterase (NEGATIVE) unknown) (unknown) (no (unknown) (unknown) Ur Leukocyte (units (u nknown) date) Esterase Negative unknown) (NEGATIVE) (unknown) (no (unknown) (unknown) Ur MDMA Scrn (units (u nknown) date) (Ecstasy) unknown) (Negative) (unknown) (no (unknown) (unknown) Ur MDMA Scrn (units (u nknown) date) (Ecstasy) Negative unknown) (Negative) (unknown) (no (unknown) (unknown) Ur Oxycodone (units (u nknown) date) Screen (Negative) unknown) (unknown) (no (unknown) (unknown) Ur Oxycodone (units (u nknown) date) Screen Negative unknown) (Negative) (unknown) (no (unknown) (unknown) Ur Phencyclidine (units (unknown) date) Scrn (Negative) unknown) (unknown) (no (unknown) (unknown) Ur Phencyclidine (units (unknown) date) Scrn Negative unknown) (Negative) (unknown) (no (unknown) (unknown) Ur Specific (units (un known) date) [place] <=1.005 unknown) (1.000-1.035) (unknown) (no (unknown) (unknown) Ur Specific (units (un known) date) [place] unknown) (1.000-1.035) (unknown) (no (unknown) (unknown) Ur Squamous Epith (units (unknown) date) Cells (0-5/HPF) unknown) (unknown) (no (unknown) (unknown) Ur Squamous Epith (units (unknown) date) Cells None seen unknown) (0-5/HPF) (unknown) (no (unknown) (unknown) Urine Appearance (units (unknown) date) Clear unknown) (unknown) (no (unknown) (unknown) Urine Appearance (units (unknown) date) unknown) (unknown) (no (unknown) (unknown) Urine Bacteria (units (unknown) date) (None) unknown) (unknown) (no (unknown) (unknown) Urine Bacteria (units (unknown) date) Occasional (0-1) unknown) (None) (unknown) (no (unknown) (unknown) Urine Bilirubin (units (unknown) date) (NEGATIVE) unknown) (unknown) (no (unknown) (unknown) Urine Bilirubin (units (unknown) date) Negative (NEGATIVE) unknown) (unknown) (no (unknown) (unknown) Urine Cocaine (units ( unknown) date) Screen (Negative) unknown) (unknown) (no (unknown) (unknown) Urine Cocaine (units ( unknown) date) Screen Negative unknown) (Negative) (unknown) (no (unknown) (unknown) Urine Color Lt. (units (unknown) date) yellow unknown) (unknown) (no (unknown) (unknown) Urine Color (units (un known) date) unknown) (unknown) (no (unknown) (unknown) Urine Glucose (UA) (units (unknown) date) (Negative) g/dL unknown) (unknown) (no (unknown) (unknown) Urine Glucose (UA) (units (unknown) date) Negative (Negative) unknown) g/dL (unknown) (no (unknown) (unknown) Urine Ketones (units ( unknown) date) (NEGATIVE) unknown) (unknown) (no (unknown) (unknown) Urine Ketones (units ( unknown) date) Negative (NEGATIVE) unknown) (unknown) (no (unknown) (unknown) Urine Methadone (units (unknown) date) Screen (Negative) unknown) (unknown) (no (unknown) (unknown) Urine Methadone (units (unknown) date) Screen Negative unknown) (Negative) (unknown) (no (unknown) (unknown) Urine Nitrate (units ( unknown) date) (Negative) unknown) (unknown) (no (unknown) (unknown) Urine Nitrate (units ( unknown) date) Negative (Negative) unknown) (unknown) (no (unknown) (unknown) Urine Occult Blood (units (unknown) date) (Negative) unknown) (unknown) (no (unknown) (unknown) Urine Occult Blood (units (unknown) date) Negative (Negative) unknown) (unknown) (no (unknown) (unknown) Urine Protein (units ( unknown) date) (Negative) unknown) (unknown) (no (unknown) (unknown) Urine Protein (units ( unknown) date) Negative (Negative) unknown) (unknown) (no (unknown) (unknown) Urine RBC (units (unkn own) date) (0-5/HPF) unknown) (unknown) (no (unknown) (unknown) Urine RBC None (units (unknown) date) seen (0-5/HPF) unknown) (unknown) (no (unknown) (unknown) Urine Urobilinogen (units (unknown) date) (0.2) E.U./dL unknown) (unknown) (no (unknown) (unknown) Urine Urobilinogen (units (unknown) date) 0.2 (0.2) E.U./dL unknown) (unknown) (no (unknown) (unknown) Urine WBC (units (unkn own) date) (0-5/HPF) unknown) (unknown) (no (unknown) (unknown) Urine WBC 0-1/hpf (units (unknown) date) (0-5/HPF) unknown) (unknown) (no (unknown) (unknown) Urine pH (4.5-8.0) (units (unknown) date) unknown) (unknown) (no (unknown) (unknown) Urine pH 6.0 (units (u nknown) date) (4.5-8.0) unknown) (unknown) (no (unknown) (unknown) Vital Signs - 8 hr (units (unknown) date) unknown) (unknown) (no (unknown) (unknown) Vital Signs (units (un known) date) unknown) (unknown) (no (unknown) (unknown) Vital signs: (units (u nknown) date) unknown) (unknown) (no (unknown) (unknown) WBC (4.5-11.0) (units (unknown) date) X103/uL unknown) (unknown) (no (unknown) (unknown) WBC 5.3 (4.5-11.0) (units (unknown) date) X103/uL unknown) (unknown) (no (unknown) (unknown) [Embedded Image (units (unknown) date) Not Available] unknown) (unknown) (no (unknown) (unknown) a psychiatrist or (units (unknown) date) prescribing unknown) therapist, this is the person who prescribes her (unknown) (no (unknown) (unknown) a.m. this morning (units (unknown) date) as scheduled as unknown) well as tomorrow. Return if worse if any (unknown) (no (unknown) (unknown) a.m. this morning (units (unknown) date) with counselor on unknown) the [employer] base. She has another appointment (unknown) (no (unknown) (unknown) able to contact (units (unknown) date) for ride home and unknown) see if she can arrange for somebody to stay (unknown) (no (unknown) (unknown) abnormalities. (units (unknown) date) Near clear signs of unknown) alcohol withdrawal (unknown) (no (unknown) (unknown) additional (units (unk nown) date) outpatient follow unknown) up (unknown) (no (unknown) (unknown) afternoon with a (units (unknown) date) call to confirm the unknown) time for that appointment. I am concerned (unknown) (no (unknown) (unknown) afternoon. Patient (units (unknown) date) has been resting unknown) comfortably here, has been cooperative. (unknown) (no (unknown) (unknown) again. (units (unkno wn) date) unknown) (unknown) (no (unknown) (unknown) alcohol intake (units (unknown) date) frequency: 3 or unknown) more drinks per day (unknown) (no (unknown) (unknown) alcohol intake: (units (unknown) date) current unknown) (unknown) (no (unknown) (unknown) alcohol use, (units (u nknown) date) unknown) (unknown) (no (unknown) (unknown) alcohol. She (units (u nknown) date) states she has a unknown) lot going on for the past 10 years. She states (unknown) (no (unknown) (unknown) all of her flu (units (unknown) date) vaccine and acutely unknown) intoxicated. After discussion with poison (unknown) (no (unknown) (unknown) autistic son here (units (unknown) date) living with her and unknown) a 3rd son as well. Her is (unknown) (no (unknown) (unknown) bed. She believes (units (unknown) date) she has an unknown) appointment with her therapist (unsure if this is (unknown) (no (unknown) (unknown) been reviewed with (units (unknown) date) patient as well as unknown) indications for ED re-evaluation and (unknown) (no (unknown) (unknown) being discharged (units (unknown) date) from the emergency unknown) department around noon she moved into her (unknown) (no (unknown) (unknown) brought in by a (units (unknown) date) friend to [facility] around 8:15 p.m. with (unknown) (no (unknown) (unknown) chronic alcohol (units (unknown) date) use unknown) (unknown) (no (unknown) (unknown) cleared and then (units (unknown) date) seen by social unknown) workers the morning of 03/27. At that time she (unknown) (no (unknown) (unknown) complaints of (units ( unknown) date) acute alcohol unknown) intoxication and suicidal ideation without discrete (unknown) (no (unknown) (unknown) condominium and (units (unknown) date) moving out of the unknown) home shared with her current . She is (unknown) (no (unknown) (unknown) control she was (units (unknown) date) observed in the unknown) emergency department for 8 hours medically (unknown) (no (unknown) (unknown) her, he (units (unknown) date) revealed to her unknown) that he is yu. 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 (units (unknown) date) However drank unknown) alcohol again with suicide ideations yesterday (unknown) (no (unknown) (unknown) enough to end up (units (unknown) date) in the emergency unknown) department unless than 8 hours is unclear and (unknown) (no (unknown) (unknown) fluconazole 150 mg (units (unknown) date) tablet 150 mg PO unknown) DAILY #1 tab 11/03/21 (unknown) (no (unknown) (unknown) fluconazole (units (un known) date) [Diflucan] 150 mg unknown) tablet (unknown) (no (unknown) (unknown) fluvoxamine 50 mg (units (unknown) date) tablet 50 mg DAILY unknown) 10/24/21 11/24/21 (unknown) (no (unknown) (unknown) fluvoxamine 50 mg (units (unknown) date) tablet unknown) (unknown) (no (unknown) (unknown) fluvoxamine) via (units (unknown) date) telemedicine at unknown) 1:00 p.m. on the . She states that she (unknown) (no (unknown) (unknown) from that (units (unkn own) date) facility. Patient unknown) was not detainable. Patient went home, had a (unknown) (no (unknown) (unknown) had no fever, (units ( unknown) date) cough, chills, unknown) abdominal pain. It is not complaining of headache. (unknown) (no (unknown) (unknown) her son is in a (units (unknown) date) mental hospital in unknown) [place] and will not talk to her. She has an (unknown) (no (unknown) (unknown) household members: (units (unknown) date) spouse and children unknown) (unknown) (no (unknown) (unknown) hydroxyzine HCl 25 (units (unknown) date) mg tablet 25 mg PO unknown) BEDTIME PRN sleep #7 tabs 10/24/21 (unknown) (no (unknown) (unknown) hydroxyzine HCl 25 (units (unknown) date) mg tablet unknown) (unknown) (no (unknown) (unknown) including her 8 (units (unknown) date) hour observation unknown) stay and social Work consult are reviewed (unknown) (no (unknown) (unknown) insight overall (units (unknown) date) unknown) (unknown) (no (unknown) (unknown) instability (units (un known) date) unknown) (unknown) (no (unknown) (unknown) intoxicated with (units (unknown) date) alcohol and unknown) suicidal. She was seen at [facility] on 03/26 (unknown) (no (unknown) (unknown) is able to speak (units (unknown) date) in complete unknown) sentences (unknown) (no (unknown) (unknown) is not clear to me (units (unknown) date) that she is safe to unknown) be discharged home with current social (unknown) (no (unknown) (unknown) issues surrounding (units (unknown) date) her ex-, unknown) oldest children and current with whom (unknown) (no (unknown) (unknown) losartan 50 mg (units (unknown) date) tablet 50 mg PO unknown) DAILY 10/17/21 11/24/21 (unknown) (no (unknown) (unknown) losartan 50 mg (units (unknown) date) tablet unknown) (unknown) (no (unknown) (unknown) needs external (units (unknown) date) validation. unknown) (unknown) (no (unknown) (unknown) negative. If (units (u nknown) date) patient is unknown) nonsuicidal, likely be able to discharge home without (unknown) (no (unknown) (unknown) new condominium. (units (unknown) date) How she managed to unknown) do all of that and become intoxicated (unknown) (no (unknown) (unknown) noon. She already (units (unknown) date) has appointment at unknown) 10:30 a.m. this morning. She has friends (unknown) (no (unknown) (unknown) not drink alcohol. (units (unknown) date) unknown) (unknown) (no (unknown) (unknown) not sure if there (units (unknown) date) simply unknown) or truly heading for divorce. There (unknown) (no (unknown) (unknown) of the night (units (u nknown) date) before had her unknown) psychiatry televideo appointment moved to March (unknown) (no (unknown) (unknown) others. She does (units (unknown) date) not wish to speak unknown) with our social work that will be here at (unknown) (no (unknown) (unknown) [facility] (units (unknown) date) yesterday for unknown) alcohol Ativan Prozac overdose. Was discharge (unknown) (no (unknown) (unknown) own bed?. Today, (units (unknown) date) she reports no unknown) pills or other medications, no cutting. She is (unknown) (no (unknown) (unknown) plan and no (units (un known) date) reports of taking unknown) any additional pills. (unknown) (no (unknown) (unknown) plan. When (units (unk nown) date) discussing options unknown) for her later in the evening after she would (unknown) (no (unknown) (unknown) prescription (units (u nknown) date) antidepressants and unknown) discharge from the hospital less than 8 hours (unknown) (no (unknown) (unknown) prior to (units (unkno wn) date) presentation at unknown) [facility] ([facility]) (no (unknown) (unknown) questions or (units (u nknown) date) concerns. Return unknown) immediately any thoughts hurting yourself. Do (unknown) (no (unknown) (unknown) re-evaluated (units (u nknown) date) patient. She is unknown) denying any thoughts of hurting herself or others. (unknown) (no (unknown) (unknown) separation from (units (unknown) date) her , unknown) question of alcohol use disorder, overall social (unknown) (no (unknown) (unknown) she ended up back (units (unknown) date) in the emergency unknown) room in 8 hours with similar suicidal (unknown) (no (unknown) (unknown) she is . (units (unknown) date) When she wakes up unknown) again, we will see what friends she is (unknown) (no (unknown) (unknown) significant (units (un known) date) withdrawal. She unknown) still seems moderately despondent but denies any (unknown) (no (unknown) (unknown) situational (units (un known) date) disturbance, unknown) suicidal ideation, suicide attempt (unknown) (no (unknown) (unknown) sobered she states (units (unknown) date) she is tired and unknown) simply wants to go home and sleep in her own (unknown) (no (unknown) (unknown) social work (units (un known) date) evaluation from our unknown) services due to patient having appointment at (unknown) (no (unknown) (unknown) social work (units (un known) date) evaluation. Patient unknown) is medically cleared. Alcohol levels are (unknown) (no (unknown) (unknown) speech, no (units (unk nown) date) auditory or visual unknown) hallucinations (unknown) (no (unknown) (unknown) states that she is (units (unknown) date) been struggling unknown) with multiple acute situational stressors. (unknown) (no (unknown) (unknown) suicidal or (units (un known) date) homicidal ideation. unknown) Plan is to go home, take shower, had something (unknown) (no (unknown) (unknown) that care for her (units (unknown) date) and will drive her. unknown) (unknown) (no (unknown) (unknown) that included in (units (unknown) date) the HPI. unknown) (unknown) (no (unknown) (unknown) that she had this (units (unknown) date) exact same unknown) presentation for the social services designee at would be and (unknown) (no (unknown) (unknown) thoughts she was (units (unknown) date) unable to give a unknown) reasonable answer and simply states she wants (unknown) (no (unknown) (unknown) to eat and keep (units (unknown) date) her appointment unknown) with her therapist at 1:00 p.m. later this (unknown) (no (unknown) (unknown) to go home and (units (unknown) date) ?take a hot shower, unknown) eat and drink something and go to bed in her (unknown) (no (unknown) (unknown) tomorrow as well. (units (unknown) date) She denies denies unknown) denies any thoughts of hurting herself or (unknown) (no (unknown) (unknown) updating her on (units (unknown) date) any medical unknown) abnormalities. She is currently moving into her own (unknown) (no (unknown) (unknown) wants to be home (units (unknown) date) to have dinner with unknown) her son and her . When asked how (unknown) (no (unknown) (unknown) was felt to be (units (unknown) date) clinically sober, unknown) feeling better did not have much recollection (unknown) (no (unknown) (unknown) when she returned (units (unknown) date) from the hospital unknown) yesterday afternoon. She only drank (unknown) (no (unknown) (unknown) with her for the (units (unknown) date) day to make sure unknown) that she is safe and does not began drinking (unknown) (no (unknown) (unknown) with (units (unkno wn) date) therapist/counselin unknown) g this afternoon (unknown) (no (unknown) (unknown) within 8 hours was (units (unknown) date) again drinking and unknown) considering killing herself. 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 At this (units (unknown) date) point I do not unknown) believe that she is gravely disabled however it Result panel 117 (unknown) (no (unknown) (unknown) (no value) (units (unk nown) date) unknown) (unknown) (no (unknown) (unknown) <Cristian Leigh (units (unknown) date) - Last Filed: unknown) 03/28/22 11:21> (unknown) (no (unknown) (unknown) <Electronically (units (unknown) date) signed by Cristian unknown) MD Lu> (unknown) (no (unknown) (unknown) <Electronically (units (unknown) date) signed by Yajaira Smith unknown) MD Rose> (unknown) (no (unknown) (unknown) <Yajaira Rose, (units (unknown) date) - Last Filed: unknown) 03/28/22 18:07> (unknown) (no (unknown) (unknown) (Diflucan) (units (unk nown) date) unknown) (unknown) (no (unknown) (unknown) 03/27/22 03/27/22 (units (unknown) date) 03/27/22 unknown) Range/Units (unknown) (no (unknown) (unknown) 03/27/22 03/27/22 (units (unknown) date) 03/28/22 unknown) Range/Units (unknown) (no (unknown) (unknown) 03/27/22 21:19 (units (unknown) date) unknown) (unknown) (no (unknown) (unknown) 03/28/22 1121 (units ( unknown) date) unknown) (unknown) (no (unknown) (unknown) 03/28/22 1808 (units ( unknown) date) unknown) (unknown) (no (unknown) (unknown) 03/28/22 (units (unkno wn) date) unknown) (unknown) (no (unknown) (unknown) 04:00 03/28/22 (units (unknown) date) unknown) (unknown) (no (unknown) (unknown) 09:30 (units (unkno wn) date) unknown) (unknown) (no (unknown) (unknown) 10:30 a.m. this (units (unknown) date) morning with her unknown) social services designee/provider. Patient was just seen (unknown) (no (unknown) (unknown) 150 mg PO DAILY (units (unknown) date) Qty: 1 1RF unknown) (unknown) (no (unknown) (unknown) 19, is apparently (units (unknown) date) in the hospital and unknown) wants ?nothing to do with her? including (unknown) (no (unknown) (unknown) 20:23 20:30 21:19 (units (unknown) date) unknown) (unknown) (no (unknown) (unknown) 21:19 21:19 02:09 (units (unknown) date) unknown) (unknown) (no (unknown) (unknown) 23 with an overdose (units (unknown) date) with reportedly unknown) benzodiazepines including Valium and Ativan, (unknown) (no (unknown) (unknown) 24 was felt to (units (unknown) date) be forward thinking unknown) and planning and safe for discharge home. (unknown) (no (unknown) (unknown) 25 mg PO BEDTIME (units (unknown) date) PRN (Reason: sleep) unknown) Qty: 7 0RF (unknown) (no (unknown) (unknown) 3am she has gone (units (unknown) date) back to sleep and I unknown) am not going to disturb her at this time. (unknown) (no (unknown) (unknown) 41-year-old woman (units (unknown) date) with a history of unknown) depression was brought in by her friend (unknown) (no (unknown) (unknown) 50 mg DAILY (units (un known) date) unknown) (unknown) (no (unknown) (unknown) 50 mg PO DAILY (units (unknown) date) unknown) (unknown) (no (unknown) (unknown) 8-year-old son has (units (unknown) date) said he wants to unknown) live with both of them. She said that after (unknown) (no (unknown) (unknown) ALT (<35) IU/L (units (unknown) date) unknown) (unknown) (no (unknown) (unknown) ALT 28 (<35) IU/L (units (unknown) date) unknown) (unknown) (no (unknown) (unknown) AST (14-36) IU/L (units (unknown) date) unknown) (unknown) (no (unknown) (unknown) AST 38 H (14-36) (units (unknown) date) IU/L unknown) (unknown) (no (unknown) (unknown) Abdomen: Soft, (units (unknown) date) nontender, good unknown) bowel tones, no flank pain (unknown) (no (unknown) (unknown) Abnormal uterine (units (unknown) date) bleeding (AUB) unknown) (unknown) (no (unknown) (unknown) Acetaminophen < 10 (units (unknown) date) (10-30) ug/mL unknown) (unknown) (no (unknown) (unknown) Acetaminophen (units ( unknown) date) (10-30) ug/mL unknown) (unknown) (no (unknown) (unknown) Activity (units (unkno wn) date) Restrictions/Additi unknown) onal Instructions: (unknown) (no (unknown) (unknown) Age/Sex: 41 / F (units (unknown) date) unknown) (unknown) (no (unknown) (unknown) Albumin (3.5-5.0) (units (unknown) date) g/dL unknown) (unknown) (no (unknown) (unknown) Albumin 4.0 (units (un known) date) (3.5-5.0) g/dL unknown) (unknown) (no (unknown) (unknown) Albumin/Globulin (units (unknown) date) Ratio (1.0-2.8) unknown) (unknown) (no (unknown) (unknown) Albumin/Globulin (units (unknown) date) Ratio 1.2 (1.0-2.8) unknown) (unknown) (no (unknown) (unknown) Alcohol (units (unkno wn) date) intoxication, Major unknown) depression, Acute situational disturbance, (unknown) (no (unknown) (unknown) Alkaline (units (unkno wn) date) Phosphatase unknown) (38-126) U/L (unknown) (no (unknown) (unknown) Alkaline (units (unkno wn) date) Phosphatase 52 unknown) (38-126) U/L (unknown) (no (unknown) (unknown) Allergies (units (unkn own) date) unknown) (unknown) (no (unknown) (unknown) Allergy/AdvReac (units (unknown) date) Type Severity unknown) Reaction Status Date / Time (unknown) (no (unknown) (unknown) Anesthesia (units (unk nown) date) unknown) (unknown) (no (unknown) (unknown) Apparently her (units (unknown) date) ex- and 2 unknown) older children live in [place], the oldest son, (unknown) (no (unknown) (unknown) Awaiting for (units (u nknown) date) social work unknown) evaluation. Patient stated she does have appointment (unknown) (no (unknown) (unknown) BUN (7-17) mg/dL (units (unknown) date) unknown) (unknown) (no (unknown) (unknown) BUN 15 (7-17) (units ( unknown) date) mg/dL unknown) (unknown) (no (unknown) (unknown) BUN/Creatinine (units (unknown) date) Ratio (6-22) unknown) (unknown) (no (unknown) (unknown) BUN/Creatinine (units (unknown) date) Ratio 20.3 (6-22) unknown) (unknown) (no (unknown) (unknown) Baso # (Auto) (units ( unknown) date) (0-100) /uL unknown) (unknown) (no (unknown) (unknown) Baso # (Auto) 100 (units (unknown) date) (0-100) /uL unknown) (unknown) (no (unknown) (unknown) Baso % (Auto) (units ( unknown) date) (0-2) % unknown) (unknown) (no (unknown) (unknown) Baso % (Auto) 1.3 (units (unknown) date) (0-2) % unknown) (unknown) (no (unknown) (unknown) Blood Pressure (units (unknown) date) 114/79 118/72 unknown) (unknown) (no (unknown) (unknown) Blood Pressure (units (unknown) date) 99/55 L 03/27/22 unknown) 20:15 (unknown) (no (unknown) (unknown) Breast cancer (units ( unknown) date) unknown) (unknown) (no (unknown) (unknown) Breast cyst (units (un known) date) () unknown) (unknown) (no (unknown) (unknown) CBC shows no (units (u nknown) date) leukocytosis but unknown) she does have a mild macrocytosis consistent with (unknown) (no (unknown) (unknown) CC: Acute alcohol (units (unknown) date) intoxication with unknown) suicidal ideation (unknown) (no (unknown) (unknown) Calcium (8.4-10.2) (units (unknown) date) mg/dL unknown) (unknown) (no (unknown) (unknown) Calcium 8.7 (units (un known) date) (8.4-10.2) mg/dL unknown) (unknown) (no (unknown) (unknown) Carbon Dioxide (units (unknown) date) (22-32) mmol/L unknown) (unknown) (no (unknown) (unknown) Carbon Dioxide 21 (units (unknown) date) L (22-32) mmol/L unknown) (unknown) (no (unknown) (unknown) Cardiac: Regular (units (unknown) date) rate and rhythm no unknown) murmurs no bruits (unknown) (no (unknown) (unknown) Chemistries are (units (unknown) date) reassuring with unknown) minimally elevated AST again consistent with (unknown) (no (unknown) (unknown) Chief Complaint: (units (unknown) date) Psychiatric unknown) Symptoms (unknown) (no (unknown) (unknown) Chloride (98-107) (units (unknown) date) mmol/L unknown) (unknown) (no (unknown) (unknown) Chloride 106 (units (u nknown) date) (98-107) mmol/L unknown) (unknown) (no (unknown) (unknown) Clinical (units (unkno wn) date) Impression: unknown) (unknown) (no (unknown) (unknown) Complicating (units (u nknown) date) co-morbidities: unknown) Similar with overdose with benzodiazepines and her (unknown) (no (unknown) (unknown) Consultations: (units (unknown) date) unknown) (unknown) (no (unknown) (unknown) Corroborating (units ( unknown) date) data: unknown) (unknown) (no (unknown) (unknown) Course Narrative: (units (unknown) date) unknown) (unknown) (no (unknown) (unknown) Course (units (unkno wn) date) unknown) (unknown) (no (unknown) (unknown) Creatinine (units (unk nown) date) (0.52-1.04) mg/dL unknown) (unknown) (no (unknown) (unknown) Creatinine 0.74 (units (unknown) date) (0.52-1.04) mg/dL unknown) (unknown) (no (unknown) (unknown) : 1980 (units (unknown) date) Acct:[id number] unknown) (unknown) (no (unknown) (unknown) Data collected (units (unknown) date) from: patient, unknown) (unknown) (no (unknown) (unknown) Date of Service: (units (unknown) date) 03/27/22 unknown) (unknown) (no (unknown) (unknown) Departure (units (unkn own) date) unknown) (unknown) (no (unknown) (unknown) Depression with (units (unknown) date) suicidal ideation unknown) (unknown) (no (unknown) (unknown) Depression (units (unk nown) date) unknown) (unknown) (no (unknown) (unknown) Differential (units (u nknown) date) considered: Major unknown) depression, alcohol use disorder, acute (unknown) (no (unknown) (unknown) Discharge Plan (units (unknown) date) unknown) (unknown) (no (unknown) (unknown) Discontinued (units (u nknown) date) Medications unknown) (unknown) (no (unknown) (unknown) Discussion: 9:15 (units (unknown) date) a.m.. Patient is unknown) awake alert oriented x4. Clear speech. I (unknown) (no (unknown) (unknown) Discussion: (units (un known) date) unknown) (unknown) (no (unknown) (unknown) Disposition: see (units (unknown) date) below, along with unknown) detailed discharge instructions that have (unknown) (no (unknown) (unknown) Documented By: AP (units (unknown) date) unknown) (unknown) (no (unknown) (unknown) Documented By: RB (units (unknown) date) unknown) (unknown) (no (unknown) (unknown) ER Physician: (units ( unknown) date) Cristian Leigh MD unknown) (unknown) (no (unknown) (unknown) Emergency Report (units (unknown) date) unknown) (unknown) (no (unknown) (unknown) Eos # (Auto) (units (u nknown) date) (0-450) /uL unknown) (unknown) (no (unknown) (unknown) Eos # (Auto) 200 (units (unknown) date) (0-450) /uL unknown) (unknown) (no (unknown) (unknown) Eos % (Auto) (2-4) (units (unknown) date) % unknown) (unknown) (no (unknown) (unknown) Eos % (Auto) 2.9 (units (unknown) date) (2-4) % unknown) (unknown) (no (unknown) (unknown) Estimated GFR > 60 (units (unknown) date) (>60) mL/min unknown) (unknown) (no (unknown) (unknown) Estimated GFR (units ( unknown) date) (>60) mL/min unknown) (unknown) (no (unknown) (unknown) Ethyl Alcohol ( - (units (unknown) date) 10) mg/dL unknown) (unknown) (no (unknown) (unknown) Ethyl Alcohol 124 (units (unknown) date) H < 10 ( - 10) unknown) mg/dL (unknown) (no (unknown) (unknown) Exam documented (units (unknown) date) above, pertinent unknown) findings include: Fatigued appearing, poor (unknown) (no (unknown) (unknown) Exam (units (unkno wn) date) unknown) (unknown) (no (unknown) (unknown) Extremities: No (units (unknown) date) trauma, well unknown) perfused, no evidence of self cutting (unknown) (no (unknown) (unknown) Family History (units (unknown) date) (Updated 10/02/21 @ unknown) 19:54 by Alysia Hernandez MD) (unknown) (no (unknown) (unknown) Free T4 (units (unkno wn) date) (0.78-2.19) ng/dL unknown) (unknown) (no (unknown) (unknown) Free T4 0.89 (units (u nknown) date) (0.78-2.19) ng/dL unknown) (unknown) (no (unknown) (unknown) Full and (units (unkno wn) date) symmetrical air unknown) movement (unknown) (no (unknown) (unknown) General (units (unkno wn) date) unknown) (unknown) (no (unknown) (unknown) General: Appears (units (unknown) date) Emotionally and unknown) physically exhausted, moderate eye contact she (unknown) (no (unknown) (unknown) Globulin (1.7-4.1) (units (unknown) date) g/dL unknown) (unknown) (no (unknown) (unknown) Globulin 3.3 (units (u nknown) date) (1.7-4.1) g/dL unknown) (unknown) (no (unknown) (unknown) Glucose (70-100) (units (unknown) date) mg/dL unknown) (unknown) (no (unknown) (unknown) Glucose 79 (units (unk nown) date) (70-100) mg/dL unknown) (unknown) (no (unknown) (unknown) HEENT: Moist (units (u nknown) date) mucous membranes, unknown) normal sclera with reactive pupils, (unknown) (no (unknown) (unknown) HPI - Psych (units (un known) date) unknown) (unknown) (no (unknown) (unknown) HPI Narrative: (units (unknown) date) unknown) (unknown) (no (unknown) (unknown) Hct (36-46) % (units ( unknown) date) unknown) (unknown) (no (unknown) (unknown) Hct 39.1 (36-46) % (units (unknown) date) unknown) (unknown) (no (unknown) (unknown) Herpes (-2000) (units (unknown) date) unknown) (unknown) (no (unknown) (unknown) Hgb (12.0-16.0) (units (unknown) date) g/dL unknown) (unknown) (no (unknown) (unknown) Hgb 13.3 (units (unkno wn) date) (12.0-16.0) g/dL unknown) (unknown) (no (unknown) (unknown) History of Present (units (unknown) date) Illness unknown) (unknown) (no (unknown) (unknown) Home Medications (units (unknown) date) unknown) (unknown) (no (unknown) (unknown) Hyperlipidemia (units (unknown) date) unknown) (unknown) (no (unknown) (unknown) Hypertension (units (u nknown) date) unknown) (unknown) (no (unknown) (unknown) I would feel much (units (unknown) date) more comfortable if unknown) she had a chance to talk to our social (unknown) (no (unknown) (unknown) Initial Vital (units ( unknown) date) Signs unknown) (unknown) (no (unknown) (unknown) Initial Vital (units ( unknown) date) Signs: unknown) (unknown) (no (unknown) (unknown) Instructions: DI (units (unknown) date) for Depression -- unknown) Adult, DI for Alcohol Use Disorder, DI for (unknown) (no (unknown) (unknown) [facility] (units (unknown) date) [address] [place] [address] unknown) [place] [address] (unknown) (no (unknown) (unknown) March 28, 2022 (units (unknown) date) at 7:00 a.m.. Sign unknown) out from Dr. Stark, patient awaiting for (unknown) (no (unknown) (unknown) Lab Data (units (unkno wn) date) unknown) (unknown) (no (unknown) (unknown) Lab Results (units (un known) date) unknown) (unknown) (no (unknown) (unknown) Lab Test results (units (unknown) date) independently unknown) reviewed as above. Pertinent findings: (unknown) (no (unknown) (unknown) Label Comments: (units (unknown) date) unknown) (unknown) (no (unknown) (unknown) Labs: (units (unkno wn) date) unknown) (unknown) (no (unknown) (unknown) Last Admin: (units (un known) date) 03/28/22 03:55 unknown) Dose: 21 mg (unknown) (no (unknown) (unknown) Last Admin: (units (un known) date) 03/28/22 09:25 unknown) Dose: 1 mg (unknown) (no (unknown) (unknown) Last Admin: (units (un known) date) 03/28/22 09:25 unknown) Dose: 21 mg (unknown) (no (unknown) (unknown) Lorazepam (units (unkn own) date) (Lorazepam 0.5 Mg unknown) Tablet) 1 mg PO NOW ONE (unknown) (no (unknown) (unknown) Lymph # (Auto) (units (unknown) date) (5328-6037) /uL unknown) (unknown) (no (unknown) (unknown) Lymph # (Auto) (units (unknown) date) 1500 (2153-9205) unknown) /uL (unknown) (no (unknown) (unknown) Lymph % (Auto) (units (unknown) date) (25-40) % unknown) (unknown) (no (unknown) (unknown) Lymph % (Auto) (units (unknown) date) 28.5 (25-40) % unknown) (unknown) (no (unknown) (unknown) [id number] (units (unk nown) date) unknown) (unknown) (no (unknown) (unknown) MCH (26-34) PG (units (unknown) date) unknown) (unknown) (no (unknown) (unknown) MCH 35.0 H (26-34) (units (unknown) date) PG unknown) (unknown) (no (unknown) (unknown) MCHC (30-36) % (units (unknown) date) unknown) (unknown) (no (unknown) (unknown) MCHC 34.0 (30-36) (units (unknown) date) % unknown) (unknown) (no (unknown) (unknown) MCV (80-100) fL (units (unknown) date) unknown) (unknown) (no (unknown) (unknown) MCV 103.0 H (units (un known) date) (80-100) fL unknown) (unknown) (no (unknown) (unknown) MDM - Psych (units (un known) date) unknown) (unknown) (no (unknown) (unknown) MDM Narrative (units ( unknown) date) unknown) (unknown) (no (unknown) (unknown) Medical History (units (unknown) date) (Updated 03/28/22 @ unknown) 03:02 by Yajaira Rose MD) (unknown) (no (unknown) (unknown) Medical decision (units (unknown) date) making narrative: unknown) (unknown) (no (unknown) (unknown) Medical records (units (unknown) date) reviewed: Records unknown) from [facility] Emergency Department (unknown) (no (unknown) (unknown) Medication (units (unk nown) date) Instructions unknown) Recorded Confirmed (unknown) (no (unknown) (unknown) Medication (units (unk nown) date) Instructions unknown) Recorded (unknown) (no (unknown) (unknown) Mental health (units ( unknown) date) problem unknown) (unknown) (no (unknown) (unknown) Rubina Mullins PA-C (units (unknown) date) [Primary Care unknown) Provider] (unknown) (no (unknown) (unknown) Mode of arrival: (units (unknown) date) Ambulatory unknown) (unknown) (no (unknown) (unknown) [place] # (Auto) (units ( unknown) date) (0-900) /uL unknown) (unknown) (no (unknown) (unknown) [place] # (Auto) 500 (units (unknown) date) (0-900) /uL unknown) (unknown) (no (unknown) (unknown) [place] % (Auto) (units ( unknown) date) (3-14) % unknown) (unknown) (no (unknown) (unknown) [place] % (Auto) 9.7 (units (unknown) date) (3-14) % unknown) (unknown) (no (unknown) (unknown) Mother Diabetes (units (unknown) date) mellitus unknown) (unknown) (no (unknown) (unknown) Narrative: (units (unk nown) date) unknown) (unknown) (no (unknown) (unknown) Neurologic: (units (un known) date) Grossly unknown) neurologically intact with no obvious asymmetries or (unknown) (no (unknown) (unknown) Neut # (Auto) (units ( unknown) date) (1697-3585) /uL unknown) (unknown) (no (unknown) (unknown) Neut # (Auto) 3100 (units (unknown) date) (2654-6713) /uL unknown) (unknown) (no (unknown) (unknown) Neut % (Auto) (units ( unknown) date) (50-75) % unknown) (unknown) (no (unknown) (unknown) Neut % (Auto) 57.6 (units (unknown) date) (50-75) % unknown) (unknown) (no (unknown) (unknown) Nicotine (Nicotine (units (unknown) date) 21 Mg Patch) 21 mg unknown) TOP NOW ONE (unknown) (no (unknown) (unknown) No Action (units (unkn own) date) unknown) (unknown) (no (unknown) (unknown) No Known Drug (units ( unknown) date) Allergies Allergy unknown) Verified 11/24/21 10:21 (unknown) (no (unknown) (unknown) No driving or (units ( unknown) date) operating machinery unknown) today. Please see your counselor at 10:30 (unknown) (no (unknown) (unknown) No evidence of (units (unknown) date) thyroid abnormality unknown) (unknown) (no (unknown) (unknown) No significant (units (unknown) date) medical problems unknown) (unknown) (no (unknown) (unknown) Once she has (units (u nknown) date) sobered slightly we unknown) are able to have a reasonable discussion. She (unknown) (no (unknown) (unknown) Ordered: (units (unkno wn) date) unknown) (unknown) (no (unknown) (unknown) Orders (units (unkno wn) date) unknown) (unknown) (no (unknown) (unknown) Oxygen Delivery (units (unknown) date) Method 03/27/22 unknown) 20:15 (unknown) (no (unknown) (unknown) Oxygen Delivery (units (unknown) date) Method Room Air unknown) Room Air (unknown) (no (unknown) (unknown) PTSD (units (unkno wn) date) (post-traumatic unknown) stress disorder) (unknown) (no (unknown) (unknown) Patient (units (unkno wn) date) Disposition: Home unknown) (unknown) (no (unknown) (unknown) Patient History (units (unknown) date) unknown) (unknown) (no (unknown) (unknown) Patient: (units (unkno wn) date) Cate Holcomb unknown) MR#: (unknown) (no (unknown) (unknown) Pelvic pain (units (un known) date) unknown) (unknown) (no (unknown) (unknown) Plt Count (units (unkn own) date) (150-400) X103/uL unknown) (unknown) (no (unknown) (unknown) Plt Count 254 (units ( unknown) date) (150-400) X103/uL unknown) (unknown) (no (unknown) (unknown) Potassium (units (unkn own) date) (3.4-5.1) mmol/L unknown) (unknown) (no (unknown) (unknown) Potassium 3.9 (units ( unknown) date) (3.4-5.1) mmol/L unknown) (unknown) (no (unknown) (unknown) Prescriptions: (units (unknown) date) unknown) (unknown) (no (unknown) (unknown) Previous Rx's (units ( unknown) date) unknown) (unknown) (no (unknown) (unknown) Psoriasis (units (unkn own) date) unknown) (unknown) (no (unknown) (unknown) Psych: Poor (units (un known) date) overall insight, unknown) significant denial, poor eye contact, fluent (unknown) (no (unknown) (unknown) Pulse Oximetry 96 (units (unknown) date) 03/27/22 20:15 unknown) (unknown) (no (unknown) (unknown) Pulse Oximetry 98 (units (unknown) date) 97 unknown) (unknown) (no (unknown) (unknown) Pulse Rate 64 (units ( unknown) date) 03/27/22 20:15 unknown) (unknown) (no (unknown) (unknown) Pulse Rate 72 76 (units (unknown) date) unknown) (unknown) (no (unknown) (unknown) RBC (4.0-5.2) (units ( unknown) date) X106/uL unknown) (unknown) (no (unknown) (unknown) RBC 3.80 L (units (unk nown) date) (4.0-5.2) X106/uL unknown) (unknown) (no (unknown) (unknown) RDW (11.6-14.8) % (units (unknown) date) unknown) (unknown) (no (unknown) (unknown) RDW 14.0 (units (unkno wn) date) (11.6-14.8) % unknown) (unknown) (no (unknown) (unknown) Re-evaluations: (units (unknown) date) Patient is unknown) clinically and medically sober with no signs of (unknown) (no (unknown) (unknown) Referrals: (units (unk nown) date) unknown) (unknown) (no (unknown) (unknown) Related Data (units (u nknown) date) unknown) (unknown) (no (unknown) (unknown) Remainder of (units (u nknown) date) complete review of unknown) systems is otherwise unremarkable except for (unknown) (no (unknown) (unknown) Repeat alcohol (units (unknown) date) level at 2:30 a.m. unknown) is less than 0. (unknown) (no (unknown) (unknown) Respiratory Rate (units (unknown) date) 18 03/27/22 20:15 unknown) (unknown) (no (unknown) (unknown) Respiratory Rate (units (unknown) date) 18 20 unknown) (unknown) (no (unknown) (unknown) Respiratory: Lungs (units (unknown) date) are clear to unknown) auscultation, no wheezing no rales no rhonchi. (unknown) (no (unknown) (unknown) Review of Systems (units (unknown) date) unknown) (unknown) (no (unknown) (unknown) Salicylates < 1.0 (units (unknown) date) (<20) mg/dL unknown) (unknown) (no (unknown) (unknown) Salicylates (<20) (units (unknown) date) mg/dL unknown) (unknown) (no (unknown) (unknown) Severe (units (unkno wn) date) dysmenorrhea unknown) (unknown) (no (unknown) (unknown) She simply states (units (unknown) date) that she wants to unknown) harm herself but does not have a discrete (unknown) (no (unknown) (unknown) She states she (units (unknown) date) ?lost yesterday unknown) with all of the pressure with her family ? (unknown) (no (unknown) (unknown) She was discharged (units (unknown) date) from would be unknown) emergency department around noon and was (unknown) (no (unknown) (unknown) Signed By: (units (unk nown) date) unknown) (unknown) (no (unknown) (unknown) Skin: Warm and (units (unknown) date) dry, no rashes unknown) (unknown) (no (unknown) (unknown) Smoking Status: (units (unknown) date) Former smoker unknown) (unknown) (no (unknown) (unknown) Social History (units (unknown) date) (Reviewed 02/18/20 unknown) @ 12:52 by EDDIE Castillo) (unknown) (no (unknown) (unknown) Social (units (unkno wn) date) determinants of unknown) health that may influence the patients condition: Recent (unknown) (no (unknown) (unknown) Sodium (137-145) (units (unknown) date) mmol/L unknown) (unknown) (no (unknown) (unknown) Sodium 140 (units (unk nown) date) (137-145) mmol/L unknown) (unknown) (no (unknown) (unknown) Source: patient (units (unknown) date) unknown) (unknown) (no (unknown) (unknown) Stand Alone Forms: (units (unknown) date) Patient Portal/API unknown) (unknown) (no (unknown) (unknown) Stated Complaint: (units (unknown) date) suicidal unknown) (unknown) (no (unknown) (unknown) Status post (units (un known) date) laparoscopic unknown) supracervical hysterectomy (10/27/21) (unknown) (no (unknown) (unknown) Stop: 03/28/22 (units (unknown) date) 03:41 unknown) (unknown) (no (unknown) (unknown) Stop: 03/28/22 (units (unknown) date) 09:16 unknown) (unknown) (no (unknown) (unknown) Substance Use (units ( unknown) date) Type: does not use unknown) (unknown) (no (unknown) (unknown) Suicidal (units (unkno wn) date) Ideation-Adult unknown) (unknown) (no (unknown) (unknown) Surgical History (units (unknown) date) (Updated 11/25/21 @ unknown) 22:07 by Alysia Hernandez MD) (unknown) (no (unknown) (unknown) TAKE 1 TABLET BY (units (unknown) date) MOUTH EVERY EVENING unknown) (unknown) (no (unknown) (unknown) TSH (0.47-4.68) (units (unknown) date) uIU/mL unknown) (unknown) (no (unknown) (unknown) TSH 1.17 (units (unkno wn) date) (0.47-4.68) uIU/mL unknown) (unknown) (no (unknown) (unknown) Temperature 97.9 F (units (unknown) date) 03/27/22 20:15 unknown) (unknown) (no (unknown) (unknown) Temperature 98.2 F (units (unknown) date) unknown) (unknown) (no (unknown) (unknown) Time Seen by (units (u nknown) date) Provider: 03/27/22 unknown) 22:28 (unknown) (no (unknown) (unknown) Total Bilirubin (units (unknown) date) (0.2-1.3) mg/dL unknown) (unknown) (no (unknown) (unknown) Total Bilirubin (units (unknown) date) 0.4 (0.2-1.3) mg/dL unknown) (unknown) (no (unknown) (unknown) Total Protein (units ( unknown) date) (6.3-8.2) g/dL unknown) (unknown) (no (unknown) (unknown) Total Protein 7.3 (units (unknown) date) (6.3-8.2) g/dL unknown) (unknown) (no (unknown) (unknown) Treatments: (units (un known) date) Sobering unknown) (unknown) (no (unknown) (unknown) Treatments: (units (un known) date) Sobering, Ativan unknown) for anxiety. Nicotine patch. (unknown) (no (unknown) (unknown) U Benzodiazepines (units (unknown) date) Scrn (Negative) unknown) (unknown) (no (unknown) (unknown) U Benzodiazepines (units (unknown) date) Scrn Positive H unknown) (Negative) (unknown) (no (unknown) (unknown) U Marijuana (THC) (units (unknown) date) Screen (Negative) unknown) (unknown) (no (unknown) (unknown) U Marijuana (THC) (units (unknown) date) Screen Negative unknown) (Negative) (unknown) (no (unknown) (unknown) U Methamphetamines (units (unknown) date) Scrn (Negative) unknown) (unknown) (no (unknown) (unknown) U Methamphetamines (units (unknown) date) Scrn Negative unknown) (Negative) (unknown) (no (unknown) (unknown) U Opiates 300ng/mL (units (unknown) date) cut (Negative) unknown) (unknown) (no (unknown) (unknown) U Opiates 300ng/mL (units (unknown) date) cut Negative unknown) (Negative) (unknown) (no (unknown) (unknown) U Tricyclic (units (un known) date) Antidepress unknown) (Negative) (unknown) (no (unknown) (unknown) U Tricyclic (units (un known) date) Antidepress unknown) Negative (Negative) (unknown) (no (unknown) (unknown) Ur Amphetamines (units (unknown) date) Screen (Negative) unknown) (unknown) (no (unknown) (unknown) Ur Amphetamines (units (unknown) date) Screen Negative unknown) (Negative) (unknown) (no (unknown) (unknown) Ur Barbiturates (units (unknown) date) Screen (Negative) unknown) (unknown) (no (unknown) (unknown) Ur Barbiturates (units (unknown) date) Screen Negative unknown) (Negative) (unknown) (no (unknown) (unknown) Ur Culture (units (unk nown) date) Indicated? Cult not unknown) indicated (unknown) (no (unknown) (unknown) Ur Culture (units (unk nown) date) Indicated? unknown) (unknown) (no (unknown) (unknown) Ur Leukocyte (units (u nknown) date) Esterase (NEGATIVE) unknown) (unknown) (no (unknown) (unknown) Ur Leukocyte (units (u nknown) date) Esterase Negative unknown) (NEGATIVE) (unknown) (no (unknown) (unknown) Ur MDMA Scrn (units (u nknown) date) (Ecstasy) unknown) (Negative) (unknown) (no (unknown) (unknown) Ur MDMA Scrn (units (u nknown) date) (Ecstasy) Negative unknown) (Negative) (unknown) (no (unknown) (unknown) Ur Oxycodone (units (u nknown) date) Screen (Negative) unknown) (unknown) (no (unknown) (unknown) Ur Oxycodone (units (u nknown) date) Screen Negative unknown) (Negative) (unknown) (no (unknown) (unknown) Ur Phencyclidine (units (unknown) date) Scrn (Negative) unknown) (unknown) (no (unknown) (unknown) Ur Phencyclidine (units (unknown) date) Scrn Negative unknown) (Negative) (unknown) (no (unknown) (unknown) Ur Specific (units (un known) date) [place] <=1.005 unknown) (1.000-1.035) (unknown) (no (unknown) (unknown) Ur Specific (units (un known) date) [place] unknown) (1.000-1.035) (unknown) (no (unknown) (unknown) Ur Squamous Epith (units (unknown) date) Cells (0-5/HPF) unknown) (unknown) (no (unknown) (unknown) Ur Squamous Epith (units (unknown) date) Cells None seen unknown) (0-5/HPF) (unknown) (no (unknown) (unknown) Urine Appearance (units (unknown) date) Clear unknown) (unknown) (no (unknown) (unknown) Urine Appearance (units (unknown) date) unknown) (unknown) (no (unknown) (unknown) Urine Bacteria (units (unknown) date) (None) unknown) (unknown) (no (unknown) (unknown) Urine Bacteria (units (unknown) date) Occasional (0-1) unknown) (None) (unknown) (no (unknown) (unknown) Urine Bilirubin (units (unknown) date) (NEGATIVE) unknown) (unknown) (no (unknown) (unknown) Urine Bilirubin (units (unknown) date) Negative (NEGATIVE) unknown) (unknown) (no (unknown) (unknown) Urine Cocaine (units ( unknown) date) Screen (Negative) unknown) (unknown) (no (unknown) (unknown) Urine Cocaine (units ( unknown) date) Screen Negative unknown) (Negative) (unknown) (no (unknown) (unknown) Urine Color Lt. (units (unknown) date) yellow unknown) (unknown) (no (unknown) (unknown) Urine Color (units (un known) date) unknown) (unknown) (no (unknown) (unknown) Urine Glucose (UA) (units (unknown) date) (Negative) g/dL unknown) (unknown) (no (unknown) (unknown) Urine Glucose (UA) (units (unknown) date) Negative (Negative) unknown) g/dL (unknown) (no (unknown) (unknown) Urine Ketones (units ( unknown) date) (NEGATIVE) unknown) (unknown) (no (unknown) (unknown) Urine Ketones (units ( unknown) date) Negative (NEGATIVE) unknown) (unknown) (no (unknown) (unknown) Urine Methadone (units (unknown) date) Screen (Negative) unknown) (unknown) (no (unknown) (unknown) Urine Methadone (units (unknown) date) Screen Negative unknown) (Negative) (unknown) (no (unknown) (unknown) Urine Nitrate (units ( unknown) date) (Negative) unknown) (unknown) (no (unknown) (unknown) Urine Nitrate (units ( unknown) date) Negative (Negative) unknown) (unknown) (no (unknown) (unknown) Urine Occult Blood (units (unknown) date) (Negative) unknown) (unknown) (no (unknown) (unknown) Urine Occult Blood (units (unknown) date) Negative (Negative) unknown) (unknown) (no (unknown) (unknown) Urine Protein (units ( unknown) date) (Negative) unknown) (unknown) (no (unknown) (unknown) Urine Protein (units ( unknown) date) Negative (Negative) unknown) (unknown) (no (unknown) (unknown) Urine RBC (units (unkn own) date) (0-5/HPF) unknown) (unknown) (no (unknown) (unknown) Urine RBC None (units (unknown) date) seen (0-5/HPF) unknown) (unknown) (no (unknown) (unknown) Urine Urobilinogen (units (unknown) date) (0.2) E.U./dL unknown) (unknown) (no (unknown) (unknown) Urine Urobilinogen (units (unknown) date) 0.2 (0.2) E.U./dL unknown) (unknown) (no (unknown) (unknown) Urine WBC (units (unkn own) date) (0-5/HPF) unknown) (unknown) (no (unknown) (unknown) Urine WBC 0-1/hpf (units (unknown) date) (0-5/HPF) unknown) (unknown) (no (unknown) (unknown) Urine pH (4.5-8.0) (units (unknown) date) unknown) (unknown) (no (unknown) (unknown) Urine pH 6.0 (units (u nknown) date) (4.5-8.0) unknown) (unknown) (no (unknown) (unknown) Vital Signs - 8 hr (units (unknown) date) unknown) (unknown) (no (unknown) (unknown) Vital Signs (units (un known) date) unknown) (unknown) (no (unknown) (unknown) Vital signs: (units (u nknown) date) unknown) (unknown) (no (unknown) (unknown) WBC (4.5-11.0) (units (unknown) date) X103/uL unknown) (unknown) (no (unknown) (unknown) WBC 5.3 (4.5-11.0) (units (unknown) date) X103/uL unknown) (unknown) (no (unknown) (unknown) [Embedded Image (units (unknown) date) Not Available] unknown) (unknown) (no (unknown) (unknown) a psychiatrist or (units (unknown) date) prescribing unknown) therapist, this is the person who prescribes her (unknown) (no (unknown) (unknown) a.m. this morning (units (unknown) date) as scheduled as unknown) well as tomorrow. Return if worse if any (unknown) (no (unknown) (unknown) a.m. this morning (units (unknown) date) with counselor on unknown) the [employer] base. She has another appointment (unknown) (no (unknown) (unknown) able to contact (units (unknown) date) for ride home and unknown) see if she can arrange for somebody to stay (unknown) (no (unknown) (unknown) abnormalities. (units (unknown) date) Near clear signs of unknown) alcohol withdrawal (unknown) (no (unknown) (unknown) additional (units (unk nown) date) outpatient follow unknown) up (unknown) (no (unknown) (unknown) afternoon with a (units (unknown) date) call to confirm the unknown) time for that appointment. I am concerned (unknown) (no (unknown) (unknown) afternoon. Patient (units (unknown) date) has been resting unknown) comfortably here, has been cooperative. (unknown) (no (unknown) (unknown) again. (units (unkno wn) date) unknown) (unknown) (no (unknown) (unknown) alcohol intake (units (unknown) date) frequency: 3 or unknown) more drinks per day (unknown) (no (unknown) (unknown) alcohol intake: (units (unknown) date) current unknown) (unknown) (no (unknown) (unknown) alcohol use, (units (u nknown) date) unknown) (unknown) (no (unknown) (unknown) alcohol. She (units (u nknown) date) states she has a unknown) lot going on for the past 10 years. She states (unknown) (no (unknown) (unknown) all of her flu (units (unknown) date) vaccine and acutely unknown) intoxicated. After discussion with poison (unknown) (no (unknown) (unknown) autistic son here (units (unknown) date) living with her and unknown) a 3rd son as well. Her is (unknown) (no (unknown) (unknown) bed. She believes (units (unknown) date) she has an unknown) appointment with her therapist (unsure if this is (unknown) (no (unknown) (unknown) been reviewed with (units (unknown) date) patient as well as unknown) indications for ED re-evaluation and (unknown) (no (unknown) (unknown) being discharged (units (unknown) date) from the emergency unknown) department around noon she moved into her (unknown) (no (unknown) (unknown) brought in by a (units (unknown) date) friend to [facility] around 8:15 p.m. with (unknown) (no (unknown) (unknown) chronic alcohol (units (unknown) date) use unknown) (unknown) (no (unknown) (unknown) cleared and then (units (unknown) date) seen by social unknown) workers the morning of 03/27. At that time she (unknown) (no (unknown) (unknown) complaints of (units ( unknown) date) acute alcohol unknown) intoxication and suicidal ideation without discrete (unknown) (no (unknown) (unknown) condominium and (units (unknown) date) moving out of the unknown) home shared with her current . She is (unknown) (no (unknown) (unknown) control she was (units (unknown) date) observed in the unknown) emergency department for 8 hours medically (unknown) (no (unknown) (unknown) her, he (units (unknown) date) revealed to her unknown) that he is yu. 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 (units (unknown) date) However drank unknown) alcohol again with suicide ideations yesterday (unknown) (no (unknown) (unknown) enough to end up (units (unknown) date) in the emergency unknown) department unless than 8 hours is unclear and (unknown) (no (unknown) (unknown) fluconazole 150 mg (units (unknown) date) tablet 150 mg PO unknown) DAILY #1 tab 11/03/21 (unknown) (no (unknown) (unknown) fluconazole (units (un known) date) [Diflucan] 150 mg unknown) tablet (unknown) (no (unknown) (unknown) fluvoxamine 50 mg (units (unknown) date) tablet 50 mg DAILY unknown) 10/24/21 11/24/21 (unknown) (no (unknown) (unknown) fluvoxamine 50 mg (units (unknown) date) tablet unknown) (unknown) (no (unknown) (unknown) fluvoxamine) via (units (unknown) date) telemedicine at unknown) 1:00 p.m. on the . She states that she (unknown) (no (unknown) (unknown) from that (units (unkn own) date) facility. Patient unknown) was not detainable. Patient went home, had a (unknown) (no (unknown) (unknown) had no fever, (units ( unknown) date) cough, chills, unknown) abdominal pain. It is not complaining of headache. (unknown) (no (unknown) (unknown) her son is in a (units (unknown) date) [facility] in unknown) [place] and will not talk to her. She has an (unknown) (no (unknown) (unknown) household members: (units (unknown) date) spouse and children unknown) (unknown) (no (unknown) (unknown) hydroxyzine HCl 25 (units (unknown) date) mg tablet 25 mg PO unknown) BEDTIME PRN sleep #7 tabs 10/24/21 (unknown) (no (unknown) (unknown) hydroxyzine HCl 25 (units (unknown) date) mg tablet unknown) (unknown) (no (unknown) (unknown) including her 8 (units (unknown) date) hour observation unknown) stay and social Work consult are reviewed (unknown) (no (unknown) (unknown) insight overall (units (unknown) date) unknown) (unknown) (no (unknown) (unknown) instability (units (un known) date) unknown) (unknown) (no (unknown) (unknown) intoxicated with (units (unknown) date) alcohol and unknown) suicidal. She was seen at [facility] on 03/26 (unknown) (no (unknown) (unknown) is able to speak (units (unknown) date) in complete unknown) sentences (unknown) (no (unknown) (unknown) is not clear to me (units (unknown) date) that she is safe to unknown) be discharged home with current social (unknown) (no (unknown) (unknown) issues surrounding (units (unknown) date) her ex-, unknown) oldest children and current with whom (unknown) (no (unknown) (unknown) losartan 50 mg (units (unknown) date) tablet 50 mg PO unknown) DAILY 10/17/21 11/24/21 (unknown) (no (unknown) (unknown) losartan 50 mg (units (unknown) date) tablet unknown) (unknown) (no (unknown) (unknown) needs external (units (unknown) date) validation. unknown) (unknown) (no (unknown) (unknown) negative. If (units (u nknown) date) patient is unknown) nonsuicidal, likely be able to discharge home without (unknown) (no (unknown) (unknown) new condominium. (units (unknown) date) How she managed to unknown) do all of that and become intoxicated (unknown) (no (unknown) (unknown) noon. She already (units (unknown) date) has appointment at unknown) 10:30 a.m. this morning. She has friends (unknown) (no (unknown) (unknown) not drink alcohol. (units (unknown) date) unknown) (unknown) (no (unknown) (unknown) not sure if there (units (unknown) date) simply unknown) or truly heading for divorce. There (unknown) (no (unknown) (unknown) of the night (units (u nknown) date) before had her unknown) psychiatry televideo appointment moved to March (unknown) (no (unknown) (unknown) others. She does (units (unknown) date) not wish to speak unknown) with our social work that will be here at (unknown) (no (unknown) (unknown) [facility] (units (unknown) date) yesterday for unknown) alcohol Ativan Prozac overdose. Was discharge (unknown) (no (unknown) (unknown) own bed?. Today, (units (unknown) date) she reports no unknown) pills or other medications, no cutting. She is (unknown) (no (unknown) (unknown) plan and no (units (un known) date) reports of taking unknown) any additional pills. (unknown) (no (unknown) (unknown) plan. When (units (unk nown) date) discussing options unknown) for her later in the evening after she would (unknown) (no (unknown) (unknown) prescription (units (u nknown) date) antidepressants and unknown) discharge from the hospital less than 8 hours (unknown) (no (unknown) (unknown) prior to (units (unkno wn) date) presentation at unknown) [facility] ([facility]) (no (unknown) (unknown) questions or (units (u nknown) date) concerns. Return unknown) immediately any thoughts hurting yourself. Do (unknown) (no (unknown) (unknown) re-evaluated (units (u nknown) date) patient. She is unknown) denying any thoughts of hurting herself or others. (unknown) (no (unknown) (unknown) separation from (units (unknown) date) her , unknown) question of alcohol use disorder, overall social (unknown) (no (unknown) (unknown) she ended up back (units (unknown) date) in the emergency unknown) room in 8 hours with similar suicidal (unknown) (no (unknown) (unknown) she is . (units (unknown) date) When she wakes up unknown) again, we will see what friends she is (unknown) (no (unknown) (unknown) significant (units (un known) date) withdrawal. She unknown) still seems moderately despondent but denies any (unknown) (no (unknown) (unknown) situational (units (un known) date) disturbance, unknown) suicidal ideation, suicide attempt (unknown) (no (unknown) (unknown) sobered she states (units (unknown) date) she is tired and unknown) simply wants to go home and sleep in her own (unknown) (no (unknown) (unknown) social work (units (un known) date) evaluation from our unknown) services due to patient having appointment at (unknown) (no (unknown) (unknown) social work (units (un known) date) evaluation. Patient unknown) is medically cleared. Alcohol levels are (unknown) (no (unknown) (unknown) speech, no (units (unk nown) date) auditory or visual unknown) hallucinations (unknown) (no (unknown) (unknown) states that she is (units (unknown) date) been struggling unknown) with multiple acute situational stressors. (unknown) (no (unknown) (unknown) suicidal or (units (un known) date) homicidal ideation. unknown) Plan is to go home, take shower, had something (unknown) (no (unknown) (unknown) that care for her (units (unknown) date) and will drive her. unknown) (unknown) (no (unknown) (unknown) that included in (units (unknown) date) the HPI. unknown) (unknown) (no (unknown) (unknown) that she had this (units (unknown) date) exact same unknown) presentation for the social services designee at would be and (unknown) (no (unknown) (unknown) thoughts she was (units (unknown) date) unable to give a unknown) reasonable answer and simply states she wants (unknown) (no (unknown) (unknown) to eat and keep (units (unknown) date) her appointment unknown) with her therapist at 1:00 p.m. later this (unknown) (no (unknown) (unknown) to go home and (units (unknown) date) ?take a hot shower, unknown) eat and drink something and go to bed in her (unknown) (no (unknown) (unknown) tomorrow as well. (units (unknown) date) She denies denies unknown) denies any thoughts of hurting herself or (unknown) (no (unknown) (unknown) updating her on (units (unknown) date) any medical unknown) abnormalities. She is currently moving into her own (unknown) (no (unknown) (unknown) wants to be home (units (unknown) date) to have dinner with unknown) her son and her . When asked how (unknown) (no (unknown) (unknown) was felt to be (units (unknown) date) clinically sober, unknown) feeling better did not have much recollection (unknown) (no (unknown) (unknown) when she returned (units (unknown) date) from the hospital unknown) yesterday afternoon. She only drank (unknown) (no (unknown) (unknown) with her for the (units (unknown) date) day to make sure unknown) that she is safe and does not began drinking (unknown) (no (unknown) (unknown) with (units (unkno wn) date) therapist/counselin unknown) g this afternoon (unknown) (no (unknown) (unknown) within 8 hours was (units (unknown) date) again drinking and unknown) considering killing herself. 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 At this (units (unknown) date) point I do not unknown) believe that she is gravely disabled however it Social History date description facility 2022-03-28 00:00 Ex-smoker ([facility] Vital Signs date measurement value units 2022-03-27 00:00 weight_metric 61.23 kg 2022-03-27 00:00 weight_standard 134.99 lb 2022-03-28 00:00 BP_diastolic 72 mmHg 2022-03-28 00:00 BP_systolic 118 mmHg 2022-03-28 00:00 heart_rate 76 /min 2022-03-28 00:00 o2_saturation 97 % 2022-03-28 00:00 respiration_rate 20 /min 2022-03-28 00:00 temperature_metric 36.78 C 2022-03-28 00:00 temperature_standard 98.2 F
[2022-04-06] MEDS ORDERED: KETOROLAC 30 MG/ML VIAL IM STA (01:08)
--- NOTE | 2022-04-06 01:42 | ED Physician Documentation ---
History of Present Illness - Stated complaint Stated Complaint: LT BACK RIB PX - Chief complaint Chief Complaint: Trauma Ch/Bk - History obtained from History obtained from: Patient - Additonal information Additional information: 41-year-old woman Presents with viral URI symptoms for the past day including nausea, body aches, fatigue fever and chills. Also with some congestion and cough productive of clear to yellow sputum. denies chest pain, soa, hemoptysis, ear pain. covid negative at home.also with chronic rash to upper lip. Review of Systems Constitutional: reports: Fever, Chills, Myalgias, Fatigue Nose: reports: Congestion Cardiac: denies: Chest pain / pressure Respiratory: reports: Cough. 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 : None HEENT: None Psych: Depression Musculoskeletal: None Derm: None - Past Surgical History Past Surgical History: No - Present Medications Home Medications: Ambulatory Orders Medication Instructions Recorded Confirmed Fluvoxamine Maleate 50 mg PO DAILY 03/27/22 04/06/22 LORazepam [Ativan] 1 mg PO HS 03/27/22 04/06/22 diazePAM [Valium] 5 mg PO Q6HR PRN 03/27/22 04/06/22 Buspirone HCl 7.5 mg PO DAILY 04/06/22 04/06/22 Methylphenidate HCl 20 mg PO BID 04/06/22 04/06/22 Triamcinolone 0.1% Oint 1 applic TOP BID 7 Days #80 gm 04/06/22 atenoloL [Tenormin] 25 mg PO DAILY 04/06/22 04/06/22 - Allergies Allergies/Adverse Reactions: Allergies Allergy/AdvReac Type Severity Reaction Status Date / Time No Known Drug Allergies Allergy Verified 03/26/22 22:24 - Social History Does the pt smoke?: No Smoking Status: Current some day smoker Does the pt drink ETOH?: Yes Does the pt have substance abuse?: Yes - Immunizations Immunizations are current?: Yes - POLST Patient has POLST: No PD ED PE NORMAL - Vitals Vital signs reviewed: Yes - General General: Alert and oriented X 3, No acute distress, Well developed/nourished - HEENT HEENT: Atraumatic, PERRL, EOMI, Moist mucous membranes, Pharynx benign - Neck Neck: Supple, no meningeal sign Results - Vitals Vitals: Vital Signs - 24 hr 04/06/22 00:19 Temperature 36.8 C Heart Rate 58 L Respiratory 20 Rate Blood Pressure 100/45 L O2 Saturation 97 Oxygen O2 Source Room air PD Medical Decision Making - ED course ED course: 41-year-old woman presents with viral URI symptoms. Symptomatic care discussed. Return precautions given. Also prescribed steroid ointment for rash to upper lip. Departure - Departure Disposition: 01 Home, Self Care Clinical Impression: Dermatitis, URI (upper respiratory infection) Condition: Good Instructions: Rash Skin Self Care Prescriptions: Triamcinolone 0.1% Oint 1 applic TOP BID 7 Days #80 gm Comments: You are seen in the emergency department for evaluation of cold symptoms and rash in your upper lip. A prescription was sent electronically to [facility] in [place] for ointment. [place] Return to the emergency department for new or worsening symptoms or other concerns Forms: Activity restrictions
--- NOTE | 2022-04-06 02:17 | ED Physician Documentation ---
History of Present Illness - Stated complaint Stated Complaint: LT BACK RIB PX - Chief complaint Chief Complaint: Trauma Ch/Bk - History obtained from History obtained from: Patient - Additonal information Additional information: 41-year-old woman with history of depression presents status post fall down stairs carrying a dresser, hitting her left mid to lower back about 24 hours ago. She had sudden onset pain that is constant since that time and is now 10 out of 10 in severity, worse with movement and twisting. Associated with clicking. Denies shortness of breath. 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 : None HEENT: None Psych: Depression Musculoskeletal: None Derm: None - Past Surgical History Past Surgical History: No - Present Medications Home Medications: Ambulatory Orders Medication Instructions Recorded Confirmed Fluvoxamine Maleate 50 mg PO DAILY 03/27/22 04/06/22 LORazepam [Ativan] 1 mg PO HS 03/27/22 04/06/22 diazePAM [Valium] 5 mg PO Q6HR PRN 03/27/22 04/06/22 Buspirone HCl 7.5 mg PO DAILY 04/06/22 04/06/22 Methylphenidate HCl 20 mg PO BID 04/06/22 04/06/22 atenoloL [Tenormin] 25 mg PO DAILY 04/06/22 04/06/22 - Allergies Allergies/Adverse Reactions: Allergies Allergy/AdvReac Type Severity Reaction Status Date / Time No Known Drug Allergies Allergy Verified 03/26/22 22:24 - Social History Does the pt smoke?: No Smoking Status: Current some day smoker Does the pt drink ETOH?: Yes Does the pt have substance abuse?: Yes - Immunizations Immunizations are current?: Yes - POLST Patient has POLST: No PD ED PE NORMAL - Vitals Vital signs reviewed: Yes - General General: Alert and oriented X 3, Other (crying out in pain on initial history. tearful, anxious appearing but calmed after lung exam was performed) - HEENT HEENT: Atraumatic, PERRL, EOMI - Neck Neck: No bony TTP - Cardiac Cardiac: RRR - Respiratory Respiratory: No respiratory distress, Clear bilaterally - Back Back: No CVA TTP, No spinal TTP, Other (L posterior ribcage ttp with palpable crepitus) - Derm Derm: Normal color, Warm and dry Results - Vitals Vitals: Vital Signs - 24 hr 04/06/22 00:19 Temperature 36.8 C Heart Rate 58 L Respiratory 20 Rate Blood Pressure 100/45 L O2 Saturation 97 Oxygen O2 Source Room air PD Medical Decision Making - ED course ED course: 41-year-old woman presents with left posterior rib cage and back pain status post fall. Patient was extremely anxious appearing during the initial history, stated she was thinking of leaving but was agreeable to plan to check for fractures, pulmonary contusion, or other traumatic pathology by CXR. Patient then ended up eloping prior to x-ray. Departure - Departure Disposition: ED Elope Clinical Impression: Back pain Condition: Stable
== END 2022-04-06 02:21 | disposition left against medical advice (07) ==
LOC: ED 00:08
DX: J06.9 Acute upper respiratory infection, unspecified (principal); L30.9 Dermatitis, unspecified; F17.200 Nicotine dependence, unspecified, uncomplicated; M54.50 Low back pain, unspecified
CPT/HCPCS: 96374; 99283

== ENCOUNTER 2022-10-31 10:59 | Emergency (ER) | payer OTHER ==
[2022-10-31 11:11] VITALS: BP 109/58; O2SAT 97
[2022-10-31] MEDS ORDERED: HYDROmorphone 1 MG/ML CARPUJECT IVP STA (11:19)
--- NOTE | 2022-10-31 11:23 | ED Physician Documentation ---
History of Present Illness - Stated complaint Stated Complaint: BACK INJ,PX - Chief complaint Chief Complaint: Trauma Ch/Bk - Additonal information Additional information: 42-year-old female presents emergency department for evaluation of acute low back pain and tingling in both her feet. She was descending the stairs to get her son and was in a washburn. She slipped falling backwards landing on her tailbone and then slid down approximately 11 stairs. She got up but then fell again. She was ambulatory on scene but shortly thereafter began having a lot of pain in the low back and tailbone region. Now reporting some numbness in both f eet especially on the medial side. No saddle anesthesia. No history of similar. Does have a history of anxiety and PTSD and takes medications for that. 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 : None HEENT: None Psych: Depression Musculoskeletal: None Derm: None - Past Surgical History Past Surgical History: No - Present Medications Home Medications: Ambulatory Orders Medication Instructions Recorded Confirmed Fluvoxamine Maleate 50 mg PO DAILY 03/27/22 04/06/22 LORazepam [Ativan] 1 mg PO HS 03/27/22 04/06/22 diazePAM [Valium] 5 mg PO Q6HR PRN 03/27/22 04/06/22 Buspirone HCl 7.5 mg PO DAILY 04/06/22 04/06/22 Methylphenidate HCl 20 mg PO BID 04/06/22 04/06/22 atenoloL [Tenormin] 25 mg PO DAILY 04/06/22 04/06/22 oxyCODONE [Roxicodone] 5 mg PO TID PRN #15 tablet 10/31/22 - Allergies Allergies/Adverse Reactions: Allergies Allergy/AdvReac Type Severity Reaction Status Date / Time No Known Drug Allergies Allergy Verified 10/31/22 11:03 - Social History Does the pt smoke?: No Smoking Status: Current some day smoker Does the pt drink ETOH?: Yes Does the pt have substance abuse?: Yes - Immunizations Immunizations are current?: Yes - POLST Patient has POLST: No PD ED PE NORMAL - General General: Alert and oriented X 3. No: No acute distress (Crying, screaming. Resistant to any movement and touch.) - HEENT HEENT: PERRL - Cardiac Cardiac: RRR, No murmur - Respiratory Respiratory: Clear bilaterally - Abdomen Abdomen: Normal bowel sounds, Soft, Non tender, Non distended - Back Back: Other (Patient is able to elevate both legs at the hips though reports tailbone pain. She does have some vague tingling medial lower feet sensation is preserved otherwise. Motor strength is 4 5 bilaterally). No: No spinal TTP (No midline tenderness elicited of the cervical or thoracic spine. 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 Throughout the lumbar dextroscoliosis without vertebral anomaly) lumbar CT Relevant Findings:: Final report received (No evidence of fracture or traumatic malalignment. Thresa lumbar dextroscoliosis without vertebral anomaly. Ovoid sclerotic density in the right iliac bone probably reflects a bone island or enostosis) PD Medical Decision Making - ED course Complexity details: reviewed results, re-evaluated patient, d/w patient, d/w family ED course: 42-year-old female presents emergency department for evaluation of acute lumbar and lower sacral back pain after fall onto her tailbone and then descending 12 stairs. Reportedly got up and then fell again. She was ambulatory on scene but after a few minutes began to have significant pain and tightness in her low back. She did report some numbness in the medial aspect of both feet however her motor strength was preserved. There was no saddle anesthesia or loss of bowel or bladder incontinence. 1215: Following the initial dose of Dilaudid IV the patient was able to get up and ambulate to the restroom using a walker but required minimal assistance. Nurse report ported no shuffling gait and was able to sit on the toilet easily. 1330: CT of the thoracic and lumbar spine showed no acute fractures. I reevaluated the patient at the bedside she is feeling markedly improved now able to sit up and roll over in bed. She has been able to ambulate easily with a walker. I discussed with her the likelihood that this represented low back and sacral contusion over fracture. Because of an NSAID allergy she is advised Tylenol every 4-6 hours with as needed doses of oxycodone. She will follow closely with PCP. Clinically patient has no red flags on exam i.e. saddle anesthesia, loss of bowel or bladder function. She is discharged home in stable condition with usual emergent return precautions discussed. Departure - Departure Disposition: 01 Home, Self Care Clinical Impression: Sacral back pain Fall down stairs Qualifiers: Encounter type: initial encounter Qualified Code(s): W10.8XXA - Fall (on) (from) other stairs and steps, initial encounter Condition: Stable Record reviewed to determine appropriate education?: Yes Prescriptions: oxyCODONE [Roxicodone] 5 mg PO TID PRN #15 tablet PRN Reason: Pain Comments: The CT of your thoracic and lumbar spines that showed no evidence of fracture. I suspect that you have a fair amount of contusion of the lower back and sacral area that is causing your pain. Over the next several days I would recommend that you take 500 mg of Tylenol every 4-6 hours. I recommend that you get up and walk frequently with a walker to make sure that you are not developing any spasms or excessive tightening of your back. For more severe pain you can use the oxycodone. Use this cautiously it is addictive and will cause constipation. You are unsafe to drive if taking it. Please follow closely with your primary care doctor. Return immediately to the ER if you develop any numbness in your genital area, lose control of your bowel or bladder function Forms: PCP List
--- NOTE | 2022-10-31 13:12 | CT Report ---
PROCEDURE: THORACIC SPINE WO INDICATIONS: fall down stairs TECHNIQUE: Noncontrast 3 mm thick sections acquired through the region of interest in the thoracic spine. Sagit kendal and coronal reformats were then constructed. For radiation dose reduction, the following was used : automated exposure control, adjustment of mA and/or kV according to patient size. COMPARISON: None. FINDINGS: Image quality: Excellent. Bones: There is normal overall bony alignment. No acute vertebral body compression fractures. No s uspicious sclerotic or lytic bony lesions. Central spinal canal is of normal overall caliber. Conve x right thoracolumbar scoliosis present. Soft tissues: No paravertebral masses or hematomas. Visualized posteromedial lungs appear clear. IMPRESSION: No evidence of fracture or traumatic malalignment. Thoracolumbar dextroscoliosis without vertebral anomaly Reviewed by: Austin Irizarry MD on 10/31/2022 12:11 PM RISHI Approved by: Austin Irizarry MD on 10/31/2022 12:11 PM AKDT Station ID: [id number]
--- NOTE | 2022-10-31 13:16 | CT Report ---
PROCEDURE: CT of the lumbar spine without contrast INDICATIONS: tailbone pain; fall down stairs TECHNIQUE: Noncontrast 3 mm thick sections acquired from the T12 level to the sacrum. Sagittal and coronal refo rmats were constructed. For radiation dose reduction, the following was used: automated exposure co ntrol, adjustment of mA and/or kV according to patient size. COMPARISON: None. FINDINGS: Image quality: Excellent. Bones: There is normal bony alignment. No acute vertebral body compression fractures. No suspiciou s lytic or blastic bony lesions. Central spinal caliber is of normal overall caliber. No pars defec ts. Convex right thoracolumbar scoliosis present. No vertebral anomalies. Ovoid osteoblastic lesion the right iliac bone measures 1.2 cm in long axis At the disc levels, disc spaces are maintained. No osseous central canal stenosis. Soft tissues: No retroperitoneal masses or hematomas. Visualized aorta is normal in caliber. IMPRESSION: No evidence of fracture or traumatic malalignment. Thoracolumbar dextroscoliosis without vertebral anomaly. Ovoid sclerotic density in the right iliac bone, probably reflects bone island or enostosis. Reviewed by: Austin Irizarry MD on 10/31/2022 12:15 PM RISHI Approved by: Austin Irizarry MD on 10/31/2022 12:15 PM AKDT Station ID: [id number]
== END 2022-10-31 13:41 | disposition home or self-care (01) ==
LOC: ED 10:59
DX: Z04.3 Encounter for examination and observation following other accident (principal); M54.50 Low back pain, unspecified; F17.200 Nicotine dependence, unspecified, uncomplicated
CPT/HCPCS: 72128; 72131; 96374; 99284; J1170

== ENCOUNTER 2023-07-10 10:45 | Outpatient (CLI) | payer OTHER ==
--- NOTE | 2023-07-11 00:12 | XRAY Report ---
PROCEDURE: Chest 2V INDICATIONS: ASTHMA, WITH ACUTE EXACERBATION TECHNIQUE: 2 views of the chest were obtained. COMPARISON: None. FINDINGS: Surgical changes and devices: None. Lungs and pleura: No pleural effusions or pneumothorax. Lungs are clear. Mediastinum: Mediastinal contours appear normal. Heart size is normal. Bones and chest wall: No suspicious bony lesions. Overlying soft tissues appear unremarkable. IMPRESSION: Normal two-view chest x-ray Reviewed by: Austin Irizarry MD on 07/10/2023 11:11 PM RISHI Approved by: Austin Irizarry MD on 07/10/2023 11:11 PM AKNYASIA Station ID: [id number]
== END 2023-07-10 11:00 | disposition home or self-care (01) ==
LOC: DI.N 10:45
PROVIDERS: ATTEND Family Medicine
DX: J45.901 Unspecified asthma with (acute) exacerbation (principal)

== ENCOUNTER 2023-07-11 02:19 | Emergency (ER) | payer OTHER ==
--- NOTE | 2023-07-11 02:51 | ED Physician Documentation ---
PD HPI DYSPNEA - Stated complaint Stated Complaint: SOA/SORE THROAT/COUGH - Chief complaint Chief Complaint: Resp - History obtained from History obtained from: Patient - Additional information Additional information: Patient c/o cough, dyspnea, chest constriction x 1-2 days. She was seen in outpatient clinic yesterday afternoon (approximately 12 hours [employer]) and was prescribed methylprednisolone, benzonatate, z-pack, albuterol MDI. She has taken first dose of azithromycin. Presents due to ongoing cough (unclear if dry or productive), intermittent dyspnea. She is hyperkinetic at times/episodically (such as suddenly leans back, then forward during lung auscultation) and occasionally very loud sounds as if she is in brief episodes of distress, though does not appear to be in painful or respiratory distress. When I ask her why she is making these loud sounds, she indicates she doesn't feel well but cannot provide specific description as to why she makes these sounds. At times she speaks in parsed sentences, but within the same conversation, she will suddenly speak in full sentences without difficulty. 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 : None HEENT: None Psych: Depression Musculoskeletal: None Derm: None - Past Surgical History Past Surgical History: No - Present Medications Home Medications: Ambulatory Orders Medication Instructions Recorded Confirmed Fluvoxamine Maleate 50 mg PO DAILY 03/27/22 07/11/23 LORazepam [Ativan] 1 mg PO HS 03/27/22 04/06/22 diazePAM [Valium] 5 mg PO Q6HR PRN 03/27/22 04/06/22 Buspirone HCl 7.5 mg PO DAILY 04/06/22 07/11/23 Methylphenidate HCl 20 mg PO BID 04/06/22 07/11/23 atenoloL [Tenormin] 25 mg PO DAILY 04/06/22 04/06/22 oxyCODONE [Roxicodone] 5 mg PO TID PRN #15 tablet 10/31/22 Albuterol Sulf [Ventolin Hfa 2 puffs INH Q4HR 07/11/23 07/11/23 Inhaler] Azithromycin 250 mg PO BID 07/11/23 07/11/23 Benzonatate 200 mg PO DAILY 07/11/23 07/11/23 methylPREDNISolone [Medrol Dose 4 mg PO DAILY 07/11/23 07/11/23 Pack] - Allergies Allergies/Adverse Reactions: Allergies Allergy/AdvReac Type Severity Reaction Status Date / Time No Known Drug Allergies Allergy Verified 07/11/23 02:50 - Social History Does the pt smoke?: No Smoking Status: Never smoker Does the pt drink ETOH?: Yes Does the pt have substance abuse?: Yes - Immunizations Immunizations are current?: Yes - POLST Patient has POLST: No PD ED PE NORMAL - Vitals Vital signs reviewed: Yes - General General: Alert and oriented X 3, Well developed/nourished, Other (appears anxious) - HEENT HEENT: Moist mucous membranes - Neck Neck: Supple, no meningeal sign - Cardiac Cardiac: RRR, No murmur - Respiratory Respiratory: No respiratory distress, Clear bilaterally (limited exam due to movement (at times) during exam as well as loud noises on most exhales) - Abdomen Abdomen: Soft, Non tender - Extremities Extremities: No edema - Neuro Neuro: Alert and oriented X 3 Results - Vitals Vitals: Oxygen O2 Source Room air - EKG (time done) No standard instances EKG releavant findings:: EKG personally interpreted by author of this note. Relevant findings are: Rate: Rate (enter#) (88) Rhythm: NSR [place]: Normal Intervals: Normal SC QRS: Normal Ischemia: Normal ST segments - Labs Labs: Laboratory Tests 07/11/23 02:45 Nasal Adenovirus (PCR) NOT DETECTED Nasal B. parapertussis DNA (PCR) NOT DETECTED Nasal Coronavir 229E PCR NOT DETECTED Nasal Coronavir HKU1 PCR NOT DETECTED Nasal Coronavir NL63 PCR NOT DETECTED Nasal Coronavir OC43 PCR NOT DETECTED Nasal Enterovir/Rhinovir PCR NOT DETECTED Nasal Influenza B PCR NOT DETECTED Nasal Influenza A PCR NOT DETECTED Nasal Parainfluen 1 PCR NOT DETECTED Nasal Parainfluen 2 PCR NOT DETECTED Nasal Parainfluen 3 PCR NOT DETECTED Nasal Parainfluen 4 PCR NOT DETECTED Nasal RSV (PCR) NOT DETECTED Nasal B.pertussis DNA PCR NOT DETECTED Nasal C.pneumoniae (PCR) NOT DETECTED Andrew Human Metapneumo PCR DETECTED A Nasal M.pneumoniae (PCR) NOT DETECTED Nasal SARS-CoV-2 (PCR) NOT DETECTED - Rads (name of study) CXR Relevant Findings:: Prelim report reviewed, See rad report PD Medical Decision Making - ED course Complexity details: reviewed results, re-evaluated patient, considered differential, d/w patient ED course: given duoneb and she reports mild improvement with this. Unremarkable EKG, CXR. I was pondering blood tests, but when I mentioned d-dimer (explained in lay- person terms, both as to what the test is used for and why I was considering ordering it), she immediately tells me she is flatly refusing any and all blood tests. She says "my blood is so thick, it takes forever to get even a few drops out of me". I explained that, though her chest pain may very well be due to her coughing as she is saying it is, I would consider doing a cardiac enzyme test (troponin) and the d-dimer to screen for possible PE ("lung clot"). she again adamantly refuses any and all blood tests at this time. The results of respiratory PCR panel are pending when I was informed by ED RN that patient had left before completion of treatment. It is unclear why it was taking so long for the respiratory PCR panel to be complete when it had been ordered quite some time before patient left, but the reasoning is that anti- viral rx could be considered if positive for influenza and/or COVID. PCR panel is positive for human metapneumovirus (noted after patient leaves ED) Departure - Departure Disposition: 01 Home, Self Care Clinical Impression: Bronchitis Condition: Good Instructions: ED Bronchitis Asthmatic Forms: Activity restrictions Discharge Date/Time: 07/11/23 04:16
[2023-07-11 02:56] VITALS: BP 151/126
[2023-07-11] MEDS: IPRATROPIUM/ALBUTEROL 3 ML NEB INH STA (03:09)
[2023-07-11 04:15] LABS: CORONAVIRUS 229E-RESP PCR NOT DETECTED; CORONAVIRUS HKU1-RESP PCR NOT DETECTED; CORONAVIRUS NL63-RESP PCR NOT DETECTED; CORONAVIRUS OC43-RESP PCR NOT DETECTED
[2023-07-11 04:16] LABS: B. PARAPERTUSSIS- RESP PCR PAN NOT DETECTED; B. PERTUSSIS- RESP PCR PANEL NOT DETECTED; C. PNEUMONIAE- RESP PCR PANEL NOT DETECTED; HUMAN METAPNEUMOVIRUS DETECTED; INFLUENZA A- RESP PCR PANEL NOT DETECTED; INFLUENZA B - RESP PCR PANEL NOT DETECTED; M. PNEUMONIAE- RESP PCR PANEL NOT DETECTED; PARAINFLUENZA VIRUS 1 NOT DETECTED; PARAINFLUENZA VIRUS 2 NOT DETECTED; PARAINFLUENZA VIRUS 3 NOT DETECTED; PARAINFLUENZA VIRUS 4 NOT DETECTED; RHINOVIRUS/ENTEROVIRUS NOT DETECTED; RSV- RESP PCR PANEL NOT DETECTED; SARS-CoV-2 -RESP PCR PANEL NOT DETECTED
[2023-07-11 04:24] VITALS: O2SAT 98
== END 2023-07-11 04:16 | disposition home or self-care (01) ==
LOC: ED 02:19
DX: J40 Bronchitis, not specified as acute or chronic (principal)
CPT/HCPCS: 87633; 93005; 94640; 94664; 99284